=== PATIENT | female | born 1945 | race Two or more races ===

== ENCOUNTER 2016-12-23 19:38 | Inpatient (IN) | payer MEDICARE ==
[~2016-12-23] VITALS: Ht 170.2 cm; Wt 64.1 kg
--- NOTE | 2016-12-23 19:55 | NUR ---
Patient arrived via EMS to [facility]. Patient was calm and cooperative upon her arrival. Patient is alert and oriented to name and only. Vital signs are BP 116/82, Pulse 102, RR 20 SpO2 96% on room air. Patient is disoriented to time and situation. Patient is having trouble answering this nurses questions. Patient has Hx of Aphasia r/t recent stroke on 12/04. Patient ate 100% of her dinner after her assessment. Patient is sitting quietly in day room at this time and is in no acute distress. Will continue to monitor.
--- NOTE | 2016-12-23 20:00 | NUR ---
Behavior Intervention Response and Plan: BIRP Note: Behavior: Assumed Care of patient, patient located in Patient Room at shift change. Patient exhibited the following behavior Restless, Disorganized, Compliant. Brief assessment on rounds of vital signs, medication needs, lab studies, and pain. Treatment plan problems . Intervention: Patient assessed and the following interventions initiated safety checks 15 Minute Checks Head to toe Assessment , Cognitive Assessment , Oral Hydration. Response: After interactions and interventions patient responded in the following manner, Able to Focus on Task , Cooperative ,Compliant. Continue to assess behaviors and condition will continue to monitor throughout the shift as needed. Patient educated on ADL's, and hand hygiene. 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 Continue to assess patient for changes in above assessment. Monitor for medication needs, pain, and safety concerns. Hourly rounding performed to ensure safe environment.
[2016-12-23 20:29] VITALS: BP 116/82
[2016-12-23] MEDS ORDERED: ASPI-630 PO (20:52)
[2016-12-23] MEDS ORDERED: DOCU100C28 PO (20:54)
[2016-12-23] MEDS ORDERED: ATOR40TA59 PO (20:54)
[2016-12-23] MEDS ORDERED: POLY255P PO (20:55)
[2016-12-23] MEDS ORDERED: FAMO20TA5 PO (21:10)
[2016-12-23] MEDS ORDERED: MAGN400O7 PO (21:10)
[2016-12-23] MEDS ORDERED: BISA10SU55 RC (21:10)
[2016-12-23] MEDS ORDERED: SENN-79 PO (21:10)
[2016-12-23] MEDS ORDERED: HALO5AMP2 SUBCUT (21:10)
[2016-12-23] MEDS ORDERED: ACET325T9 PO (21:10)
[2016-12-23] MEDS ORDERED: RISP1DIS PO (21:10)
[2016-12-23] MEDS ORDERED: BISACODYL 10 MG SUPP.RECT RC PRN (21:30)
[2016-12-23] MEDS ORDERED: MAG HYDROX/AL HYDROX/SIMETH 30 ML ORAL.SUSP PO PRN (21:30)
[2016-12-23] MEDS ORDERED: FAMOTIDINE 20 MG TABLET PO PRN (21:30)
[2016-12-23] MEDS ORDERED: SENNOSIDES 8.6 MG TABLET PO PRN (21:30)
[2016-12-23] MEDS ORDERED: ACETAMINOPHEN 325 MG TABLET PO PRN (21:30)
[2016-12-23] MEDS ORDERED: METHYL SALICYLATE/MENTHOL TOPICAL OINTMENT 29GM TUBE. TP PRN (21:30)
[2016-12-23] MEDS ORDERED: MAGNESIUM HYDROXIDE 2,400 MG/30 ML ORAL.SUSP. PO PRN (21:30)
[2016-12-23] MEDS: risperiDONE 1 MG TABLET. PO SCH (22:00)
[2016-12-24 06:12] VITALS: BP 119/73
--- NOTE | 2016-12-24 06:35 | NUR ---
Patient has been provided with Practical Counseling for tobacco cessation. It included a face to face interaction and the following was discussed: Recognizing danger situations, Developing coping skills,Basic cessation information. Will follow for discharge needs and discharge planning.
--- NOTE | 2016-12-24 06:47 | EKG ---
[address] [address] Test Date: 2016-12-24 Test Time: 06:18:42 Pat Name: GITA CASTELLON Department: Room: [address] [place] [address] Gender: F Box Person: BRIGIDO : 1945 Requested By: RELL PUENTE Order Number: [id number] Reading MD: Darrius Urias Measurements Intervals [place] Rate: 97 P: 53 WV: 124 QRS: -35 QRSD: 86 T: 34 QT: 358 QTc: 459 Interpretive Statements SINUS RHYTHM Electronically Signed On 12-26-2016 11:50:39 CDT by Darrius Urias
[2016-12-24 08:07] LABS: BASO # 0.1 x10^3/uL (0.0-0.2); BASO % 1 % (0-3); EOS # 0.1 x10^3/uL (0.0-0.7); EOS % 2 % (0-3); HEMATOCRIT 43.6 % (36.0-47.0); HEMOGLOBIN 14.5 g/dL (12.0-15.5); LYMPH # 1.7 x10^3/uL (1.0-4.8); LYMPH % 31 % (24-48); MEAN CORPUSCULAR HEMOGLOBIN 31 pg (25-35); MEAN CORPUSCULAR HGB CONC 33 g/dL (31-37); MEAN CORPUSCULAR VOLUME 93 fL (79-100); MONO # 0.5 x10^3/uL (0.0-1.1); MONO % 10 % (0-9); NEUT # 3.1 x10^3uL (1.8-7.7); NEUT % 56 % (31-73); PLATELET COUNT 269 x10^3/uL (140-400); RED CELL DISTRIBUTION WIDTH 12.5 % (11.5-14.5); WHITE BLOOD COUNT 5.5 x10^3/uL (4.0-11.0)
[2016-12-24 08:32] LABS: ALBUMIN 3.9 g/dL (3.4-5.0); CALCIUM 9.4 mg/dL (8.5-10.1); CREATININE 0.8 mg/dL (0.6-1.0); GFR 71.1; MAGNESIUM 2.2 mg/dL (1.8-2.4); POTASSIUM 3.7 mmol/L (3.5-5.1); TOTAL BILIRUBIN 1.2 mg/dL (0.2-1.0); TOTAL PROTEIN 7.9 g/dL (6.4-8.2)
[2016-12-24] MEDS: ATORVASTATIN CALCIUM 20 MG TABLET PO SCH ×2 (09:00→09:07)
[2016-12-24] MEDS: NICOTINE 21MG PATCH. TD SCH ×2 (09:00→09:07)
[2016-12-24] MEDS: ASPIRIN 81 MG TAB.CHEW PO SCH ×2 (09:00→09:08)
[2016-12-24] MEDS: POLYETHYLENE GLYCOL 3350 17 GM PACKET. PO SCH ×2 (09:00→09:07)
[2016-12-24] MEDS: DOCUSATE SODIUM 100 MG CAPSULE PO SCH ×3 (09:00→19:45)
[2016-12-24] MEDS: risperiDONE 1 MG TABLET. PO SCH (09:07)
[2016-12-24 11:03] LABS: THYROID STIM HORMONE (TSH) 3.277 uIU/mL (0.358-3.740)
[2016-12-24 12:07] LABS: T3 TOTAL 136 ng/dL (71-180); THYROXINE 7.8 ug/dL (4.5-12.0)
--- NOTE | 2016-12-24 15:20 | HP ---
ADMIT DATE: 12/24/2016 HISTORY AND PHYSICAL FOR THE [facility] REASON FOR ADMISSION TO [facility]IT: This is a 71-year-old female, who has been at [facility] rehabilitation after suffering a stroke on 12/08/2016. She had a left temporoparietal intraparenchymal hemorrhage and subsequent cognitive impairment, gait ataxia decline and aphasia. She was then admitted for rehab. While at rehab evidently she has been angry, irritable and threatening to hit people and physically aggressive with her son, requiring one-on-one and p.r.n. Haldol prescribed. ALLERGIES: CODEINE. MEDICATIONS: Haldol had been prescribed and discontinued. Other medications reviewed and are available on the MAR. PAST MEDICAL HISTORY: As stated; 1. Recent left temporoparietal intraparenchymal hemorrhage. 2. Cognitive impairment. 3. Gait ataxia. 4. Aphasia. 5. AFib with ablation. 6. Carotid artery stenosis. 7. Hyperlipidemia. 8. Peptic ulcer disease. 9. Headaches. 10. Gastroesophageal reflux disease 11. Degenerative joint disease. 12. Generalized anxiety disorder. PAST SURGICAL HISTORY: She has had a carotid endarterectomy, 3 back surgeries. HABITS: The patient was a smoker and at the time of her stroke, she states that she no longer smokes. In the records states that she smoked up to 40 cigarettes a day. Drinks occasionally. Previously lived at home, independent with ADLs and mobility without assistance prior to stroke. She states she has a cat that she absolutely loves. She also stated that she never smoked in the house. REVIEW OF SYSTEMS: Review of the review of systems on 12/08/2016. I believe the patient no longer really has aphasia and the patient ambulates without a walker and did not have any other complaints. She was fairly good with her history, but then would make some statements that made no sense during the interview. OBJECTIVE: VITAL SIGNS: Blood pressure 119/73, pulse 104, respirations 20, pulse ox 95% on room air. The patient's height is 67 inches, weight 139 pounds. GENERAL: The patient ambulated to her room without difficulty. HEENT: Her hearing is normal. Her eyes were clear. Her pupils were equal, round, react to light. Extraocular muscles were intact. The patient denied any hemianopsia. Her nose was patent. Her throat was clear. NECK: Supple, without adenopathy, could not appreciate any carotid bruits. ABDOMEN: Soft, nontender. EXTREMITIES: Without edema. NEUROLOGIC: Machine Feller strength slightly weaker on the left. Reflexes were 2+/4. As stated, she ambulates without assistance. Gag reflex is intact. Able to clear her throat without problems and can follow directions for cranial nerves. LABORATORY DATA: Normal CBC. Chemistry; vitamin D is pending. TSH is normal. Bilirubin slightly elevated at 1.2 with normal other tests. Iron studies normal. RPR pending. MENTAL STATUS: The patient does admit to being somewhat angry and irritable, but not threatening anyone. She wants to go home and be with her cat. She knew her address and then made some confusing statements. ASSESSMENT: 1. A 71-year-old status post CVA and has resolved most of the residual deficits that have been stated in the transfer information. 2. Tobacco use disorder. 3. Gastroesophageal reflux disease. 4. Anxiety. 5. Peptic ulcer disease. 6. Degenerative joint disease. 7. Fall risk. 8. Previous dysphagia. Should have this reevaluated. PLAN: Follow along with Dr. Menendez. Treat her medical conditions. FER MATTSON DO DR: JHOANA/gui JOB#: [id number] / [id number]
[2016-12-24] MEDS: risperiDONE ORAL 1 MG/ML 30ml BOTTLE. PO SCH (17:31)
--- NOTE | 2016-12-24 18:48 | NUR ---
Behavior Intervention Response and Plan: BIRP Note: Behavior: Assumed Care of patient, patient located in Dayroom at shift change. Patient exhibited the following behavior Restless, Disorganized, Resistive. Brief assessment on rounds of vital signs, medication needs, lab studies, and pain. Treatment plan problems . Intervention: Patient assessed and the following interventions initiated safety checks 15 Minute Checks Head to toe Assessment , Cognitive Assessment , Oral Hydration. Response: After interactions and interventions patient responded in the following manner, Able to calm , non-compliant , resistive. Continue to assess behaviors and condition will continue to monitor throughout the shift as needed. Patient educated on ADL's, and hand hygiene. 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 Continue to assess patient for changes in above assessment. Monitor for medication needs, pain, and safety concerns. Hourly rounding performed to ensure safe environment.
--- NOTE | 2016-12-24 22:00 | NUR ---
Behavior Intervention Response and Plan: BIRP Note: Behavior: Assumed Care of patient, patient located in Hallway at shift change. Patient exhibited the following behavior Interactive, Wandering, Non Compliant with Meds. Brief assessment on rounds of vital signs, medication needs, lab studies, and pain. Treatment plan problems . Intervention: Patient assessed and the following interventions initiated safety checks 15 Minute Checks Head to toe Assessment , Call dick in reach , Medications. Response: After interactions and interventions patient responded in the following manner, Resistive , Social ,Resistive. Continue to assess behaviors and condition will continue to monitor throughout the shift as needed. Patient educated on ADL's, and hand hygiene. 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 Continue to assess patient for changes in above assessment. Monitor for medication needs, pain, and safety concerns. Hourly rounding performed to ensure safe environment.
[2016-12-24 23:11] LABS: HEMOGLOBIN A1C 5.8 % (4.8-5.6)
[2016-12-25 06:45] VITALS: BP 111/63
[2016-12-25] MEDS: risperiDONE ORAL 1 MG/ML 30ml BOTTLE. PO SCH ×2 (08:08→19:17)
[2016-12-25] MEDS: NICOTINE 21MG PATCH. TD SCH (09:00)
[2016-12-25] MEDS: POLYETHYLENE GLYCOL 3350 17 GM PACKET. PO SCH (09:00)
[2016-12-25] MEDS: DOCUSATE SODIUM 100 MG CAPSULE PO SCH ×2 (09:00→19:17)
[2016-12-25] MEDS: ASPIRIN 81 MG TAB.CHEW PO SCH (09:00)
[2016-12-25] MEDS: ATORVASTATIN CALCIUM 20 MG TABLET PO SCH (09:00)
--- NOTE | 2016-12-25 09:37 | CONS ---
DATE OF CONSULTATION: 12/23/2016 REASON FOR CONSULTATION: Status post hemorrhagic stroke with psychosis and behavior disturbances. HISTORY OF PRESENT ILLNESS: This is a 71-year-old right-handed female, who was transferred from rehab center because of increasing symptoms of behavior disturbances, described as aggressive behavior and she has been very agitated and sometimes threatened to hurt herself and other people. On 12/04/2016, the patient had difficulty to speak and had comprehension problems. She was found to have a left hemorrhagic stroke described as a left temporoparietal intraperitoneal hemorrhage resulted in a sensory aphasia includes comprehension, naming, writing, and difficulty finding words. The patient was evaluated by neurosurgeon and Neurology, who recommended conservative management after obtaining MRI and MRA. During her rehabilitation, the patient became very agitated with aggressive behavior. PAST MEDICAL HISTORY: Significant for hemorrhagic stroke as described above, atrial fibrillation, hypertension, hyperlipidemia, peptic ulcer disease, global headache, acute GERD, degenerative joint and disk disease, and anxiety disorder. PAST SURGICAL HISTORY: Significant for lumbosacral spine surgeries x 3. SOCIAL HISTORY: The patient lives alone independently. She is a smoker and she smoked 40 cigarettes daily. There is no history of alcohol drinking or illicit drug use. FAMILY HISTORY: Noncontributory. CURRENT HOME MEDICATIONS: Lipitor 40 mg daily, MiraLax 17 g p.r.n. for constipation, Colace 100 mg b.i.d., aspirin 81 mg daily, nicotine 21 mg 1 patch, Risperdal 1 mg b.i.d., olanzapine 2.5 mg p.o. q.2 hours p.r.n. for agitation, Senna 8.6 mg b.i.d., magnesium (MOM), Pepcid 20 mg p.o. daily, Dulcolax suppository, and Tylenol. ALLERGIES: . REVIEW OF SYSTEMS: A 10-point review of system was performed and consistent with significant language dysfunction and sensory aphasia. PHYSICAL EXAMINATION: GENERAL: Well-developed, well-nourished white female, not in acute distress. She weighs 159 pounds. VITAL SIGNS: Blood pressure 118/73, respiratory rate 20, pulse is 104, sinus tachycardia, oxygen saturation 95% on room air, and temperature is 97. HEENT: Normocephalic, atraumatic, otherwise unremarkable. NECK: Supple. Negative for carotid bruit, lymphadenopathy or thyromegaly. LUNGS: Clear to A and P. CARDIOVASCULAR: Regular rate and rhythm, normal S1, S2. ABDOMEN: Soft. Bowel sounds positive. EXTREMITIES: Negative for cyanosis, clubbing or edema. NEUROLOGICAL EXAM: 1. Mental Status: The patient is alert to herself, but she is confused and disoriented to place, time and person. Speech is somewhat fluent, but comprehension, naming, writing, and readings are poor. The patient follows 1-step commands. Her comprehension is poor as well as her insight. Memory: Language and abstract thinking are markedly severely impaired. Comprehension, reading, writing, repetitions are impaired. 2. Cranial Nerves: Visual sanchez appeared to be intact. Pupils are reactive to light and accommodation. Extraocular movements are intact. There is no nystagmus. There is no facial motor or sensory deficit. Hearing is appeared to be intact. The palate is elevated symmetrically. Sternocleidomastoid muscles are powerful bilaterally. The patient shrugs her shoulders symmetrically with protrudes her tongue in the midline without fasciculation or atrophy. 3. Motor Examination: No focal muscle bulk was seen. The tone is normal. The strength is 4/5 throughout. Sensory examination revealed normal pinprick on light touch, senses throughout. Deep tendon reflexes were symmetric and hypoactive with absent Achilles responses bilaterally. Gait and coordination are normal. LABORATORY DATA: CBC revealed white blood cells of 5500, hemoglobin 14.5, hematocrit 43.6, and platelet count 269,000. Chemistry revealed sodium of 141, potassium 3.7, chloride 104, CO2 29. BUN 17, creatinine 0.8, glucose is 115, calcium 9.4. Liver enzymes are normal. Lipid profile is normal. Thyroid profile is normal. Vitamin D is pending. IMPRESSION: 1. Status post left temporoparietal hemorrhagic stroke resulted in marked language dysfunctions including naming, writing, comprehension, repetition, finding difficulty words and apraxia. 2. Intermittent psychosis with behavior disturbances. 3. Multiple medical problems include hypertension, hyperlipidemia, GERD, peptic ulcer disease, status post three back surgeries and endarterectomy. RECOMMENDATIONS: 1. Continue with current home medications. 2. Continue with psychiatric evaluation and continue with current psychiatric care initiated by Dr. Menendez. M Annel YEE MD DR: ROSAURA/gui JOB#: [id number] / [id number]
--- NOTE | 2016-12-25 11:30 | NUR ---
THERAPEUTIC RECREATION GROUP NOTE TITLE :Movement to Music:Flexibility ACTIVITY : Movement/ Exercise GOAL : Increase morale, attention, flexibility. Decrease stress/anxiety. DURATION : 30 Minutes RESPONSE : No participation.
[2016-12-25 16:47] VITALS: BP 105/66
--- NOTE | 2016-12-25 18:49 | NUR ---
Behavior Intervention Response and Plan: BIRP Note: Behavior: Assumed Care of patient, patient located in Hallway at shift change. Patient exhibited the following behavior withdrawn, calm, Non Compliant with Meds. Brief assessment on rounds of vital signs, medication needs, lab studies, and pain. Treatment plan problems . Intervention: Patient assessed and the following interventions initiated safety checks 15 Minute Checks Head to toe Assessment , Call dick in reach , Medications. Response: After interactions and interventions patient responded in the following manner, calm , interactive, compliant. Continue to assess behaviors and condition will continue to monitor throughout the shift as needed. Patient educated on ADL's, and hand hygiene. Plan: Continue to monitor Master Treatment Plan for patient's progress toward short term goals of Improved Mood, Medication Compliance, mcfp goals to return to previous living setting vs placement. Continue to assess patient for changes in above assessment. Monitor for medication needs, pain, and safety concerns. Hourly rounding performed to ensure safe environment.
--- NOTE | 2016-12-25 19:54 | PDOC ---
Exam Anson Demential Exam: Anson Note: Please also refer to the separate dictated note~for this date of service dictated separately.~Patient seen individually. Discussed the patient with Nursing staff reviewed the chart.~Reviewed interim history and current functioning. Reviewed vital signs,~Labs/ Radiology~and current medications noted below. Continue current treatment with the changes noted in the dictated addendum note Assessment: Vital Signs: Vital Signs Date Time Temp Pulse Resp B/P (MAP) Pulse Ox O2 Delivery O2 Flow Rate FiO2 12/25/16 16:47 97.6 104 18 105/66 (79) 95 I&O Intake and Output 12/25/16 06:59 Intake Total 600 ml Balance 600 ml Intake Oral 600 ml Current Medications: Meds: Current Medications Nicotine (Nicoderm Cq 21mg) 1 patch DAILY TD ; Start 12/24/16 at 09:00 Risperidone (RisperDAL) 1 mg BID PO Last administered on 12/24/16 09:07; Start 12/23/16 at 22:00; Stop 12/24/16 at 16:36; Status DC Acetaminophen (Tylenol) 650 mg PRN Q4HRS PRN PO PAIN / TEMP; Start 12/23/16 at 21:30 Aspirin (Children'S Aspirin) 81 mg DAILY PO ; Start 12/24/16 at 09:00 Bisacodyl (Dulcolax Supp) 10 mg PRN DAILY PRN RC CONSTIPATION; Start 12/23/16 at 21:30 Docusate Sodium (Colace) 100 mg BID PO Last administered on 12/25/16 19:17; Start 12/24/16 at 09:00 Famotidine (Pepcid) 20 mg PRN BID PRN PO DYSPEPSIA; Start 12/23/16 at 21:30 Magnesium Hydroxide (Milk Of Magnesia) 2,400 mg PRN DAILY PRN PO CONSTIPATION; Start 12/23/16 at 21:30 Polyethylene Glycol (miraLAX) 17 gm DAILY PO ; Start 12/24/16 at 09:00 Sennosides (Senna) 8.6 mg PRN BID PRN PO CONSTIPATION; Start 12/23/16 at 21:30 Atorvastatin Calcium (Lipitor) 40 mg DAILY PO ; Start 12/24/16 at 09:00 Al Hydroxide/Mg Hydroxide (Mylanta Plus Xs) 15 ml PRN AFTMEALHC PRN PO DYSPEPSIA; Start 12/23/16 at 21:30 Multi-Ingredient Ointment (Analgesic [place]) 1 josiane PRN QID PRN TP MUSCLE PAIN; Start 12/23/16 at 21:30 Olanzapine (ZyPREXA ZYDIS) 2.5 mg PRN Q2HR PRN PO ANXIETY / AGITATION; Start at 21:30 Risperidone (RisperDAL) 1 mg BID PO Last administered on 12/25/16t 19:17; Start 12/24/16 at 21:00 Active Scripts Active Reported Haldol (Haloperidol Lactate) 5 Mg/1 Ml Ampul 2 Mg SUBCUT PRN Q4HRS PRN Famotidine 20 Mg Tablet 20 Mg PO PRN BID PRN Senna (Sennosides) 8.6 Mg Tablet 8.6 Mg PO PRN BID PRN Milk Of Magnesia (Magnesium Hydroxide) 400 Mg/5 Ml Oral.susp 2,400 Mg PO PRN DAILY PRN Dulcolax (Bisacodyl) 10 Mg Supp.rect 10 Mg RC PRN DAILY Tylenol (Acetaminophen) 325 Mg Tablet 650 Mg PO Q4HRS PRN Risperidone 1 Mg/1 Ml Disp.syrin 1 Mg PO BID Polyethylene Glycol 3350 255 Gm Powder 17 Gm PO DAILY Docusate Sodium 100 Mg Capsule 100 Mg PO BID Atorvastatin Calcium 40 Mg Tablet 40 Mg PO DAILY Aspirin 81 Mg Tab.chew 81 Mg PO DAILY RELL PUENTE MD Dec 25, 2016 19:54
--- NOTE | 2016-12-25 22:29 | HP ---
ADMIT DATE: 12/23/2016 IDENTIFYING DATA: The patient is a 71-year-old female who is in the rehabilitation unit, where she was admitted status post CVA. The patient has been increasingly angry, irritable, threatening to hit, wandering, physical aggressive at son. She has appeared paranoid, delusional, confusion worsened by her aphasia. She has failed outpatient psychiatric interventions resulting in this referral. The patient was seen individually evening of 12/25/2016 for this evaluation. Discussed with nursing staff, reviewed current past records. CHIEF COMPLAINT: "I don't know. Ask my son. I don't know anything." HISTORY OF PRESENT ILLNESS: The patient has a history of major neurocognitive disorder, vascular with aphasia, status post cerebrovascular accident. She has been refusing her psychotropics, threatening to hit staff at the rehab facility, physically aggressive with son, increasingly confused, paranoid, delusional. She has had sleep and appetite changes, had to be placed on one-on-one status, p.r.n. Haldol was given for control of for psychosis, agitation. No clear history of bipolar disorder, suicidal or homicidal ideation. PAST PSYCHIATRIC HISTORY: As above. Symptoms have been worsening for about 1 week. PAST MEDICAL HISTORY: Left-sided hemorrhagic CVA 3 weeks on 12/08/2016, atrial fibrillation with ablation, carotid artery stenosis status post carotid endarterectomy, hyperlipidemia, peptic ulcer disease, chronic headaches, degenerative joint disease, GERD, history of 3 back surgeries, tobacco abuse. Accu-Cheks none; diet regular; medications whole when complied; ambulatory ad sukhjinder. CODE STATUS: Full. ALLERGIES: CODEINE. FAMILY HISTORY: Noncontributory. CURRENT PSYCHOTROPICS: Risperdal 1 mg b.i.d., Zyprexa p.r.n. FAMILY HISTORY: Noncontributory. SOCIAL HISTORY: No alcohol, drug abuse, physical, sexual or elder abuse history is noted. Not known to be a perpetrator. MENTAL STATUS EXAMINATION: The patient had barricaded her room, refused to let me in, I had to pry the door open. She is paranoid, suspicious, refusing to answer questions, "Call my son" and she related a telephone #[phone] for the son. However, the telephone number we have on file for the son is [phone]-. Insight limited, judgment marginal, language function impaired, due to aphasia the attention span short. Mood and affect labile, psychotic. ASSETS: Supportive family. IMPRESSION: Major neurocognitive disorder, vascular with delusion, depression, behavioral disturbance; anxiety disorder, unspecified; impulse control disorder, unspecified. Rest as above. PLAN: Admit to the geropsychiatry unit at [facility]. I will see the patient daily individually, observe baseline and make further adjustments as clinically indicated. Continue current psychotropics but I would like to reduce the Risperdal given her history of CVA. We will go ahead and reduce it from 1 mg b.i.d. to 0.5 mg in the morning and 1 mg at night, add Zoloft 50 mg a day for her mood, anxiety, obsessive thought processes. Consider Depakote as a mood stabilizer. I will see the patient daily individually. Request medical followup with Dr. Mccord/Dr. Evans further adjustments per clinically indicated. RELL PUENTE MD DR: BRIONNA/gui JOB#: [id number] / [id number]
--- NOTE | 2016-12-26 00:04 | NUR ---
Behavior Intervention Response and Plan: BIRP Note: Behavior: Assumed Care of patient, patient located in Patient Room at shift change. Patient exhibited the following behavior Disorganized, Irritable, Defensive. Brief assessment on rounds of vital signs, medication needs, lab studies, and pain. Treatment plan problems :1-2 Intervention: Patient assessed and the following interventions initiated safety checks 15 Minute Checks Cognitive Assessment , Head to toe Assessment , Medications. Response: After interactions and interventions patient responded in the following manner, Withdrawn , Non Compliant with Meds ,Non Compliant. Continue to assess behaviors and condition will continue to monitor throughout the shift as needed. Patient educated on ADL's, and hand hygiene. 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 Plan: Continue to monitor Master Treatment Plan for patient's progress toward short term goals of Decreased Anxiety, Improved Mood, longterm goals to return to previous living setting vs placement. Continue to assess patient for changes in above assessment. Monitor for medication needs, pain, and safety concerns. Hourly rounding performed to ensure safe environment.
[2016-12-26 06:09] VITALS: BP 117/79
[2016-12-26] MEDS ORDERED: risperiDONE 0.25 MG TABLET. PO SCH (09:00)
--- NOTE | 2016-12-26 09:15 | NUR ---
THERAPEUTIC RECREATION GROUP NOTE TITLE :[place]/ 21 ACTIVITY : Activities and Games GOAL : Increase social interaction, fine motor skills. Maintain or improve mental functioning. Decrease restlessness DURATION : 60 minutes RESPONSE : No participation.
[2016-12-26] MEDS: DOCUSATE SODIUM 100 MG CAPSULE PO SCH ×2 (09:30→21:13)
[2016-12-26] MEDS: ATORVASTATIN CALCIUM 20 MG TABLET PO SCH (09:30)
[2016-12-26] MEDS: ASPIRIN 81 MG TAB.CHEW PO SCH (09:31)
[2016-12-26] MEDS: POLYETHYLENE GLYCOL 3350 17 GM PACKET. PO SCH (09:31)
[2016-12-26] MEDS: NICOTINE 21MG PATCH. TD SCH (09:31)
[2016-12-26] MEDS: SERTRALINE 25 MG TABLET. PO SCH (09:33)
--- NOTE | 2016-12-26 09:46 | NUR ---
SW reviewed Pt insurance upon admit. Face sheet, Intake and C-SNAP indicate Pt. is Medicare A & B only, with No Part C. Auth not required.
--- NOTE | 2016-12-26 09:47 | NUR ---
SHIRLEY attempted to meet w/Pt. while PT. in the day room to complete Psychosocial Assessment and reason for admit. Pt. was agitated, demanding to be let out side so that she could leave and we wouldn't have to worry about her ever coming back. SHIRLEY stated SW could not open the door to the patio, and she needed to stay so she could be seen by the DrLindsey this evening. PT. stated "This place is fucked up". Pt. refused to continue to talk w/this SW since SHIRLEY was not going to allow Pt. to leave.
--- NOTE | 2016-12-26 11:05 | NUR ---
ACTIVITY THERAPY ASSESSMENT Completed based on observation and interview. Pt. was laying in her bed and originally said she did not want to talk but continued to express her desire to leave and her attention went back to her the medical bracelet on her arm being too tight. CHARTER BOAT CAPTAIN got Pt. helped put on a new bracelet after several minutes of listening to Pt. Pt. stated she could not think about things she likes to do at this time because there was too much going on in her head. Pt. continued to talk about wanting to leave, not even needing a ride, she would just walk. CHARTER BOAT CAPTAIN explained the structure and encouraged cooperation, group participation, and explained the doctor comes in the evenings. Pt. had difficulty expressing herself clearly, she had difficulty using number values clearly when it came to age, dates, etc. Pt. had trouble using the correct word to complete her sentences. Pt. really wanted a cigarette and repeatedly asked for one and to go outside. CHARTER BOAT CAPTAIN said smoking was not allowed but talked about nurse about alternatives gum/patches. Pt. was agreeable to take medication in order for her to go outside. Pt. needed reminders about structure when she began to ask to be let out. Pt. Initial goal aimed to increase time management skills and leisure awareness: Pt. will participate in all group and individual activities focused on time management.
--- NOTE | 2016-12-26 13:15 | NUR ---
THERAPEUTIC RECREATION GROUP NOTE TITLE :Grid Scattergories ACTIVITY : Cognitive Stimulation GOAL : Maintain or improve cognitive functioning and memory. DURATION : 60 minutes RESPONSE : No participation.
--- NOTE | 2016-12-26 14:30 | NUR ---
THERAPEUTIC RECREATION GROUP NOTE TITLE :Movie, Popcorn, Cookies and Coffee ACTIVITY : Activities and Games GOAL : Increase alertness, focus, morale, decrease stress DURATION : 90 minutes RESPONSE : Full participation. Pt. watched the movie throughout the session. She got up several times needing more snacks. With reminders and encouragement, Pt. complied to rejoin the movie and wait patiently. She was able to express herself clearly.
[2016-12-26 15:52] VITALS: BP 104/64
--- NOTE | 2016-12-26 20:01 | PDOC ---
Exam Anson Demential Exam: Anson Note: Please also refer to the separate dictated note~for this date of service dictated separately.~Patient seen individually. Discussed the patient with Nursing staff reviewed the chart.~Reviewed interim history and current functioning. Reviewed vital signs,~Labs/ Radiology~and current medications noted below. Continue current treatment with the changes noted in the dictated addendum note Assessment: Vital Signs: Vital Signs Date Time Temp Pulse Resp B/P (MAP) Pulse Ox O2 Delivery O2 Flow Rate FiO2 12/26/16 15:52 97.3 131 18 104/64 (77) 95 I&O Intake and Output 12/26/16 07:00 Intake Total 520 ml Balance 520 ml Intake Oral 520 ml # Voids 1 Current Medications: Meds: Current Medications Nicotine (Nicoderm Cq 21mg) 1 patch DAILY TD Last administered on 12/26/16 09: 31; Start 12/24/16 at 09:00 Risperidone (RisperDAL) 1 mg BID PO Last administered on 12/24/16 09:07; Start 12/23/16 at 22:00; Stop 12/24/16 at 16:36; Status DC Acetaminophen (Tylenol) 650 mg PRN Q4HRS PRN PO PAIN / TEMP; Start 12/23/16 at 21:30 Aspirin (Children'S Aspirin) 81 mg DAILY PO Last administered on 12/26/16 09: 31; Start 12/24/16 at 09:00 Bisacodyl (Dulcolax Supp) 10 mg PRN DAILY PRN RC CONSTIPATION; Start 12/23/16 at 21:30 Docusate Sodium (Colace) 100 mg BID PO Last administered on 12/26/16 09:30; Start 12/24/16 at 09:00 Famotidine (Pepcid) 20 mg PRN BID PRN PO DYSPEPSIA; Start 12/23/16 at 21:30 Magnesium Hydroxide (Milk Of Magnesia) 2,400 mg PRN DAILY PRN PO CONSTIPATION; Start 12/23/16 at 21:30 Polyethylene Glycol (miraLAX) 17 gm DAILY PO Last administered on 12/26/16 09: 31; Start 12/24/16 at 09:00 Sennosides (Senna) 8.6 mg PRN BID PRN PO CONSTIPATION; Start 12/23/16 at 21:30 Atorvastatin Calcium (Lipitor) 40 mg DAILY PO Last administered on 12/26/16 09 :30; Start 12/24/16 at 09:00 Al Hydroxide/Mg Hydroxide (Mylanta Plus Xs) 15 ml PRN AFTMEALHC PRN PO DYSPEPSIA; Start 12/23/16 at 21:30 Multi-Ingredient Ointment (Analgesic [place]) 1 josiane PRN QID PRN TP MUSCLE PAIN; Start 12/23/16 at 21:30 Olanzapine (ZyPREXA ZYDIS) 2.5 mg PRN Q2HR PRN PO ANXIETY / AGITATION Last administered on 12/26/16 11:47; Start 12/23/16 at 21:30 Risperidone (RisperDAL) 1 mg BID PO Last administered on 12/25/16 19:17; Start 12/24/16 at 21:00; Stop 12/25/16 at 21:44; Status DC Risperidone (RisperDAL) 1 mg HS PO ; Start 12/26/16 at 21:00; Stop 12/26/16 at 21:00; Status DC Risperidone (RisperDAL) 0.5 mg DAILY PO Last administered on 12/26/16 09:33; Start 12/26/16 at 09:00; Stop 12/26/16 at 18:34; Status DC Sertraline HCl (Zoloft) 50 mg DAILY PO Last administered on 12/26/16 09:33; Start 12/26/16 at 09:00 Vitamin D (Vitamin D3) 50,000 unit WEEKLY PO ; Start 12/27/16 at 09:00 Mirtazapine (Remeron) 7.5 mg QHS PO ; Start 12/26/16 at 21:00 Quetiapine Fumarate (SEROquel) 12.5 mg BID92 PO ; Start 12/27/16 at 09:00 Quetiapine Fumarate (SEROquel) 25 mg HS PO ; Start 12/26/16 at 21:00 Active Scripts Active Reported Haldol (Haloperidol Lactate) 5 Mg/1 Ml Ampul 2 Mg SUBCUT PRN Q4HRS PRN Famotidine 20 Mg Tablet 20 Mg PO PRN BID PRN Senna (Sennosides) 8.6 Mg Tablet 8.6 Mg PO PRN BID PRN Milk Of Magnesia (Magnesium Hydroxide) 400 Mg/5 Ml Oral.susp 2,400 Mg PO PRN DAILY PRN Dulcolax (Bisacodyl) 10 Mg Supp.rect 10 Mg RC PRN DAILY Tylenol (Acetaminophen) 325 Mg Tablet 650 Mg PO Q4HRS PRN Risperidone 1 Mg/1 Ml Disp.syrin 1 Mg PO BID Polyethylene Glycol 3350 255 Gm Powder 17 Gm PO DAILY Docusate Sodium 100 Mg Capsule 100 Mg PO BID Atorvastatin Calcium 40 Mg Tablet 40 Mg PO DAILY Aspirin 81 Mg Tab.chew 81 Mg PO DAILY RELL PUENTE MD Dec 26, 2016 20:01
[2016-12-26] MEDS ORDERED: QUEtiapine 25 MG TABLET. PO SCH (21:00)
[2016-12-26] MEDS ORDERED: MIRTAZAPINE 7.5 MG TABLET. PO SCH (21:00)
[2016-12-26] MEDS ORDERED: risperiDONE ORAL 1 MG/ML 30ml BOTTLE. PO SCH (21:00)
--- NOTE | 2016-12-26 23:32 | NUR ---
Behavior Intervention Response and Plan: BIRP Note: Behavior: Assumed Care of patient, patient located in Patient Room at shift change. Patient exhibited the following behavior Calm, Drowsy, Compliant. Brief assessment on rounds of vital signs, medication needs, lab studies, and pain. Treatment plan problems Dementia W/BD, Medicaiton Non-Compliance, and Fall risk. Intervention: Patient assessed and the following interventions initiated safety checks 15 Minute Checks Cognitive Assessment , Medications , Oral Hydration. Response: After interactions and interventions patient responded in the following manner, Calm , Compliant ,Cooperative. Continue to assess behaviors and condition will continue to monitor throughout the shift as needed. Patient educated on ADL's, and hand hygiene. Plan: Continue to monitor Master Treatment Plan for patient's progress toward short term goals of Decreased Agitation, Decreased Anxiety, terminal worker goals to return to previous living setting vs placement. Continue to assess patient for changes in above assessment. Monitor for medication needs, pain, and safety concerns. Hourly rounding performed to ensure safe environment.
--- NOTE | 2016-12-27 08:54 | NUR ---
Patient in locked hallway and is kicking the storage room, laundry room and seclusion room doors with her feet. Re-directed and told her to stop kicking the door. Will continue to monitor.
[2016-12-27] MEDS: SERTRALINE 25 MG TABLET. PO SCH ×2 (09:00→09:31)
[2016-12-27] MEDS: CHOLECALCIFEROL (VITAMIN D3) 50,000 UNIT CAPSULE PO SCH ×2 (09:00→09:34)
[2016-12-27] MEDS: DOCUSATE SODIUM 100 MG CAPSULE PO SCH ×3 (09:00→19:33)
[2016-12-27] MEDS: QUEtiapine 25 MG TABLET. PO SCH ×4 (09:00→14:11)
[2016-12-27] MEDS: ATORVASTATIN CALCIUM 20 MG TABLET PO SCH ×2 (09:00→09:31)
[2016-12-27] MEDS: ASPIRIN 81 MG TAB.CHEW PO SCH ×2 (09:00→09:31)
[2016-12-27] MEDS: NICOTINE 21MG PATCH. TD SCH ×2 (09:00→09:31)
[2016-12-27] MEDS: POLYETHYLENE GLYCOL 3350 17 GM PACKET. PO SCH ×2 (09:00→09:31)
--- NOTE | 2016-12-27 09:00 | NUR ---
THERAPEUTIC RECREATION GROUP NOTE TITLE :RELAX: Self Massage, Guided Imagery, Positive Affirmation, Gratitude Awareness ACTIVITY : Relaxation GOAL : Decrease stress, elevate mood, increase concentration/attention, encourage awareness DURATION : 50 Minutes RESPONSE : No participation.
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
--- NOTE | 2016-12-27 12:31 | NUR ---
Pt has been very agitated this morning and remains in the west boyer at this time. Have attempted numerous times to administer morning medications without success. Pt has been physically aggressive towards staff, spitting, hollering and banging on windows/doors. Pt talks about getting a cigarette and this nurse tries to tell her that there is a nicotene patch available that would help but she refuses to allow anybody to touch her. The nicotene patch dated 12/26 remains on upper back. PRN Zydis was given but was not effective. Pt refuses to eat at this time, will continue to monitor.
--- NOTE | 2016-12-27 14:15 | NUR ---
THERAPEUTIC RECREATION GROUP NOTE TITLE :Sing along with Keshia ACTIVITY : Music GOAL : Increase socialization, elevate mood, stimulate memory DURATION : 75 minutes RESPONSE : No participation.
[2016-12-27 16:00] VITALS: BP 101/57
--- NOTE | 2016-12-27 17:10 | NUR ---
Behavior Intervention Response and Plan: BIRP Note: Behavior: Assumed Care of patient, patient located in Hallway at shift change. Patient exhibited the following behavior Defensive, Disorganized, Non Compliant with Meds. Brief assessment on rounds of vital signs, medication needs, lab studies, and pain. Treatment plan problems 1 and 2. Intervention: Patient assessed and the following interventions initiated safety checks 15 Minute Checks Cognitive Assessment , Head to toe Assessment , Medications. Response: After interactions and interventions patient responded in the following manner, Non Compliant , Combative ,Irritable. Continue to assess behaviors and condition will continue to monitor throughout the shift as needed. Patient educated on ADL's, and hand hygiene. Plan: Continue to monitor Master Treatment Plan for patient's progress toward short term goals of Medication Compliance, Decreased Aggression, long term care phlebotomist goals to return to previous living setting vs placement. Continue to assess patient for changes in above assessment. Monitor for medication needs, pain, and safety concerns. Hourly rounding performed to ensure safe environment.
[2016-12-27] MEDS ORDERED: traZODone 50 MG TABLET. PO PRN (18:45)
[2016-12-27] MEDS: MIRTAZAPINE 15 MG TABLET PO SCH (19:36)
--- NOTE | 2016-12-27 20:00 | PDOC ---
Exam Anson Demential Exam: Anson Note: Please also refer to the separate dictated note~for this date of service dictated separately.~Patient seen individually. Discussed the patient with Nursing staff reviewed the chart.~Reviewed interim history and current functioning. Reviewed vital signs,~Labs/ Radiology~and current medications noted below. Continue current treatment with the changes noted in the dictated addendum note Assessment: Vital Signs: Vital Signs Date Time Temp Pulse Resp B/P (MAP) Pulse Ox O2 Delivery O2 Flow Rate FiO2 12/27/16 16:00 97.3 128 20 101/57 (72) 96 I&O Intake and Output 12/28/16 07:00 Intake Total 240 ml Balance 240 ml Intake Oral 240 ml Current Medications: Meds: Current Medications Nicotine (Nicoderm Cq 21mg) 1 patch DAILY TD Last administered on 12/26/16 09: 31; Start 12/24/16 at 09:00 Risperidone (RisperDAL) 1 mg BID PO Last administered on 12/24/16 09:07; Start 12/23/16 at 22:00; Stop 12/24/16 at 16:36; Status DC Acetaminophen (Tylenol) 650 mg PRN Q4HRS PRN PO PAIN / TEMP; Start 12/23/16 at 21:30 Aspirin (Children'S Aspirin) 81 mg DAILY PO Last administered on 12/26/16 09: 31; Start 12/24/16 at 09:00 Bisacodyl (Dulcolax Supp) 10 mg PRN DAILY PRN RC CONSTIPATION; Start 12/23/16 at 21:30 Docusate Sodium (Colace) 100 mg BID PO Last administered on 12/27/16 19:33; Start 12/24/16 at 09:00 Famotidine (Pepcid) 20 mg PRN BID PRN PO DYSPEPSIA; Start 12/23/16 at 21:30 Magnesium Hydroxide (Milk Of Magnesia) 2,400 mg PRN DAILY PRN PO CONSTIPATION; Start 12/23/16 at 21:30 Polyethylene Glycol (miraLAX) 17 gm DAILY PO Last administered on 12/26/16 09: 31; Start 12/24/16 at 09:00 Sennosides (Senna) 8.6 mg PRN BID PRN PO CONSTIPATION; Start 12/23/16 at 21:30 Atorvastatin Calcium (Lipitor) 40 mg DAILY PO Last administered on 12/26/16 09 :30; Start 12/24/16 at 09:00 Al Hydroxide/Mg Hydroxide (Mylanta Plus Xs) 15 ml PRN AFTMEALHC PRN PO DYSPEPSIA; Start 12/23/16 at 21:30 Multi-Ingredient Ointment (Analgesic [place]) 1 josiane PRN QID PRN TP MUSCLE PAIN; Start 12/23/16 at 21:30 Olanzapine (ZyPREXA ZYDIS) 2.5 mg PRN Q2HR PRN PO ANXIETY / AGITATION Last administered on 12/27/16 09:05; Start 12/23/16 at 21:30 Risperidone (RisperDAL) 1 mg BID PO Last administered on 12/25/16 19:17; Start 12/24/16 at 21:00; Stop 12/25/16 at 21:44; Status DC Risperidone (RisperDAL) 1 mg HS PO ; Start 12/26/16 at 21:00; Stop 12/26/16 at 21:00; Status DC Risperidone (RisperDAL) 0.5 mg DAILY PO Last administered on 12/26/16 09:33; Start 12/26/16 at 09:00; Stop 12/26/16 at 18:34; Status DC Sertraline HCl (Zoloft) 50 mg DAILY PO Last administered on 12/26/16 09:33; Start 12/26/16 at 09:00 Vitamin D (Vitamin D3) 50,000 unit WEEKLY PO ; Start 12/27/16 at 09:00 Mirtazapine (Remeron) 7.5 mg QHS PO Last administered on 12/26/16 21:14; Start 12/26/16 at 21:00; Stop 12/27/16 at 18:37; Status DC Quetiapine Fumarate (SEROquel) 12.5 mg BID92 PO ; Start 12/27/16 at 09:00 Quetiapine Fumarate (SEROquel) 25 mg HS PO Last administered on 12/26/16 21:13 ; Start 12/26/16 at 21:00; Stop 12/27/16 at 18:37; Status DC Mirtazapine (Remeron) 15 mg QHS PO Last administered on 12/27/16 19:36; Start 12/27/16 at 21:00 Quetiapine Fumarate (SEROquel) 50 mg HS PO Last administered on 12/27/16 19:36 ; Start 12/27/16 at 21:00 Trazodone HCl (Desyrel) 50 mg QHS PO Last administered on 12/27/16 19:36; Start 12/27/16 at 21:00 Trazodone HCl (Desyrel) 50 mg PRN DAILY PRN PO INSOMNIA, MAY REPEAT IN 1HR; Start 12/27/16 at 18:45 Active Scripts Active Reported Haldol (Haloperidol Lactate) 5 Mg/1 Ml Ampul 2 Mg SUBCUT PRN Q4HRS PRN Famotidine 20 Mg Tablet 20 Mg PO PRN BID PRN Senna (Sennosides) 8.6 Mg Tablet 8.6 Mg PO PRN BID PRN Milk Of Magnesia (Magnesium Hydroxide) 400 Mg/5 Ml Oral.susp 2,400 Mg PO PRN DAILY PRN Dulcolax (Bisacodyl) 10 Mg Supp.rect 10 Mg RC PRN DAILY Tylenol (Acetaminophen) 325 Mg Tablet 650 Mg PO Q4HRS PRN Risperidone 1 Mg/1 Ml Disp.syrin 1 Mg PO BID Polyethylene Glycol 3350 255 Gm Powder 17 Gm PO DAILY Docusate Sodium 100 Mg Capsule 100 Mg PO BID Atorvastatin Calcium 40 Mg Tablet 40 Mg PO DAILY Aspirin 81 Mg Tab.chew 81 Mg PO DAILY RELL PUENTE MD Dec 27, 2016 20:00
--- NOTE | 2016-12-27 20:50 | NUR ---
Behavior Intervention Response and Plan: BIRP Note: Behavior: Assumed Care of patient, patient located in Day Room at shift change. Patient exhibited the following behavior Restless, Calm, Disorganized. Brief assessment on rounds of vital signs, medication needs, lab studies, and pain. Treatment plan problems Dementia W/BD, Medicaiton Non-Compliance, and Fall risk. Intervention: Patient assessed and the following interventions initiated safety checks 15 Minute Checks Cognitive Assessment , Medications , Oral Hydration. Response: After interactions and interventions patient responded in the following manner, Restless , Drowsy ,Disorganized. Continue to assess behaviors and condition will continue to monitor throughout the shift as needed. Patient educated on ADL's, and hand hygiene. Plan: Continue to monitor Master Treatment Plan for patient's progress toward short term goals of Decreased Agitation, Decreased Anxiety, penitentiary goals to return to previous living setting vs placement. Continue to assess patient for changes in above assessment. Monitor for medication needs, pain, and safety concerns. Hourly rounding performed to ensure safe environment.
[2016-12-27] MEDS ORDERED: traZODone 50 MG TABLET. PO SCH (21:00)
[2016-12-27] MEDS ORDERED: QUEtiapine 50 MG TABLET. PO SCH (21:00)
--- NOTE | 2016-12-28 02:52 | NUR ---
Nursing Note Patient is becoming increasingly agitated in the day room and is exit seeking. Patient is trying to pry open cabinets and drawers. Patient is also attempting to pull tv wire off the wall. Patient is non redirectable or able to comprehend simple requests by staff. Patient given PRN Zyprexa per PRN order.
--- NOTE | 2016-12-28 03:15 | PN ---
DATE: 12/26/2016 PSYCHIATRIC PROGRESS NOTE This is a late entry for 12/26/2016 and covers the elements not covered in my initial note of 12/26/2016. SUBJECTIVE: I met with the patient on the evening of 12/26/2016. She is oriented to herself and not suspicious, refused the medications and morning assessment, exit-seeking, wandering, refused Zyprexa p.r.n. REVIEW OF SYSTEMS: No CV, , pulmonary, eye, ENT system symptoms on review. Reliability poor. MENTAL STATUS EXAM: Oriented to herself, insight Judgment, recent and remote memory, attention, concentration, fund of knowledge poor, consistent with her diagnosis mentioned in my initial note. LABORATORY DATA: Reviewed. IMPRESSION: Major neurocognitive disorder, Alzheimer, vascular with depression, delusion, behavioral disturbance; anxiety disorder, unspecified; impulse control disorder unspecified. PLAN: The patient slept just 1 hour previous evening, we will start Remeron 7.5 mg at bedtime. Change Risperdal to Seroquel 12.5 mg at 9 a.m., 2 p.m. and 25 mg at bedtime. Continue Zoloft 50 mg a day, Zyprexa p.r.n. Adjust further as clinically indicated. MAN Ketan PUENTE MD DR: BRIONNA/gui JOB#: [id number] / [id number]
[2016-12-28 06:12] VITALS: BP 137/89
--- NOTE | 2016-12-28 09:15 | NUR ---
THERAPEUTIC RECREATION GROUP NOTE TITLE :Music Bingo ACTIVITY : Music, Cognitive Stimulation GOAL : Increase socialization, elevate mood, stimulate memory, Maintain or improve cognitive functioning DURATION : 60 minutes RESPONSE : No participation.
[2016-12-28] MEDS: QUEtiapine 25 MG TABLET. PO SCH ×2 (09:17→14:07)
[2016-12-28] MEDS: DOCUSATE SODIUM 100 MG CAPSULE PO SCH ×2 (09:17→19:41)
[2016-12-28] MEDS: ASPIRIN 81 MG TAB.CHEW PO SCH (09:17)
[2016-12-28] MEDS: NICOTINE 21MG PATCH. TD SCH (09:18)
[2016-12-28] MEDS: SERTRALINE 25 MG TABLET. PO SCH (09:18)
[2016-12-28] MEDS: POLYETHYLENE GLYCOL 3350 17 GM PACKET. PO SCH (09:18)
[2016-12-28] MEDS: ATORVASTATIN CALCIUM 20 MG TABLET PO SCH (09:18)
--- NOTE | 2016-12-28 11:30 | NUR ---
THERAPEUTIC RECREATION GROUP NOTE TITLE :Movement to Music: Flexibility ACTIVITY : Movement/ Exercise GOAL : Increase morale, attention, flexibility. Decrease stress/anxiety. DURATION : 30 Minutes RESPONSE : No participation.
[2016-12-28] MEDS ORDERED: traZODone 50 MG TABLET. PO PRN (13:15)
--- NOTE | 2016-12-28 14:15 | NUR ---
THERAPEUTIC RECREATION GROUP NOTE TITLE :Leisure Preferences ACTIVITY : Leisure Education GOAL : Increase knowledge of leisure activities, educate on preferences/ barriers DURATION : 60 minutes RESPONSE : No participation.
--- NOTE | 2016-12-28 14:29 | NUR ---
Nursing Note: Pt became increasingly agitated and exit-seeking on the patio. It was necessary to place her in the west hallway with the doors closed while monitoring from nursing station. Pt began scraping at window and pushing chair in attempts to stand when staff entered hallway to remove chair pt began hitting and pulling on staff. PRN administered.
--- NOTE | 2016-12-28 14:41 | NUR ---
Nursing Note: Pt continues to repetitively "sing/rhyme" in a loud tone. Pt also yelling phrases such as, "you're all gonna be ," "you're all gonna " and "you're killing me" over and over as she smears her saliva on the window of the nurses station.
--- NOTE | 2016-12-28 14:56 | NUR ---
Behavior Intervention Response and Plan: BIRP Note: Behavior: Assumed Care of patient, patient located in Day Room at shift change. Patient exhibited the following behavior Compliant, Disorganized, Withdrawn. Brief assessment on rounds of vital signs, medication needs, lab studies, and pain. Treatment plan problems Vascular Dementia W/ BD and Fall risk. Intervention: Patient assessed and the following interventions initiated safety checks 15 Minute Checks Head to toe Assessment , Medications , Oral Hydration. Response: After interactions and interventions patient responded in the following manner, Agitated , Irritable ,Disorganized. Continue to assess behaviors and condition will continue to monitor throughout the shift as needed. Patient educated on ADL's, and hand hygiene. Plan: Continue to monitor Master Treatment Plan for patient's progress toward short term goals of Medication Compliance, Decreased Aggression, group home goals to return to previous living setting vs placement. Continue to assess patient for changes in above assessment. Monitor for medication needs, pain, and safety concerns. Hourly rounding performed to ensure safe environment.
--- NOTE | 2016-12-28 15:18 | NUR ---
Nursing Note: Pt continues to be agitated, hitting bernabe and pulling trim off the bernabe. Dr. Menendez called for PRN.
[2016-12-28] MEDS ORDERED: LORazepam INTENSOL 2 MG/ML BOTTLE SL PRN (15:30)
[2016-12-28] MEDS: LORazepam INTENSOL 2 MG/ML BOTTLE SL PRN (15:46)
--- NOTE | 2016-12-28 15:50 | NUR ---
Nursing Note: Pt given PRN per doctor's order.
--- NOTE | 2016-12-28 15:55 | NUR ---
Nursing Note: Pt continues to be agitated. Plant Ops called to replace trim on wall removed by pt. Doctor paged.
--- NOTE | 2016-12-28 16:00 | NUR ---
Nursing Note: Pt continued to be agitated, pulling trim off the wall, striking out at staff with pieces of trim who were in the boyer to keep her from harming herself. Dr. Menendez was paged and order was received for pt to be placed in seclusion for her safety and for the safety of others. Clean Up Worker was present at the time and was the person who actually obtained the order from Dr. Menendez for the seclusion.
--- NOTE | 2016-12-28 16:24 | NUR ---
SHIRLEY met w/Pt's son, Coy during visiting hours. Coy opted to not visit Pt. as Pt. is currently agitated and Coy doesn't want to increase her agitation level by visiting her. SHIRLEY asked about placement options as Coy said upon admit he would entertain the idea of transitioning to an AL if PT. is unable to return home. Pt. does own a home, but Coy is not willing to sell the home to use for placement. Coy reports PT. has some income from social security and pension and he would be able to supply supplemental money to meet around $3000/month for placement. Coy stated he has already toured several ALs when Pt. was being dc from previous hospital admit and realized the placements can range up to $6000/month. SHIRLEY asked if Pt. would want to provide a list of AL's Coy would be interested in sending referral to once Pt. has shown improvement. Coy will provide SW w/that list during his next visit. Coy will call Nursing tomorrow before visiting to see if PT's mood has improved.
--- NOTE | 2016-12-28 16:40 | NUR ---
Nursing Note: Attempted to open door of seclusion room and pt began yelling and threatening staff again. Plant ops still working on the hallway trim at this time.
--- NOTE | 2016-12-28 17:10 | NUR ---
Nursing Note: Door to seclusion room opened. Pt quiet at this time; however, any attempts to enter the room results in a change in the pt's body language to that of more intense. Pt allowed to stay in the quiet room with door open until she is ready to exit on her own. Dr. Menendez aware. Water and toileting offered q 30 minutes but denied each time.
[2016-12-28] MEDS ORDERED: traZODone 100 MG TABLET. PO PRN (19:00)
[2016-12-28] MEDS: QUEtiapine 50 MG TABLET. PO SCH (19:41)
[2016-12-28] MEDS: traZODone 100 MG TABLET. PO SCH (19:41)
[2016-12-28] MEDS: MIRTAZAPINE 15 MG TABLET PO SCH (19:41)
[2016-12-28] MEDS: VALPROATE ACID 250 MG/5 ML ORAL SOLUTION PO SCH (19:47)
--- NOTE | 2016-12-28 19:50 | NUR ---
Nursing Note Patient has been combative and destructive during previous shift. Patient is currently anxious but cooperative. Patient anxiety is increasing at this time and patient is pacing in boyer and quiet room. Patient given PRN Trazodone per PRN order.
--- NOTE | 2016-12-28 20:07 | PDOC ---
Exam Anson Demential Exam: Anson Note: Please also refer to the separate dictated note~for this date of service dictated separately.~Patient seen individually. Discussed the patient with Nursing staff reviewed the chart.~Reviewed interim history and current functioning. Reviewed vital signs,~Labs/ Radiology~and current medications noted below. Continue current treatment with the changes noted in the dictated addendum note Assessment: Vital Signs: Vital Signs Date Time Temp Pulse Resp B/P (MAP) Pulse Ox O2 Delivery O2 Flow Rate FiO2 12/28/16 06:12 98.1 92 16 137/89 (105) 97 I&O Intake and Output 12/29/16 07:00 Intake Total 480 ml Balance 480 ml Intake Oral 480 ml Current Medications: Meds: Current Medications Nicotine (Nicoderm Cq 21mg) 1 patch DAILY TD Last administered on 12/28/16 09: 18; Start 12/24/16 at 09:00 Risperidone (RisperDAL) 1 mg BID PO Last administered on 12/24/16 09:07; Start 12/23/16 at 22:00; Stop 12/24/16 at 16:36; Status DC Acetaminophen (Tylenol) 650 mg PRN Q4HRS PRN PO PAIN / TEMP; Start 12/23/16 at 21:30 Aspirin (Children'S Aspirin) 81 mg DAILY PO Last administered on 12/28/16 09: 17; Start 12/24/16 at 09:00 Bisacodyl (Dulcolax Supp) 10 mg PRN DAILY PRN RC CONSTIPATION; Start 12/23/16 at 21:30 Docusate Sodium (Colace) 100 mg BID PO Last administered on 12/28/16 19:41; Start 12/24/16 at 09:00 Famotidine (Pepcid) 20 mg PRN BID PRN PO DYSPEPSIA; Start 12/23/16 at 21:30 Magnesium Hydroxide (Milk Of Magnesia) 2,400 mg PRN DAILY PRN PO CONSTIPATION; Start 12/23/16 at 21:30 Polyethylene Glycol (miraLAX) 17 gm DAILY PO Last administered on 12/28/16 09: 18; Start 12/24/16 at 09:00 Sennosides (Senna) 8.6 mg PRN BID PRN PO CONSTIPATION; Start 12/23/16 at 21:30 Atorvastatin Calcium (Lipitor) 40 mg DAILY PO Last administered on 12/28/16 09 :18; Start 12/24/16 at 09:00 Al Hydroxide/Mg Hydroxide (Mylanta Plus Xs) 15 ml PRN AFTMEALHC PRN PO DYSPEPSIA; Start 12/23/16 at 21:30 Multi-Ingredient Ointment (Analgesic [place]) 1 josiane PRN QID PRN TP MUSCLE PAIN; Start 12/23/16 at 21:30 Olanzapine (ZyPREXA ZYDIS) 2.5 mg PRN Q2HR PRN PO ANXIETY / AGITATION Last administered on 12/28/16 15:39; Start 12/23/16 at 21:30 Risperidone (RisperDAL) 1 mg BID PO Last administered on 12/25/16 19:17; Start 12/24/16 at 21:00; Stop 12/25/16 at 21:44; Status DC Risperidone (RisperDAL) 1 mg HS PO ; Start 12/26/16 at 21:00; Stop 12/26/16 at 21:00; Status DC Risperidone (RisperDAL) 0.5 mg DAILY PO Last administered on 12/26/16 09:33; Start 12/26/16 at 09:00; Stop 12/26/16 at 18:34; Status DC Sertraline HCl (Zoloft) 50 mg DAILY PO Last administered on 12/28/16 09:18; Start 12/26/16 at 09:00 Vitamin D (Vitamin D3) 50,000 unit WEEKLY PO ; Start 12/27/16 at 09:00 Mirtazapine (Remeron) 7.5 mg QHS PO Last administered on 12/26/16 21:14; Start 12/26/16 at 21:00; Stop 12/27/16 at 18:37; Status DC Quetiapine Fumarate (SEROquel) 12.5 mg BID92 PO Last administered on 12/28/16 14:07; Start 12/27/16 at 09:00; Stop 12/28/16 at 18:51; Status DC Quetiapine Fumarate (SEROquel) 25 mg HS PO Last administered on 12/26/16 21:13 ; Start 12/26/16 at 21:00; Stop 12/27/16 at 18:37; Status DC Mirtazapine (Remeron) 15 mg QHS PO Last administered on 12/28/16 19:41; Start 12/27/16 at 21:00 Quetiapine Fumarate (SEROquel) 50 mg HS PO Last administered on 12/27/16 19:36 ; Start 12/27/16 at 21:00; Stop 12/28/16 at 18:51; Status DC Trazodone HCl (Desyrel) 50 mg QHS PO Last administered on 12/27/16 19:36; Start 12/27/16 at 21:00; Stop 12/28/16 at 18:53; Status DC Trazodone HCl (Desyrel) 50 mg PRN DAILY PRN PO INSOMNIA, MAY REPEAT IN 1HR; Start 12/27/16 at 18:45 Trazodone HCl (Desyrel) 50 mg PRN QHS PRN PO INSOMNIA, MAY REPEAT X1; Start at 13:15; Stop 12/28/16 at 18:53; Status DC Lorazepam (Ativan Intensol) 2 mg PRN Q2HR PRN SL ANXIETY / AGITATION; Start at 15:30; Stop 12/28/16 at 15:37; Status DC Lorazepam (Ativan Intensol) 0.5 mg PRN Q2HR PRN SL ANXIETY / AGITATION Last administered on 12/28/16 15:46; Start 12/28/16 at 15:45 Quetiapine Fumarate (SEROquel) 75 mg HS PO Last administered on 12/28/16 19:41 ; Start 12/28/16 at 21:00 Quetiapine Fumarate (SEROquel) 50 mg BID92 PO ; Start 12/29/16 at 09:00 Trazodone HCl (Desyrel) 100 mg HS PO Last administered on 12/28/16 19:41; Start 12/28/16 at 21:00 Trazodone HCl (Desyrel) 100 mg PRN QHS PRN PO INSOMNIA MAY REPEAT X1 Last administered on 12/28/16 19:48; Start 12/28/16 at 19:00 Valproic Acid (Depakene) 250 mg BID PO Last administered on 12/28/16 19:47; Start 12/28/16 at 21:00 Active Scripts Active Reported Haldol (Haloperidol Lactate) 5 Mg/1 Ml Ampul 2 Mg SUBCUT PRN Q4HRS PRN Famotidine 20 Mg Tablet 20 Mg PO PRN BID PRN Senna (Sennosides) 8.6 Mg Tablet 8.6 Mg PO PRN BID PRN Milk Of Magnesia (Magnesium Hydroxide) 400 Mg/5 Ml Oral.susp 2,400 Mg PO PRN DAILY PRN Dulcolax (Bisacodyl) 10 Mg Supp.rect 10 Mg RC PRN DAILY Tylenol (Acetaminophen) 325 Mg Tablet 650 Mg PO Q4HRS PRN Risperidone 1 Mg/1 Ml Disp.syrin 1 Mg PO BID Polyethylene Glycol 3350 255 Gm Powder 17 Gm PO DAILY Docusate Sodium 100 Mg Capsule 100 Mg PO BID Atorvastatin Calcium 40 Mg Tablet 40 Mg PO DAILY Aspirin 81 Mg Tab.chew 81 Mg PO DAILY Diagnosis: Problems: (1) Anxiety disorder (2) Dementia, vascular, with delusions (3) Dementia, vascular, with depression (4) Impulse control disorder RELL PUENTE MD Dec 28, 2016 20:07
--- NOTE | 2016-12-28 23:23 | NUR ---
Behavior Intervention Response and Plan: BIRP Note: Behavior: Assumed Care of patient, patient located in Quiet Room at shift change. Patient exhibited the following behavior Restless, Disorganized, Irritable. Brief assessment on rounds of vital signs, medication needs, lab studies, and pain. Treatment plan problems Dementia W/BD, Medicaiton Non-Compliance, and Fall risk. Intervention: Patient assessed and the following interventions initiated safety checks 15 Minute Checks Cognitive Assessment , Medications , Oral Hydration. Response: After interactions and interventions patient responded in the following manner, Calm , Calm ,Disorganized. Continue to assess behaviors and condition will continue to monitor throughout the shift as needed. Patient educated on ADL's, and hand hygiene. Plan: Continue to monitor Master Treatment Plan for patient's progress toward short term goals of Decreased Agitation, Medication Compliance, custodial goals to return to previous living setting vs placement. Continue to assess patient for changes in above assessment. Monitor for medication needs, pain, and safety concerns. Hourly rounding performed to ensure safe environment.
--- NOTE | 2016-12-29 01:02 | PN ---
DATE: 12/27/2016 This is a late entry 12/27/2016, covers the elements not covered in my initial note. I met with the patient the evening of 12/27/2016. The patient did not sleep at all previous evening, had to be placed on the West hallway, to remove her from the rest of the patient's because she was overstimulated, agitated, refusing her medications, banging on the window, was hitting and kicking the doors, paranoid, psychotic, hitting the nursing staff, biting staff members, suspicious, refused assessments and medications at night. REVIEW OF SYSTEMS: No CV, , pulmonary, eye, ENT system symptoms on review. Reliability poor. MENTAL STATUS EXAM: Oriented to herself. Insight, judgment, recent and remote memory, attention, concentration, fund of knowledge poor, consistent with her diagnosis, quite labile in her mood as I met with her individually in the [facility]. LABORATORY DATA: Reviewed. IMPRESSION: Major neurocognitive disorder, vascular with depression, delusion, behavioral disturbance; anxiety disorder, unspecified; impulse control disorder, unspecified. PLAN: Increase Seroquel from 25 mg at bedtime to 50 mg at bedtime. She received Zyprexa p.r.n. 1 a.m. and 9 a.m. Continue Zoloft along with Remeron, which we will increase from 7.5 mg at bedtime to 15 mg at bedtime and we will also add trazodone starting 8:30 at 50 mg at bedtime scheduled, may repeat x 1 p.r.n. insomnia. I reviewed drug interactions risk/benefit ratio favors no further change at this time. MAN Ktean PUENTE MD DR: BRIONNA/gui JOB#: [id number] / [id number]
[2016-12-29 06:18] VITALS: BP 108/63
[2016-12-29] MEDS: SERTRALINE 25 MG TABLET. PO SCH (08:48)
[2016-12-29] MEDS: DOCUSATE SODIUM 100 MG CAPSULE PO SCH ×2 (08:48→21:24)
[2016-12-29] MEDS: ATORVASTATIN CALCIUM 20 MG TABLET PO SCH (08:48)
[2016-12-29] MEDS: NICOTINE 21MG PATCH. TD SCH (08:49)
[2016-12-29] MEDS: VALPROATE ACID 250 MG/5 ML ORAL SOLUTION PO SCH ×2 (08:49→21:24)
[2016-12-29] MEDS: ASPIRIN 81 MG TAB.CHEW PO SCH (08:49)
[2016-12-29] MEDS: POLYETHYLENE GLYCOL 3350 17 GM PACKET. PO SCH (08:49)
[2016-12-29] MEDS: QUEtiapine 50 MG TABLET. PO SCH ×3 (08:50→21:24)
--- NOTE | 2016-12-29 09:20 | NUR ---
Behavior Intervention Response and Plan: BIRP Note: Behavior: Assumed Care of patient, patient located in Patient Room at shift change. Patient exhibited the following behavior Wandering, Restless, Disorganized. Brief assessment on rounds of vital signs, medication needs, lab studies, and pain. Treatment plan problems 1 & 2. Intervention: Patient assessed and the following interventions initiated safety checks 15 Minute Checks Cognitive Assessment , Head to toe Assessment , Medications. Response: After interactions and interventions patient responded in the following manner, Calm , Appropriate ,Compliant. Continue to assess behaviors and condition will continue to monitor throughout the shift as needed. Patient educated on ADL's, and hand hygiene. Plan: Continue to monitor Master Treatment Plan for patient's progress toward short term goals of Decreased Agitation, Decreased Aggression, terminal gauger goals to return to previous living setting vs placement. Continue to assess patient for changes in above assessment. Monitor for medication needs, pain, and safety concerns. Hourly rounding performed to ensure safe environment.
--- NOTE | 2016-12-29 09:30 | NUR ---
THERAPEUTIC RECREATION GROUP NOTE TITLE :Social Session: Bingo and Painting! -REPORTED AND LED by CNAs ACTIVITY : Activities and Games GOAL : Increase social interaction, fine motor skills. Maintain or improve mental functioning. Decrease restlessness DURATION : Available for 120 minutes RESPONSE : No participation.
--- NOTE | 2016-12-29 11:30 | NUR ---
THERAPEUTIC RECREATION GROUP NOTE TITLE :Movement to Music: Strength ACTIVITY : Movement/ Exercise GOAL : Increase morale, attention, flexibility. Decrease stress/anxiety. DURATION : 30 Minutes RESPONSE : Full participation. Pt. was alert and engaged the entire time. She needed occasional prompting but followed along, often altering the moves slightly. She was calm and pleasant the entire time.
[2016-12-29 12:26] LABS: BILIRUBIN,URINE NEG (NEG); CLARITY,URINE HAZY; COLOR,URINE AMBER; GLUCOSE,URINE NEG (NEG)
[2016-12-29 12:27] LABS: AMORPHOUS SEDIMENT,UR PRESENT /HPF; BACTERIA,URINE FEW /HPF (0-FEW); NITRITE,URINE NEG (NEG); RBC,URINE RARE /HPF (0-2); SQUAMOUS EPITHELIAL CELL,UR FEW /LPF; UROBILINOGEN,URINE 1 mg/dL (0.2 mg/dL); WBC,URINE 0 /HPF (0-4)
--- NOTE | 2016-12-29 14:00 | NUR ---
Patient in bed, eyes closed, NAD, appears to be resting comfortably. Woke patient for meds, she was calm and compliant; denied any needs or concerns at this time. Will continue to monitor.
--- NOTE | 2016-12-29 14:15 | NUR ---
THERAPEUTIC RECREATION GROUP NOTE TITLE :Karaoke ACTIVITY : Activities and Games GOAL : Increase social interaction, fine motor skills. Maintain or improve mental functioning. Decrease restlessness DURATION : 75 minutes RESPONSE : No participation.
--- NOTE | 2016-12-29 15:45 | NUR ---
SW met w/Pt's son, Coy, prior to visiting hours to discuss treatment team information from the am. SW reported to Coy his contact information was left for Dr. Menendez to follow up w/him in the evening to further explain medications and timeline of targeted improvement. SW will review notes from the weekend and possible progress before sending out referral information to [facility] facilities.
[2016-12-29 16:22] VITALS: BP 109/68
--- NOTE | 2016-12-29 20:00 | NUR ---
Behavior Intervention Response and Plan: BIRP Note: Behavior: Assumed Care of patient, patient located in Patient Room at shift change. Patient exhibited the following behavior Disorganized, Drowsy, Interactive. Brief assessment on rounds of vital signs, medication needs, lab studies, and pain. Treatment plan problems . Intervention: Patient assessed and the following interventions initiated safety checks 15 Minute Checks Cognitive Assessment , Head to toe Assessment , Medications. Response: After interactions and interventions patient responded in the following manner, Drowsy , Compliant ,Interactive. Continue to assess behaviors and condition will continue to monitor throughout the shift as needed. Patient educated on ADL's, and hand hygiene. Plan: Continue to monitor Master Treatment Plan for patient's progress toward short term goals of Decreased Agitation, Decreased Anxiety, terminal gauger goals to return to previous living setting vs placement. Continue to assess patient for changes in above assessment. Monitor for medication needs, pain, and safety concerns. Hourly rounding performed to ensure safe environment.
--- NOTE | 2016-12-29 20:05 | PDOC ---
Exam Anson Demential Exam: Anson Note: Please also refer to the separate dictated note~for this date of service dictated separately.~Patient seen individually. Discussed the patient with Nursing staff reviewed the chart.~Reviewed interim history and current functioning. Reviewed vital signs,~Labs/ Radiology~and current medications noted below. Continue current treatment with the changes noted in the dictated addendum note Assessment: Vital Signs: Vital Signs Date Time Temp Pulse Resp B/P (MAP) Pulse Ox O2 Delivery O2 Flow Rate FiO2 12/29/16 16:22 97.7 97 20 109/68 (82) 96 I&O Intake and Output 12/30/16 06:59 Intake Total 1200 ml Balance 1200 ml Intake Oral 1200 ml # Bowel Movements 1 Labs: Laboratory Tests Test 12/29/16 12:05 Urine Collection Type Unknown Urine Color Karin Urine Clarity Hazy Urine pH 6.0 Urine Specific [place] 1.025 Urine Protein 100 mg/dl (NEG-TRACE) Urine Glucose (UA) Neg mg/dL (NEG) Urine Ketones (Stick) 15 mg/dL (NEG) Urine Blood Neg (NEG) Urine Nitrite Neg (NEG) Urine Bilirubin Neg (NEG) Urine Urobilinogen Dipstick 1 mg/dL (0.2 mg/dL) Urine Leukocyte Esterase Neg (NEG) Urine RBC Rare /HPF (0-2) Urine WBC 0 /HPF (0-4) Urine Squamous Epithelial Cells Few /LPF Urine Amorphous Sediment Present /HPF Urine Bacteria Few /HPF (0-FEW) Current Medications: Meds: Current Medications Nicotine (Nicoderm Cq 21mg) 1 patch DAILY TD Last administered on 12/29/16 08: 49; Start 12/24/16 at 09:00 Risperidone (RisperDAL) 1 mg BID PO Last administered on 12/24/16 09:07; Start 12/23/16 at 22:00; Stop 12/24/16 at 16:36; Status DC Acetaminophen (Tylenol) 650 mg PRN Q4HRS PRN PO PAIN / TEMP; Start 12/23/16 at 21:30 Aspirin (Children'S Aspirin) 81 mg DAILY PO Last administered on 12/29/16 08: 49; Start 12/24/16 at 09:00 Bisacodyl (Dulcolax Supp) 10 mg PRN DAILY PRN RC CONSTIPATION; Start 12/23/16 at 21:30 Docusate Sodium (Colace) 100 mg BID PO Last administered on 12/29/16 08:48; Start 12/24/16 at 09:00 Famotidine (Pepcid) 20 mg PRN BID PRN PO DYSPEPSIA; Start 12/23/16 at 21:30 Magnesium Hydroxide (Milk Of Magnesia) 2,400 mg PRN DAILY PRN PO CONSTIPATION; Start 12/23/16 at 21:30 Polyethylene Glycol (miraLAX) 17 gm DAILY PO Last administered on 12/29/16 08: 49; Start 12/24/16 at 09:00 Sennosides (Senna) 8.6 mg PRN BID PRN PO CONSTIPATION; Start 12/23/16 at 21:30 Atorvastatin Calcium (Lipitor) 40 mg DAILY PO Last administered on 12/29/16 08 :48; Start 12/24/16 at 09:00 Al Hydroxide/Mg Hydroxide (Mylanta Plus Xs) 15 ml PRN AFTMEALHC PRN PO DYSPEPSIA; Start 12/23/16 at 21:30 Multi-Ingredient Ointment (Analgesic [place]) 1 josiane PRN QID PRN TP MUSCLE PAIN; Start 12/23/16 at 21:30 Olanzapine (ZyPREXA ZYDIS) 2.5 mg PRN Q2HR PRN PO ANXIETY / AGITATION Last administered on 12/28/16 15:39; Start 12/23/16 at 21:30 Risperidone (RisperDAL) 1 mg BID PO Last administered on 12/25/16 19:17; Start 12/24/16 at 21:00; Stop 12/25/16 at 21:44; Status DC Risperidone (RisperDAL) 1 mg HS PO ; Start 12/26/16 at 21:00; Stop 12/26/16 at 21:00; Status DC Risperidone (RisperDAL) 0.5 mg DAILY PO Last administered on 12/26/16 09:33; Start 12/26/16 at 09:00; Stop 12/26/16 at 18:34; Status DC Sertraline HCl (Zoloft) 50 mg DAILY PO Last administered on 12/29/16 08:48; Start 12/26/16 at 09:00 Vitamin D (Vitamin D3) 50,000 unit WEEKLY PO ; Start 12/27/16 at 09:00 Mirtazapine (Remeron) 7.5 mg QHS PO Last administered on 12/26/16 21:14; Start 12/26/16 at 21:00; Stop 12/27/16 at 18:37; Status DC Quetiapine Fumarate (SEROquel) 12.5 mg BID92 PO Last administered on 12/28/16 14:07; Start 12/27/16 at 09:00; Stop 12/28/16 at 18:51; Status DC Quetiapine Fumarate (SEROquel) 25 mg HS PO Last administered on 12/26/16 21:13 ; Start 12/26/16 at 21:00; Stop 12/27/16 at 18:37; Status DC Mirtazapine (Remeron) 15 mg QHS PO Last administered on 12/28/16 19:41; Start 12/27/16 at 21:00 Quetiapine Fumarate (SEROquel) 50 mg HS PO Last administered on 12/27/16 19:36 ; Start 12/27/16 at 21:00; Stop 12/28/16 at 18:51; Status DC Trazodone HCl (Desyrel) 50 mg QHS PO Last administered on 12/27/16 19:36; Start 12/27/16 at 21:00; Stop 12/28/16 at 18:53; Status DC Trazodone HCl (Desyrel) 50 mg PRN DAILY PRN PO INSOMNIA, MAY REPEAT IN 1HR; Start 12/27/16 at 18:45 Trazodone HCl (Desyrel) 50 mg PRN QHS PRN PO INSOMNIA, MAY REPEAT X1; Start at 13:15; Stop 12/28/16 at 18:53; Status DC Lorazepam (Ativan Intensol) 2 mg PRN Q2HR PRN SL ANXIETY / AGITATION; Start at 15:30; Stop 12/28/16 at 15:37; Status DC Lorazepam (Ativan Intensol) 0.5 mg PRN Q2HR PRN SL ANXIETY / AGITATION Last administered on 12/28/16 15:46; Start 12/28/16 at 15:45 Quetiapine Fumarate (SEROquel) 75 mg HS PO Last administered on 12/28/16 19:41 ; Start 12/28/16 at 21:00 Quetiapine Fumarate (SEROquel) 50 mg BID92 PO Last administered on 12/29/16 13 :52; Start 12/29/16 at 09:00 Trazodone HCl (Desyrel) 100 mg HS PO Last administered on 12/28/16 19:41; Start 12/28/16 at 21:00 Trazodone HCl (Desyrel) 100 mg PRN QHS PRN PO INSOMNIA MAY REPEAT X1 Last administered on 12/28/16 19:48; Start 12/28/16 at 19:00 Valproic Acid (Depakene) 250 mg BID PO Last administered on 12/29/16 08:49; Start 12/28/16 at 21:00 Active Scripts Active Reported Haldol (Haloperidol Lactate) 5 Mg/1 Ml Ampul 2 Mg SUBCUT PRN Q4HRS PRN Famotidine 20 Mg Tablet 20 Mg PO PRN BID PRN Senna (Sennosides) 8.6 Mg Tablet 8.6 Mg PO PRN BID PRN Milk Of Magnesia (Magnesium Hydroxide) 400 Mg/5 Ml Oral.susp 2,400 Mg PO PRN DAILY PRN Dulcolax (Bisacodyl) 10 Mg Supp.rect 10 Mg RC PRN DAILY Tylenol (Acetaminophen) 325 Mg Tablet 650 Mg PO Q4HRS PRN Risperidone 1 Mg/1 Ml Disp.syrin 1 Mg PO BID Polyethylene Glycol 3350 255 Gm Powder 17 Gm PO DAILY Docusate Sodium 100 Mg Capsule 100 Mg PO BID Atorvastatin Calcium 40 Mg Tablet 40 Mg PO DAILY Aspirin 81 Mg Tab.chew 81 Mg PO DAILY Diagnosis: Problems: (1) Anxiety disorder (2) Dementia, vascular, with delusions (3) Dementia, vascular, with depression (4) Impulse control disorder RELL PUENTE MD Dec 29, 2016 20:05
[2016-12-29] MEDS: traZODone 100 MG TABLET. PO SCH (21:24)
[2016-12-30] MEDS: MIRTAZAPINE 15 MG TABLET PO SCH ×2 (01:58→20:29)
--- NOTE | 2016-12-30 04:45 | PN ---
DATE: 12/28/2016 This late entry 12/28/2016 covers elements not covered in my initial note. I have been called several times during the day by nursing staff as the patient has been increasingly labile and agitated. She has done significant amount of damage to the property around the unit, had to be secluded for a brief period of time behaviors were totally dangerous. She had pulled out big pieces of the wall board and was destructive and threatening to staff. She was combative exit-seeking, received Zyprexa twice, slept 4-1/4 hours the previous evening. UA is awaited. REVIEW OF SYSTEMS: No CV, , pulmonary, eye, ENT system symptoms on review. Reliability poor. MENTAL STATUS EXAM: Oriented to herself. Insight, judgment, recent and remote memory, attention, concentration, fund of knowledge poor, consistent with her diagnosis mentioned in my initial note. PLAN: Continue current psychotropics. Check UA, start Depakote 250 mg twice a day. CBC, CMP, valproic acid level in 3 days. Increase trazodone from 50 at bedtime to 100 mg at bedtime, may repeat x 1 for insomnia. Seroquel is 12.5 mg b.i.d. and 50 at bedtime, we will increase it to 50 mg twice a day and 75 mg at bedtime. Make further adjustments as clinically indicated. Reviewed drug interactions, risk/benefit ratio favors no further change at this time. I spent a fair amount of time reassessing the patient's psychotropics discussing with nursing staff repeatedly since the behaviors during the day on 12/28/2016 have been very disruptive and potentially dangerous. MAN Ketan PUENTE MD DR: BRIONNA/gui JOB#: [id number] / [id number]
[2016-12-30 05:36] VITALS: BP 107/64
[2016-12-30] MEDS: NICOTINE 21MG PATCH. TD SCH (09:13)
[2016-12-30] MEDS: QUEtiapine 50 MG TABLET. PO SCH ×3 (09:13→20:28)
[2016-12-30] MEDS: SERTRALINE 25 MG TABLET. PO SCH (09:13)
[2016-12-30] MEDS: POLYETHYLENE GLYCOL 3350 17 GM PACKET. PO SCH (09:13)
[2016-12-30] MEDS: VALPROATE ACID 250 MG/5 ML ORAL SOLUTION PO SCH ×2 (09:14→20:28)
[2016-12-30] MEDS: ATORVASTATIN CALCIUM 20 MG TABLET PO SCH (09:15)
[2016-12-30] MEDS: ASPIRIN 81 MG TAB.CHEW PO SCH (09:15)
[2016-12-30] MEDS: DOCUSATE SODIUM 100 MG CAPSULE PO SCH ×2 (09:15→20:29)
--- NOTE | 2016-12-30 14:10 | NUR ---
Group Note [facility] Group Type: Outside Reminisce Start Time: 1:20 pm End Time: 2:00pm Problem: Psychotic Symptoms Purpose: Decrease Restlessness Level of Participation: High Behaviors or Symptoms Observed: Pt. very talkative, SW able to understand some words mixed w/word salad Interventions: Reminiscence Response: Full participation, although at times not able to clearly communicate. No attempts to elope over fence, redirected easily, assisted this SW w/carrying items back inside and offered to help another peer w/walking. Plan: continue to monitor
--- NOTE | 2016-12-30 14:28 | NUR ---
Behavior Intervention Response and Plan: BIRP Note: Behavior: Assumed Care of patient, patient located in Day Room at shift change. Patient exhibited the following behavior Disorganized, Non Compliant, Withdrawn. Brief assessment on rounds of vital signs, medication needs, lab studies, and pain. Treatment plan problems 1-2. Intervention: Patient assessed and the following interventions initiated safety checks 15 Minute Checks Cognitive Assessment , Head to toe Assessment , Medications. Response: After interactions and interventions patient responded in the following manner, Disorganized , Wandering ,Cooperative. Continue to assess behaviors and condition will continue to monitor throughout the shift as needed. Patient educated on ADL's, and hand hygiene. Plan: Continue to monitor Master Treatment Plan for patient's progress toward short term goals of Medication Compliance, Improved Mood, halfway goals to return to previous living setting vs placement. Continue to assess patient for changes in above assessment. Monitor for medication needs, pain, and safety concerns. Hourly rounding performed to ensure safe environment.
[2016-12-30 16:21] VITALS: BP 121/71
--- NOTE | 2016-12-30 19:54 | PDOC ---
Exam Anson Demential Exam: Anson Note: Please also refer to the separate dictated note~for this date of service dictated separately.~Patient seen individually. Discussed the patient with Nursing staff reviewed the chart.~Reviewed interim history and current functioning. Reviewed vital signs,~Labs/ Radiology~and current medications noted below. Continue current treatment with the changes noted in the dictated addendum note Assessment: Vital Signs: Vital Signs Date Time Temp Pulse Resp B/P (MAP) Pulse Ox O2 Delivery O2 Flow Rate FiO2 12/30/16 16:21 98.4 91 16 121/71 (88) 97 I&O Intake and Output 12/31/16 06:59 Intake Total 960 ml Balance 960 ml Intake Oral 960 ml Current Medications: Meds: Current Medications Nicotine (Nicoderm Cq 21mg) 1 patch DAILY TD Last administered on 12/30/16 09: 13; Start 12/24/16 at 09:00 Risperidone (RisperDAL) 1 mg BID PO Last administered on 12/24/16 09:07; Start 12/23/16 at 22:00; Stop 12/24/16 at 16:36; Status DC Acetaminophen (Tylenol) 650 mg PRN Q4HRS PRN PO PAIN / TEMP; Start 12/23/16 at 21:30 Aspirin (Children'S Aspirin) 81 mg DAILY PO Last administered on 12/30/16 09:15 ; Start 12/24/16 at 09:00 Bisacodyl (Dulcolax Supp) 10 mg PRN DAILY PRN RC CONSTIPATION; Start 12/23/16 at 21:30 Docusate Sodium (Colace) 100 mg BID PO Last administered on 12/30/16 09:15; Start 12/24/16 at 09:00 Famotidine (Pepcid) 20 mg PRN BID PRN PO DYSPEPSIA; Start 12/23/16 at 21:30 Magnesium Hydroxide (Milk Of Magnesia) 2,400 mg PRN DAILY PRN PO CONSTIPATION; Start 12/23/16 at 21:30 Polyethylene Glycol (miraLAX) 17 gm DAILY PO Last administered on 12/30/16 09: 13; Start 12/24/16 at 09:00 Sennosides (Senna) 8.6 mg PRN BID PRN PO CONSTIPATION; Start 12/23/16 at 21:30 Atorvastatin Calcium (Lipitor) 40 mg DAILY PO Last administered on 12/30/16 09: 15; Start 12/24/16 at 09:00 Al Hydroxide/Mg Hydroxide (Mylanta Plus Xs) 15 ml PRN AFTMEALHC PRN PO DYSPEPSIA; Start 12/23/16 at 21:30 Multi-Ingredient Ointment (Analgesic [place]) 1 josiane PRN QID PRN TP MUSCLE PAIN; Start 12/23/16 at 21:30 Olanzapine (ZyPREXA ZYDIS) 2.5 mg PRN Q2HR PRN PO ANXIETY / AGITATION Last administered on 12/28/16 15:39; Start 12/23/16 at 21:30 Risperidone (RisperDAL) 1 mg BID PO Last administered on 12/25/16 19:17; Start 12/24/16 at 21:00; Stop 12/25/16 at 21:44; Status DC Risperidone (RisperDAL) 1 mg HS PO ; Start 12/26/16 at 21:00; Stop 12/26/16 at 21:00; Status DC Risperidone (RisperDAL) 0.5 mg DAILY PO Last administered on 12/26/16 09:33; Start 12/26/16 at 09:00; Stop 12/26/16 at 18:34; Status DC Sertraline HCl (Zoloft) 50 mg DAILY PO Last administered on 12/30/16 09:13; Start 12/26/16 at 09:00 Vitamin D (Vitamin D3) 50,000 unit WEEKLY PO ; Start 12/27/16 at 09:00 Mirtazapine (Remeron) 7.5 mg QHS PO Last administered on 12/26/16 21:14; Start 12/26/16 at 21:00; Stop 12/27/16 at 18:37; Status DC Quetiapine Fumarate (SEROquel) 12.5 mg BID92 PO Last administered on 12/28/16 14:07; Start 12/27/16 at 09:00; Stop 12/28/16 at 18:51; Status DC Quetiapine Fumarate (SEROquel) 25 mg HS PO Last administered on 12/26/16 21:13 ; Start 12/26/16 at 21:00; Stop 12/27/16 at 18:37; Status DC Mirtazapine (Remeron) 15 mg QHS PO Last administered on 12/30/16 01:58; Start 12/27/16 at 21:00 Quetiapine Fumarate (SEROquel) 50 mg HS PO Last administered on 12/27/16 19:36 ; Start 12/27/16 at 21:00; Stop 12/28/16 at 18:51; Status DC Trazodone HCl (Desyrel) 50 mg QHS PO Last administered on 12/27/16 19:36; Start 12/27/16 at 21:00; Stop 12/28/16 at 18:53; Status DC Trazodone HCl (Desyrel) 50 mg PRN DAILY PRN PO INSOMNIA, MAY REPEAT IN 1HR; Start 12/27/16 at 18:45 Trazodone HCl (Desyrel) 50 mg PRN QHS PRN PO INSOMNIA, MAY REPEAT X1; Start at 13:15; Stop 12/28/16 at 18:53; Status DC Lorazepam (Ativan Intensol) 2 mg PRN Q2HR PRN SL ANXIETY / AGITATION; Start at 15:30; Stop 12/28/16 at 15:37; Status DC Lorazepam (Ativan Intensol) 0.5 mg PRN Q2HR PRN SL ANXIETY / AGITATION Last administered on 12/28/16 15:46; Start 12/28/16 at 15:45 Quetiapine Fumarate (SEROquel) 75 mg HS PO Last administered on 12/29/16 21:24 ; Start 12/28/16 at 21:00 Quetiapine Fumarate (SEROquel) 50 mg BID92 PO Last administered on 12/30/16 16: 46; Start 12/29/16 at 09:00 Trazodone HCl (Desyrel) 100 mg HS PO Last administered on 12/29/16 21:24; Start 12/28/16 at 21:00 Trazodone HCl (Desyrel) 100 mg PRN QHS PRN PO INSOMNIA MAY REPEAT X1 Last administered on 12/28/16 19:48; Start 12/28/16 at 19:00 Valproic Acid (Depakene) 250 mg BID PO Last administered on 12/30/16 09:14; Start 12/28/16 at 21:00 Active Scripts Active Reported Haldol (Haloperidol Lactate) 5 Mg/1 Ml Ampul 2 Mg SUBCUT PRN Q4HRS PRN Famotidine 20 Mg Tablet 20 Mg PO PRN BID PRN Senna (Sennosides) 8.6 Mg Tablet 8.6 Mg PO PRN BID PRN Milk Of Magnesia (Magnesium Hydroxide) 400 Mg/5 Ml Oral.susp 2,400 Mg PO PRN DAILY PRN Dulcolax (Bisacodyl) 10 Mg Supp.rect 10 Mg RC PRN DAILY Tylenol (Acetaminophen) 325 Mg Tablet 650 Mg PO Q4HRS PRN Risperidone 1 Mg/1 Ml Disp.syrin 1 Mg PO BID Polyethylene Glycol 3350 255 Gm Powder 17 Gm PO DAILY Docusate Sodium 100 Mg Capsule 100 Mg PO BID Atorvastatin Calcium 40 Mg Tablet 40 Mg PO DAILY Aspirin 81 Mg Tab.chew 81 Mg PO DAILY Diagnosis: Problems: (1) Anxiety disorder (2) Dementia, vascular, with delusions (3) Dementia, vascular, with depression (4) Impulse control disorder RELL PUENTE MD Dec 30, 2016 19:54
[2016-12-30] MEDS: traZODone 100 MG TABLET. PO SCH (20:29)
--- NOTE | 2016-12-30 21:00 | NUR ---
Behavior Intervention Response and Plan: BIRP Note: Behavior: Assumed Care of patient, patient located in Patient Room at shift change. Patient exhibited the following behavior Drowsy, Calm, Social. Brief assessment on rounds of vital signs, medication needs, lab studies, and pain. Treatment plan problems . Intervention: Patient assessed and the following interventions initiated safety checks 15 Minute Checks Cognitive Assessment , Head to toe Assessment , Medications. Response: After interactions and interventions patient responded in the following manner, Calm , Cooperative ,Compliant. Continue to assess behaviors and condition will continue to monitor throughout the shift as needed. Patient educated on ADL's, and hand hygiene. 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 Continue to assess patient for changes in above assessment. Monitor for medication needs, pain, and safety concerns. Hourly rounding performed to ensure safe environment.
[2016-12-31 05:53] VITALS: BP 161/89
[2016-12-31] MEDS: ASPIRIN 81 MG TAB.CHEW PO SCH (07:48)
[2016-12-31] MEDS: SERTRALINE 25 MG TABLET. PO SCH (07:49)
[2016-12-31] MEDS: ATORVASTATIN CALCIUM 20 MG TABLET PO SCH (07:49)
[2016-12-31] MEDS: VALPROATE ACID 250 MG/5 ML ORAL SOLUTION PO SCH ×2 (07:49→20:32)
[2016-12-31] MEDS: NICOTINE 21MG PATCH. TD SCH (07:49)
[2016-12-31] MEDS: DOCUSATE SODIUM 100 MG CAPSULE PO SCH ×2 (07:49→20:32)
[2016-12-31] MEDS: QUEtiapine 50 MG TABLET. PO SCH ×3 (07:49→20:32)
[2016-12-31] MEDS: POLYETHYLENE GLYCOL 3350 17 GM PACKET. PO SCH (07:50)
--- NOTE | 2016-12-31 08:37 | PN ---
DATE: 12/29/2016 PSYCHIATRIC PROGRESS NOTE This late entry of 12/29/2016 covers elements not covered in my initial note of 12/29/2016. SUBJECTIVE: The patient was staffed at treatment team meeting morning of 12/29/2016, seen individually evening of 12/29/2016. In the morning, the patient has been calm, compliant with medications, confused, and marked mood lability, agitation, aggression noted a couple of days previously has not resurfaced. She has remained in the milieu rather than having to be secluded like she did the previous day. I returned a call from the patient's son, Coy [phone] evening of 12/29/2016. Discussed the patient's diagnosis at length and gathered further history, discussed each of her psychotropics risk and benefit ratio, concerns about Seroquel and that we will attempt to taper it when she has been stable for a little bit, Coy was understanding and agreeable. REVIEW OF SYSTEMS: No eye, ENT, CV, , pulmonary, eye system symptoms on review. MENTAL STATUS EXAM: Oriented to herself. Insight, judgment, recent and remote memory, attention, concentration, fund of knowledge poor, consistent with her diagnosis as mentioned in my initial note. LABORATORY DATA: Reviewed. PLAN: Continue current psychotropics, Remeron has been increased as has the Seroquel, trazodone. We considered Depakote, but for now she is responding to her current regimen. Reviewed drug interactions. Risk/benefit ratio favors no further change at this time. RELL PUENTE MD DR: BRIONNA/gui JOB#: [id number] / [id number]
--- NOTE | 2016-12-31 09:20 | NUR ---
Behavior Intervention Response and Plan: BIRP Note: Behavior: Assumed Care of patient, patient located in Patient Room at shift change. Patient exhibited the following behavior Disorganized, Defensive, Restless. Brief assessment on rounds of vital signs, medication needs, lab studies, and pain. Treatment plan problems . Intervention: Patient assessed and the following interventions initiated safety checks 15 Minute Checks Head to toe Assessment , Cognitive Assessment , Medications. Response: After interactions and interventions patient responded in the following manner, Non Compliant with Meds , Withdrawn ,Irritable. Continue to assess behaviors and condition will continue to monitor throughout the shift as needed. Patient educated on ADL's, and hand hygiene. 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 Continue to assess patient for changes in above assessment. Monitor for medication needs, pain, and safety concerns. Hourly rounding performed to ensure safe environment.
[2016-12-31 16:21] VITALS: BP 108/67
[2016-12-31] MEDS: traZODone 100 MG TABLET. PO SCH (20:31)
[2016-12-31] MEDS: MIRTAZAPINE 15 MG TABLET PO SCH (20:32)
--- NOTE | 2016-12-31 23:27 | PDOC ---
Exam Anson Demential Exam: Anson Note: Please also refer to the separate dictated note~for this date of service dictated separately.~Patient seen individually. Discussed the patient with Nursing staff reviewed the chart.~Reviewed interim history and current functioning. Reviewed vital signs,~Labs/ Radiology~and current medications noted below. Continue current treatment with the changes noted in the dictated addendum note Assessment: Vital Signs: Vital Signs Date Time Temp Pulse Resp B/P (MAP) Pulse Ox O2 Delivery O2 Flow Rate FiO2 12/31/16 16:21 98.5 97 18 108/67 (81) 93 I&O Intake and Output 01/01/17 06:59 Intake Total 120 ml Balance 120 ml Intake Oral 120 ml Current Medications: Meds: Current Medications Nicotine (Nicoderm Cq 21mg) 1 patch DAILY TD Last administered on 12/31/16 07: 49; Start 12/24/16 at 09:00 Risperidone (RisperDAL) 1 mg BID PO Last administered on 12/24/16 09:07; Start 12/23/16 at 22:00; Stop 12/24/16 at 16:36; Status DC Acetaminophen (Tylenol) 650 mg PRN Q4HRS PRN PO PAIN / TEMP; Start 12/23/16 at 21:30 Aspirin (Children'S Aspirin) 81 mg DAILY PO Last administered on 12/31/16 07:48 ; Start 12/24/16 at 09:00 Bisacodyl (Dulcolax Supp) 10 mg PRN DAILY PRN RC CONSTIPATION; Start 12/23/16 at 21:30 Docusate Sodium (Colace) 100 mg BID PO Last administered on 12/31/16 20:32; Start 12/24/16 at 09:00 Famotidine (Pepcid) 20 mg PRN BID PRN PO DYSPEPSIA Last administered on 20:30; Start 12/23/16 at 21:30 Magnesium Hydroxide (Milk Of Magnesia) 2,400 mg PRN DAILY PRN PO CONSTIPATION; Start 12/23/16 at 21:30 Polyethylene Glycol (miraLAX) 17 gm DAILY PO Last administered on 12/31/16 07: 50; Start 12/24/16 at 09:00 Sennosides (Senna) 8.6 mg PRN BID PRN PO CONSTIPATION; Start 12/23/16 at 21:30 Atorvastatin Calcium (Lipitor) 40 mg DAILY PO Last administered on 12/31/16 07: 49; Start 12/24/16 at 09:00 Al Hydroxide/Mg Hydroxide (Mylanta Plus Xs) 15 ml PRN AFTMEALHC PRN PO DYSPEPSIA; Start 12/23/16 at 21:30 Multi-Ingredient Ointment (Analgesic [place]) 1 josiane PRN QID PRN TP MUSCLE PAIN; Start 12/23/16 at 21:30 Olanzapine (ZyPREXA ZYDIS) 2.5 mg PRN Q2HR PRN PO ANXIETY / AGITATION Last administered on 12/28/16 15:39; Start 12/23/16 at 21:30 Risperidone (RisperDAL) 1 mg BID PO Last administered on 12/25/16 19:17; Start 12/24/16 at 21:00; Stop 12/25/16 at 21:44; Status DC Risperidone (RisperDAL) 1 mg HS PO ; Start 12/26/16 at 21:00; Stop 12/26/16 at 21:00; Status DC Risperidone (RisperDAL) 0.5 mg DAILY PO Last administered on 12/26/16 09:33; Start 12/26/16 at 09:00; Stop 12/26/16 at 18:34; Status DC Sertraline HCl (Zoloft) 50 mg DAILY PO Last administered on 12/31/16 07:49; Start 12/26/16 at 09:00 Vitamin D (Vitamin D3) 50,000 unit WEEKLY PO ; Start 12/27/16 at 09:00 Mirtazapine (Remeron) 7.5 mg QHS PO Last administered on 12/26/16 21:14; Start 12/26/16 at 21:00; Stop 12/27/16 at 18:37; Status DC Quetiapine Fumarate (SEROquel) 12.5 mg BID92 PO Last administered on 12/28/16 14:07; Start 12/27/16 at 09:00; Stop 12/28/16 at 18:51; Status DC Quetiapine Fumarate (SEROquel) 25 mg HS PO Last administered on 12/26/16 21:13 ; Start 12/26/16 at 21:00; Stop 12/27/16 at 18:37; Status DC Mirtazapine (Remeron) 15 mg QHS PO Last administered on 12/31/16 20:32; Start 12/27/16 at 21:00 Quetiapine Fumarate (SEROquel) 50 mg HS PO Last administered on 12/27/16 19:36 ; Start 12/27/16 at 21:00; Stop 12/28/16 at 18:51; Status DC Trazodone HCl (Desyrel) 50 mg QHS PO Last administered on 12/27/16 19:36; Start 12/27/16 at 21:00; Stop 12/28/16 at 18:53; Status DC Trazodone HCl (Desyrel) 50 mg PRN DAILY PRN PO INSOMNIA, MAY REPEAT IN 1HR; Start 12/27/16 at 18:45 Trazodone HCl (Desyrel) 50 mg PRN QHS PRN PO INSOMNIA, MAY REPEAT X1; Start at 13:15; Stop 12/28/16 at 18:53; Status DC Lorazepam (Ativan Intensol) 2 mg PRN Q2HR PRN SL ANXIETY / AGITATION; Start at 15:30; Stop 12/28/16 at 15:37; Status DC Lorazepam (Ativan Intensol) 0.5 mg PRN Q2HR PRN SL ANXIETY / AGITATION Last administered on 12/28/16 15:46; Start 12/28/16 at 15:45 Quetiapine Fumarate (SEROquel) 75 mg HS PO Last administered on 12/31/16 20:32 ; Start 12/28/16 at 21:00 Quetiapine Fumarate (SEROquel) 50 mg BID92 PO Last administered on 12/31/16 07: 49; Start 12/29/16 at 09:00 Trazodone HCl (Desyrel) 100 mg HS PO Last administered on 12/31/16 20:31; Start 12/28/16 at 21:00 Trazodone HCl (Desyrel) 100 mg PRN QHS PRN PO INSOMNIA MAY REPEAT X1 Last administered on 12/28/16 19:48; Start 12/28/16 at 19:00 Valproic Acid (Depakene) 250 mg BID PO Last administered on 12/31/16 20:32; Start 12/28/16 at 21:00 Active Scripts Active Reported Haldol (Haloperidol Lactate) 5 Mg/1 Ml Ampul 2 Mg SUBCUT PRN Q4HRS PRN Famotidine 20 Mg Tablet 20 Mg PO PRN BID PRN Senna (Sennosides) 8.6 Mg Tablet 8.6 Mg PO PRN BID PRN Milk Of Magnesia (Magnesium Hydroxide) 400 Mg/5 Ml Oral.susp 2,400 Mg PO PRN DAILY PRN Dulcolax (Bisacodyl) 10 Mg Supp.rect 10 Mg RC PRN DAILY Tylenol (Acetaminophen) 325 Mg Tablet 650 Mg PO Q4HRS PRN Risperidone 1 Mg/1 Ml Disp.syrin 1 Mg PO BID Polyethylene Glycol 3350 255 Gm Powder 17 Gm PO DAILY Docusate Sodium 100 Mg Capsule 100 Mg PO BID Atorvastatin Calcium 40 Mg Tablet 40 Mg PO DAILY Aspirin 81 Mg Tab.chew 81 Mg PO DAILY Diagnosis: Problems: (1) Anxiety disorder (2) Dementia, vascular, with delusions (3) Dementia, vascular, with depression (4) Impulse control disorder RELL PUENTE MD Dec 31, 2016 23:27
--- NOTE | 2017-01-01 04:03 | PN ---
DATE: 12/30/2016 PSYCHIATRIC PROGRESS NOTE This is a late entry date of service 12/30/2016 covers elements not covered in my initial note. SUBJECTIVE: I met with the patient evening of 12/30/2016. Overall, the patient has been doing better. She has not been agitated, aggressive, not ripping on balls. Needs to be coaxed to take her medications, less paranoid, psychotic. REVIEW OF SYSTEMS: No CV, , pulmonary, eye, ENT system symptoms on review. Reliability poor. MENTAL STATUS EXAM: Oriented to herself. Insight, judgment, recent and remote memory, attention, concentration, fund of knowledge poor, consistent with her diagnosis as mentioned in my initial note. LABORATORY DATA: Reviewed. PLAN: Continue current psychotropics. Consider reducing Seroquel in due course. Reviewed drug interactions risk/benefit ratio favors no further change as of now. MAN Ketan PUENTE MD DR: BRIONNA/gui JOB#: [id number] / [id number]
[2017-01-01 06:02] VITALS: BP 135/69
[2017-01-01 07:59] LABS: ALBUMIN 3.2 g/dL (3.4-5.0); ALBUMIN/GLOBULIN RATIO 0.9 (1.0-1.7); ALK PHOS 81 U/L (46-116); ALT (SGPT) 17 U/L (14-59); ANION GAP 5 (6-14); AST (SGOT) 12 U/L (15-37); BLOOD UREA NITROGEN 9 mg/dL (7-20); BUN/CREATININE RATIO 11 (6-20); CALCIUM 8.9 mg/dL (8.5-10.1); CARBON DIOXIDE 33 mmol/L (21-32); CHLORIDE 107 mmol/L (98-107); CREATININE 0.8 mg/dL (0.6-1.0); GFR 71.1; GLUCOSE 92 mg/dL (70-99); POTASSIUM 3.8 mmol/L (3.5-5.1); SODIUM 145 mmol/L (136-145); TOTAL BILIRUBIN 0.7 mg/dL (0.2-1.0); TOTAL PROTEIN 6.7 g/dL (6.4-8.2)
[2017-01-01 08:01] LABS: VAL ACID 70 mcg/mL (50-100)
[2017-01-01 08:13] LABS: BASO % 1 % (0-3); EOS # 0.1 x10^3/uL (0.0-0.7); EOS % 3 % (0-3); HEMATOCRIT 42.3 % (36.0-47.0); LYMPH # 1.6 x10^3/uL (1.0-4.8); LYMPH % 39 % (24-48); MEAN CORPUSCULAR HEMOGLOBIN 31 pg (25-35); MEAN CORPUSCULAR HGB CONC 33 g/dL (31-37); MEAN CORPUSCULAR VOLUME 94 fL (79-100); MONO # 0.4 x10^3/uL (0.0-1.1); MONO % 9 % (0-9); NEUT # 2.1 x10^3uL (1.8-7.7); NEUT % 50 % (31-73); PLATELET COUNT 220 x10^3/uL (140-400); RED BLOOD COUNT 4.51 x10^6/uL (3.50-5.40); RED CELL DISTRIBUTION WIDTH 12.9 % (11.5-14.5); WHITE BLOOD COUNT 4.3 x10^3/uL (4.0-11.0)
[2017-01-01] MEDS: ATORVASTATIN CALCIUM 20 MG TABLET PO SCH (09:11)
[2017-01-01] MEDS: ASPIRIN 81 MG TAB.CHEW PO SCH (09:11)
[2017-01-01] MEDS: QUEtiapine 50 MG TABLET. PO SCH ×3 (09:11→19:52)
[2017-01-01] MEDS: SERTRALINE 25 MG TABLET. PO SCH (09:11)
[2017-01-01] MEDS: DOCUSATE SODIUM 100 MG CAPSULE PO SCH ×2 (09:11→19:53)
[2017-01-01] MEDS: NICOTINE 21MG PATCH. TD SCH (09:12)
[2017-01-01] MEDS: POLYETHYLENE GLYCOL 3350 17 GM PACKET. PO SCH (09:12)
[2017-01-01] MEDS: VALPROATE ACID 250 MG/5 ML ORAL SOLUTION PO SCH ×2 (09:12→19:51)
--- NOTE | 2017-01-01 11:00 | NUR ---
Behavior Intervention Response and Plan: BIRP Note: Behavior: Assumed Care of patient, patient located in Day Room . Patient exhibited the following behavior Compliant, Disorganized, Withdrawn. Brief assessment on rounds of vital signs, medication needs, lab studies, and pain. Treatment plan problems Vascular Dementia W/ BD and Fall risk. Intervention: Patient assessed and the following interventions initiated safety checks 15 Minute Checks Head to toe Assessment , Medications , Oral Hydration. Response: After interactions and interventions patient responded in the following manner, cooperative, confused, disorganized. Continue to assess behaviors and condition will continue to monitor throughout the shift as needed. Patient educated on ADL's, and hand hygiene. 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 Continue to assess patient for changes in above assessment. Monitor for medication needs, pain, and safety concerns. Hourly rounding performed to ensure safe environment.
[2017-01-01 15:52] VITALS: BP 92/58
[2017-01-01] MEDS: MIRTAZAPINE 15 MG TABLET PO SCH (19:52)
[2017-01-01] MEDS: traZODone 100 MG TABLET. PO SCH (19:53)
--- NOTE | 2017-01-01 21:57 | PDOC ---
Exam Anson Demential Exam: Anson Note: Please also refer to the separate dictated note~for this date of service dictated separately.~Patient seen individually. Discussed the patient with Nursing staff reviewed the chart.~Reviewed interim history and current functioning. Reviewed vital signs,~Labs/ Radiology~and current medications noted below. Continue current treatment with the changes noted in the dictated addendum note Assessment: Vital Signs: Vital Signs Date Time Temp Pulse Resp B/P (MAP) Pulse Ox O2 Delivery O2 Flow Rate FiO2 01/01/17 15:52 97.8 95 18 92/58 (69) 97 I&O Intake and Output 01/02/17 06:59 Intake Total 1385 ml Balance 1385 ml Intake Oral 1385 ml Labs: Laboratory Tests Test 01/01/17 07:04 White Blood Count 4.3 x10^3/uL (4.0-11.0) Red Blood Count 4.51 x10^6/uL (3.50-5.40) Hemoglobin 14.0 g/dL (12.0-15.5) Hematocrit 42.3 % (36.0-47.0) Mean Corpuscular Volume 94 fL (79-100) Mean Corpuscular Hemoglobin 31 pg (25-35) Mean Corpuscular Hemoglobin Concent 33 g/dL (31-37) Red Cell Distribution Width 12.9 % (11.5-14.5) Platelet Count 220 x10^3/uL (140-400) Neutrophils (%) (Auto) 50 % (31-73) Lymphocytes (%) (Auto) 39 % (24-48) Monocytes (%) (Auto) 9 % (0-9) Eosinophils (%) (Auto) 3 % (0-3) Basophils (%) (Auto) 1 % (0-3) Neutrophils # (Auto) 2.1 x10^3uL (1.8-7.7) Lymphocytes # (Auto) 1.6 x10^3/uL (1.0-4.8) Monocytes # (Auto) 0.4 x10^3/uL (0.0-1.1) Eosinophils # (Auto) 0.1 x10^3/uL (0.0-0.7) Basophils # (Auto) 0.0 x10^3/uL (0.0-0.2) Sodium Level 145 mmol/L (136-145) Potassium Level 3.8 mmol/L (3.5-5.1) Chloride Level 107 mmol/L (98-107) Carbon Dioxide Level 33 mmol/L (21-32) H Anion Gap 5 (6-14) L Blood Urea Nitrogen 9 mg/dL (7-20) Creatinine 0.8 mg/dL (0.6-1.0) Estimated GFR (Cockcroft-Gault) 71.1 BUN/Creatinine Ratio 11 (6-20) Glucose Level 92 mg/dL (70-99) Calcium Level 8.9 mg/dL (8.5-10.1) Total Bilirubin 0.7 mg/dL (0.2-1.0) Aspartate Amino Transferase (AST) 12 U/L (15-37) L Alanine Aminotransferase (ALT) 17 U/L (14-59) Alkaline Phosphatase 81 U/L (46-116) Total Protein 6.7 g/dL (6.4-8.2) Albumin 3.2 g/dL (3.4-5.0) L Albumin/Globulin Ratio 0.9 (1.0-1.7) L Valproic Acid Level 70 mcg/mL (50-100) Valproic Acid Last Dose Date 12/31/2016 Valproic Acid Last Dose Time 2100 Current Medications: Meds: Current Medications Nicotine (Nicoderm Cq 21mg) 1 patch DAILY TD Last administered on 01/01/17 09: 12; Start 12/24/16 at 09:00 Risperidone (RisperDAL) 1 mg BID PO Last administered on 12/24/16 09:07; Start 12/23/16 at 22:00; Stop 12/24/16 at 16:36; Status DC Acetaminophen (Tylenol) 650 mg PRN Q4HRS PRN PO PAIN / TEMP; Start 12/23/16 at 21:30 Aspirin (Children'S Aspirin) 81 mg DAILY PO Last administered on 01/01/17 09:11 ; Start 12/24/16 at 09:00 Bisacodyl (Dulcolax Supp) 10 mg PRN DAILY PRN RC CONSTIPATION; Start 12/23/16 at 21:30 Docusate Sodium (Colace) 100 mg BID PO Last administered on 01/01/17 19:53; Start 12/24/16 at 09:00 Famotidine (Pepcid) 20 mg PRN BID PRN PO DYSPEPSIA Last administered on 20:30; Start 12/23/16 at 21:30 Magnesium Hydroxide (Milk Of Magnesia) 2,400 mg PRN DAILY PRN PO CONSTIPATION; Start 12/23/16 at 21:30 Polyethylene Glycol (miraLAX) 17 gm DAILY PO Last administered on 01/01/17 09: 12; Start 12/24/16 at 09:00 Sennosides (Senna) 8.6 mg PRN BID PRN PO CONSTIPATION; Start 12/23/16 at 21:30 Atorvastatin Calcium (Lipitor) 40 mg DAILY PO Last administered on 01/01/17 09: 11; Start 12/24/16 at 09:00 Al Hydroxide/Mg Hydroxide (Mylanta Plus Xs) 15 ml PRN AFTMEALHC PRN PO DYSPEPSIA; Start 12/23/16 at 21:30 Multi-Ingredient Ointment (Analgesic [place]) 1 josiane PRN QID PRN TP MUSCLE PAIN; Start 12/23/16 at 21:30 Olanzapine (ZyPREXA ZYDIS) 2.5 mg PRN Q2HR PRN PO ANXIETY / AGITATION Last administered on 12/28/16 15:39; Start 12/23/16 at 21:30 Risperidone (RisperDAL) 1 mg BID PO Last administered on 12/25/16 19:17; Start 12/24/16 at 21:00; Stop 12/25/16 at 21:44; Status DC Risperidone (RisperDAL) 1 mg HS PO ; Start 12/26/16 at 21:00; Stop 12/26/16 at 21:00; Status DC Risperidone (RisperDAL) 0.5 mg DAILY PO Last administered on 12/26/16 09:33; Start 12/26/16 at 09:00; Stop 12/26/16 at 18:34; Status DC Sertraline HCl (Zoloft) 50 mg DAILY PO Last administered on 01/01/17 09:11; Start 12/26/16 at 09:00 Vitamin D (Vitamin D3) 50,000 unit WEEKLY PO ; Start 12/27/16 at 09:00 Mirtazapine (Remeron) 7.5 mg QHS PO Last administered on 12/26/16 21:14; Start 12/26/16 at 21:00; Stop 12/27/16 at 18:37; Status DC Quetiapine Fumarate (SEROquel) 12.5 mg BID92 PO Last administered on 12/28/16 14:07; Start 12/27/16 at 09:00; Stop 12/28/16 at 18:51; Status DC Quetiapine Fumarate (SEROquel) 25 mg HS PO Last administered on 12/26/16 21:13 ; Start 12/26/16 at 21:00; Stop 12/27/16 at 18:37; Status DC Mirtazapine (Remeron) 15 mg QHS PO Last administered on 01/01/17 19:52; Start 12/27/16 at 21:00 Quetiapine Fumarate (SEROquel) 50 mg HS PO Last administered on 12/27/16 19:36 ; Start 12/27/16 at 21:00; Stop 12/28/16 at 18:51; Status DC Trazodone HCl (Desyrel) 50 mg QHS PO Last administered on 12/27/16 19:36; Start 12/27/16 at 21:00; Stop 12/28/16 at 18:53; Status DC Trazodone HCl (Desyrel) 50 mg PRN DAILY PRN PO INSOMNIA, MAY REPEAT IN 1HR; Start 12/27/16 at 18:45 Trazodone HCl (Desyrel) 50 mg PRN QHS PRN PO INSOMNIA, MAY REPEAT X1; Start at 13:15; Stop 12/28/16 at 18:53; Status DC Lorazepam (Ativan Intensol) 2 mg PRN Q2HR PRN SL ANXIETY / AGITATION; Start at 15:30; Stop 12/28/16 at 15:37; Status DC Lorazepam (Ativan Intensol) 0.5 mg PRN Q2HR PRN SL ANXIETY / AGITATION Last administered on 12/28/16 15:46; Start 12/28/16 at 15:45 Quetiapine Fumarate (SEROquel) 75 mg HS PO Last administered on 01/01/17 19:52 ; Start 12/28/16 at 21:00 Quetiapine Fumarate (SEROquel) 50 mg BID92 PO Last administered on 01/01/17 14: 33; Start 12/29/16 at 09:00 Trazodone HCl (Desyrel) 100 mg HS PO Last administered on 01/01/17 19:53; Start 12/28/16 at 21:00 Trazodone HCl (Desyrel) 100 mg PRN QHS PRN PO INSOMNIA MAY REPEAT X1 Last administered on 12/28/16 19:48; Start 12/28/16 at 19:00 Valproic Acid (Depakene) 250 mg BID PO Last administered on 01/01/17 19:51; Start 12/28/16 at 21:00 Active Scripts Active Reported Haldol (Haloperidol Lactate) 5 Mg/1 Ml Ampul 2 Mg SUBCUT PRN Q4HRS PRN Famotidine 20 Mg Tablet 20 Mg PO PRN BID PRN Senna (Sennosides) 8.6 Mg Tablet 8.6 Mg PO PRN BID PRN Milk Of Magnesia (Magnesium Hydroxide) 400 Mg/5 Ml Oral.susp 2,400 Mg PO PRN DAILY PRN Dulcolax (Bisacodyl) 10 Mg Supp.rect 10 Mg RC PRN DAILY Tylenol (Acetaminophen) 325 Mg Tablet 650 Mg PO Q4HRS PRN Risperidone 1 Mg/1 Ml Disp.syrin 1 Mg PO BID Polyethylene Glycol 3350 255 Gm Powder 17 Gm PO DAILY Docusate Sodium 100 Mg Capsule 100 Mg PO BID Atorvastatin Calcium 40 Mg Tablet 40 Mg PO DAILY Aspirin 81 Mg Tab.chew 81 Mg PO DAILY Diagnosis: Problems: (1) Anxiety disorder (2) Dementia, vascular, with delusions (3) Dementia, vascular, with depression (4) Impulse control disorder RELL PUENTE MD Jan 01, 2017 21:57
--- NOTE | 2017-01-01 23:10 | NUR ---
Behavior Intervention Response and Plan: BIRP Note: Behavior: Assumed Care of patient, patient located in Day Room at shift change. Patient exhibited the following behavior Restless, Disorganized, Compliant. Brief assessment on rounds of vital signs, medication needs, lab studies, and pain. Treatment plan problems . Intervention: Patient assessed and the following interventions initiated safety checks 15 Minute Checks Head to toe Assessment , Cognitive Assessment , Medications. Response: After interactions and interventions patient responded in the following manner, Withdrawn , ,Cooperative. Continue to assess behaviors and condition will continue to monitor throughout the shift as needed. Patient educated on ADL's, and hand hygiene. Plan: Continue to monitor Master Treatment Plan for patient's progress toward short term goals of , Medication Compliance, usp goals to return to previous living setting vs placement. Continue to assess patient for changes in above assessment. Monitor for medication needs, pain, and safety concerns. Hourly rounding performed to ensure safe environment.
--- NOTE | 2017-01-02 01:34 | PN ---
DATE: 12/31/2016 PSYCHIATRIC PROGRESS NOTE This is a late entry date of service 12/31/2016 covers elements not covered in my initial note of 12/31/2016. SUBJECTIVE: I met with the patient individually evening of 12/31/2016. The patient remains confused, disorganized, refusing all medications, food and drink at times, spends much time in her room. REVIEW OF SYSTEMS: No CV, , pulmonary, eye, ENT system symptoms on review. However, she has not been aggressive like she was 3 days back. MENTAL STATUS EXAM: Oriented to herself. Insight, judgment, recent and remote memory, attention, concentration, fund of knowledge poor, consistent with her diagnosis mentioned in my initial note. PLAN: Continue current psychotropics. Reviewed drug interactions, risk/benefit ratio favors no further change at this time. MAN Ketan PUENTE MD DR: BRIONNA/gui JOB#: [id number] / [id number]
[2017-01-02 06:34] VITALS: BP 103/61
[2017-01-02] MEDS: POLYETHYLENE GLYCOL 3350 17 GM PACKET. PO SCH (08:03)
[2017-01-02] MEDS: NICOTINE 21MG PATCH. TD SCH (08:04)
[2017-01-02] MEDS: DOCUSATE SODIUM 100 MG CAPSULE PO SCH ×2 (08:04→19:52)
[2017-01-02] MEDS: VALPROATE ACID 250 MG/5 ML ORAL SOLUTION PO SCH ×2 (08:04→19:52)
[2017-01-02] MEDS: QUEtiapine 50 MG TABLET. PO SCH ×3 (08:04→19:52)
[2017-01-02] MEDS: ATORVASTATIN CALCIUM 20 MG TABLET PO SCH (08:04)
[2017-01-02] MEDS: ASPIRIN 81 MG TAB.CHEW PO SCH (08:04)
[2017-01-02] MEDS: SERTRALINE 25 MG TABLET. PO SCH (08:04)
--- NOTE | 2017-01-02 11:31 | NUR ---
Behavior Intervention Response and Plan: BIRP Note: Behavior: Assumed Care of patient, patient located in Dining Room at shift change. Patient exhibited the following behavior Restless, Wandering, Calm. Brief assessment on rounds of vital signs, medication needs, lab studies, and pain. Treatment plan problems 1 and 2. Intervention: Patient assessed and the following interventions initiated safety checks 15 Minute Checks Cognitive Assessment , Head to toe Assessment , Medications. Response: After interactions and interventions patient responded in the following manner, Compliant , Disorganized ,Calm. Continue to assess behaviors and condition will continue to monitor throughout the shift as needed. Patient educated on ADL's, and hand hygiene. Plan: Continue to monitor Master Treatment Plan for patient's progress toward short term goals of Decreased Agitation, Medication Compliance, custodial goals to return to previous living setting vs placement. Continue to assess patient for changes in above assessment. Monitor for medication needs, pain, and safety concerns. Hourly rounding performed to ensure safe environment.
[2017-01-02 15:58] VITALS: BP 108/65
[2017-01-02] MEDS: traZODone 100 MG TABLET. PO SCH (19:52)
[2017-01-02] MEDS: MIRTAZAPINE 15 MG TABLET PO SCH (19:52)
--- NOTE | 2017-01-02 22:53 | PDOC ---
Exam Anson Demential Exam: Anson Note: Please also refer to the separate dictated note~for this date of service dictated separately.~Patient seen individually. Discussed the patient with Nursing staff reviewed the chart.~Reviewed interim history and current functioning. Reviewed vital signs,~Labs/ Radiology~and current medications noted below. Continue current treatment with the changes noted in the dictated addendum note Assessment: Vital Signs: Vital Signs Date Time Temp Pulse Resp B/P (MAP) Pulse Ox O2 Delivery O2 Flow Rate FiO2 01/02/17 15:58 97.7 103 16 108/65 (79) 95 I&O Intake and Output 01/03/17 06:59 Intake Total 1200 ml Balance 1200 ml Intake Oral 1200 ml # Voids 2 Current Medications: Meds: Current Medications Nicotine (Nicoderm Cq 21mg) 1 patch DAILY TD Last administered on 01/02/17 08: 04; Start 12/24/16 at 09:00 Risperidone (RisperDAL) 1 mg BID PO Last administered on 12/24/16 09:07; Start 12/23/16 at 22:00; Stop 12/24/16 at 16:36; Status DC Acetaminophen (Tylenol) 650 mg PRN Q4HRS PRN PO PAIN / TEMP; Start 12/23/16 at 21:30 Aspirin (Children'S Aspirin) 81 mg DAILY PO Last administered on 01/02/17 08:04 ; Start 12/24/16 at 09:00 Bisacodyl (Dulcolax Supp) 10 mg PRN DAILY PRN RC CONSTIPATION; Start 12/23/16 at 21:30 Docusate Sodium (Colace) 100 mg BID PO Last administered on 01/02/17 19:52; Start 12/24/16 at 09:00 Famotidine (Pepcid) 20 mg PRN BID PRN PO DYSPEPSIA Last administered on 20:30; Start 12/23/16 at 21:30 Magnesium Hydroxide (Milk Of Magnesia) 2,400 mg PRN DAILY PRN PO CONSTIPATION; Start 12/23/16 at 21:30 Polyethylene Glycol (miraLAX) 17 gm DAILY PO Last administered on 01/02/17 08: 03; Start 12/24/16 at 09:00 Sennosides (Senna) 8.6 mg PRN BID PRN PO CONSTIPATION; Start 12/23/16 at 21:30 Atorvastatin Calcium (Lipitor) 40 mg DAILY PO Last administered on 01/02/17 08: 04; Start 12/24/16 at 09:00 Al Hydroxide/Mg Hydroxide (Mylanta Plus Xs) 15 ml PRN AFTMEALHC PRN PO DYSPEPSIA; Start 12/23/16 at 21:30 Multi-Ingredient Ointment (Analgesic [place]) 1 josiane PRN QID PRN TP MUSCLE PAIN; Start 12/23/16 at 21:30 Olanzapine (ZyPREXA ZYDIS) 2.5 mg PRN Q2HR PRN PO ANXIETY / AGITATION Last administered on 12/28/16 15:39; Start 12/23/16 at 21:30 Risperidone (RisperDAL) 1 mg BID PO Last administered on 12/25/16 19:17; Start 12/24/16 at 21:00; Stop 12/25/16 at 21:44; Status DC Risperidone (RisperDAL) 1 mg HS PO ; Start 12/26/16 at 21:00; Stop 12/26/16 at 21:00; Status DC Risperidone (RisperDAL) 0.5 mg DAILY PO Last administered on 12/26/16 09:33; Start 12/26/16 at 09:00; Stop 12/26/16 at 18:34; Status DC Sertraline HCl (Zoloft) 50 mg DAILY PO Last administered on 01/02/17 08:04; Start 12/26/16 at 09:00 Vitamin D (Vitamin D3) 50,000 unit WEEKLY PO ; Start 12/27/16 at 09:00 Mirtazapine (Remeron) 7.5 mg QHS PO Last administered on 12/26/16 21:14; Start 12/26/16 at 21:00; Stop 12/27/16 at 18:37; Status DC Quetiapine Fumarate (SEROquel) 12.5 mg BID92 PO Last administered on 12/28/16 14:07; Start 12/27/16 at 09:00; Stop 12/28/16 at 18:51; Status DC Quetiapine Fumarate (SEROquel) 25 mg HS PO Last administered on 12/26/16 21:13 ; Start 12/26/16 at 21:00; Stop 12/27/16 at 18:37; Status DC Mirtazapine (Remeron) 15 mg QHS PO Last administered on 01/02/17 19:52; Start 12/27/16 at 21:00 Quetiapine Fumarate (SEROquel) 50 mg HS PO Last administered on 12/27/16 19:36 ; Start 12/27/16 at 21:00; Stop 12/28/16 at 18:51; Status DC Trazodone HCl (Desyrel) 50 mg QHS PO Last administered on 12/27/16 19:36; Start 12/27/16 at 21:00; Stop 12/28/16 at 18:53; Status DC Trazodone HCl (Desyrel) 50 mg PRN DAILY PRN PO INSOMNIA, MAY REPEAT IN 1HR; Start 12/27/16 at 18:45 Trazodone HCl (Desyrel) 50 mg PRN QHS PRN PO INSOMNIA, MAY REPEAT X1; Start at 13:15; Stop 12/28/16 at 18:53; Status DC Lorazepam (Ativan Intensol) 2 mg PRN Q2HR PRN SL ANXIETY / AGITATION; Start at 15:30; Stop 12/28/16 at 15:37; Status DC Lorazepam (Ativan Intensol) 0.5 mg PRN Q2HR PRN SL ANXIETY / AGITATION Last administered on 12/28/16 15:46; Start 12/28/16 at 15:45 Quetiapine Fumarate (SEROquel) 75 mg HS PO Last administered on 01/02/17 19:52 ; Start 12/28/16 at 21:00 Quetiapine Fumarate (SEROquel) 50 mg BID92 PO Last administered on 01/02/17 12: 18; Start 12/29/16 at 09:00 Trazodone HCl (Desyrel) 100 mg HS PO Last administered on 01/02/17 19:52; Start 12/28/16 at 21:00 Trazodone HCl (Desyrel) 100 mg PRN QHS PRN PO INSOMNIA MAY REPEAT X1 Last administered on 12/28/16 19:48; Start 12/28/16 at 19:00 Valproic Acid (Depakene) 250 mg BID PO Last administered on 01/02/17 19:52; Start 12/28/16 at 21:00 Active Scripts Active Reported Haldol (Haloperidol Lactate) 5 Mg/1 Ml Ampul 2 Mg SUBCUT PRN Q4HRS PRN Famotidine 20 Mg Tablet 20 Mg PO PRN BID PRN Senna (Sennosides) 8.6 Mg Tablet 8.6 Mg PO PRN BID PRN Milk Of Magnesia (Magnesium Hydroxide) 400 Mg/5 Ml Oral.susp 2,400 Mg PO PRN DAILY PRN Dulcolax (Bisacodyl) 10 Mg Supp.rect 10 Mg RC PRN DAILY Tylenol (Acetaminophen) 325 Mg Tablet 650 Mg PO Q4HRS PRN Risperidone 1 Mg/1 Ml Disp.syrin 1 Mg PO BID Polyethylene Glycol 3350 255 Gm Powder 17 Gm PO DAILY Docusate Sodium 100 Mg Capsule 100 Mg PO BID Atorvastatin Calcium 40 Mg Tablet 40 Mg PO DAILY Aspirin 81 Mg Tab.chew 81 Mg PO DAILY Diagnosis: Problems: (1) Anxiety disorder (2) Dementia, vascular, with delusions (3) Dementia, vascular, with depression (4) Impulse control disorder RELL PUENTE MD Jan 02, 2017 22:53
--- NOTE | 2017-01-03 00:47 | PN ---
DATE: 01/01/2017 PSYCHIATRIC PROGRESS NOTE Late entry 01/01/2017 covers elements not covered in my initial note. SUBJECTIVE: I met with the patient in the evening of 01/01/2017. She slept 8-1/2 hours previous evening, spends much time in her room, takes meds and boost, appetite is fair. No CV, , pulmonary, eye, ENT system symptoms on review. MENTAL STATUS EXAM: Oriented to herself. Insight, judgment, recent and remote memory, attention, concentration, fund of knowledge poor, consistent with her diagnosis mentioned in my initial note. PLAN: Continue current psychotropics. I reviewed drug interactions, risk/benefit ratio favors no further change at this time. We will try and reduce the Seroquel gradually. Consider Depakote as a mood stabilizer if needed. She slept 8-1/2 hours previous evening. MAN Ketan PUENTE MD DR: BRIONNA/gui JOB#: [id number] / [id number]
[2017-01-03 06:40] VITALS: BP 111/68
[2017-01-03] MEDS: POLYETHYLENE GLYCOL 3350 17 GM PACKET. PO SCH (08:52)
[2017-01-03] MEDS: QUEtiapine 50 MG TABLET. PO SCH ×3 (08:52→19:59)
[2017-01-03] MEDS: SERTRALINE 25 MG TABLET. PO SCH (08:52)
[2017-01-03] MEDS: VALPROATE ACID 250 MG/5 ML ORAL SOLUTION PO SCH ×2 (08:52→19:58)
[2017-01-03] MEDS: DOCUSATE SODIUM 100 MG CAPSULE PO SCH ×2 (08:52→19:58)
[2017-01-03] MEDS: ATORVASTATIN CALCIUM 20 MG TABLET PO SCH (08:52)
[2017-01-03] MEDS: NICOTINE 21MG PATCH. TD SCH (08:52)
[2017-01-03] MEDS: ASPIRIN 81 MG TAB.CHEW PO SCH (08:53)
[2017-01-03] MEDS: CHOLECALCIFEROL (VITAMIN D3) 50,000 UNIT CAPSULE PO SCH (08:56)
--- NOTE | 2017-01-03 09:00 | NUR ---
THERAPEUTIC RECREATION GROUP NOTE TITLE :Ball Bounce and Reminisce about Seasons ACTIVITY : Activities and Games GOAL : Increase social interaction, fine motor skills. Maintain or improve mental functioning. Decrease restlessness DURATION : 60 minutes RESPONSE : Full participation. Pt. smiled most of the time and was able to catch and bounce the ball without trouble. She left the group for a while in the middle of the group but returned and rejoin the group discussion. Pt. was very sure of what she was saying; however, her sentences did not make sense.
--- NOTE | 2017-01-03 09:20 | NUR ---
Behavior Intervention Response and Plan: BIRP Note: Behavior: Assumed Care of patient, patient located in Patient Room at shift change. Patient exhibited the following behavior Wandering, Disorganized, Restless. Brief assessment on rounds of vital signs, medication needs, lab studies, and pain. Treatment plan problems 1 & 2. Intervention: Patient assessed and the following interventions initiated safety checks 15 Minute Checks Cognitive Assessment , Head to toe Assessment , Medications. Response: After interactions and interventions patient responded in the following manner, Calm , Appropriate ,Cooperative. Continue to assess behaviors and condition will continue to monitor throughout the shift as needed. Patient educated on ADL's, and hand hygiene. Plan: Continue to monitor Master Treatment Plan for patient's progress toward short term goals of Decreased Agitation, Decreased Aggression, shelter goals to return to previous living setting vs placement. Continue to assess patient for changes in above assessment. Monitor for medication needs, pain, and safety concerns. Hourly rounding performed to ensure safe environment.
--- NOTE | 2017-01-03 10:10 | NUR ---
SHIRLEY faxed admission referral to the following [facility]: [facility], [facility], [facility], [facility], and [facility] in [place].
--- NOTE | 2017-01-03 11:30 | NUR ---
THERAPEUTIC RECREATION GROUP NOTE TITLE :Movement to Music: Strength ACTIVITY : Movement/ Exercise GOAL : Increase morale, attention, flexibility. Decrease stress/anxiety. DURATION : 30 Minutes RESPONSE : Full participation. Pt. was alert and engaged the entire time. She needed no prompting to stay on task and was calm and social the entire time.
--- NOTE | 2017-01-03 14:00 | NUR ---
THERAPEUTIC RECREATION GROUP NOTE TITLE :Sing along with Keshia ACTIVITY : Music GOAL : Increase socialization, elevate mood, stimulate memory DURATION : 60 minutes RESPONSE : Full participation. Pt. was alert and engaged the entire time. She bounced foot to the music, applauded after the songs; however, did not contribute to the conversation. She was calm and pleasant the entire time.
[2017-01-03 17:35] VITALS: BP 103/66
--- NOTE | 2017-01-03 19:41 | PDOC ---
Exam Anson Demential Exam: Anson Note: Please also refer to the separate dictated note~for this date of service dictated separately.~Patient seen individually. Discussed the patient with Nursing staff reviewed the chart.~Reviewed interim history and current functioning. Reviewed vital signs,~Labs/ Radiology~and current medications noted below. Continue current treatment with the changes noted in the dictated addendum note Assessment: Vital Signs: Vital Signs Date Time Temp Pulse Resp B/P (MAP) Pulse Ox O2 Delivery O2 Flow Rate FiO2 01/03/17 17:35 98.0 86 20 103/66 (78) 94 Room Air I&O Intake and Output 01/04/17 07:00 Intake Total 1080 ml Balance 1080 ml Intake Oral 1080 ml Current Medications: Meds: Current Medications Nicotine (Nicoderm Cq 21mg) 1 patch DAILY TD Last administered on 01/03/17 08: 52; Start 12/24/16 at 09:00 Risperidone (RisperDAL) 1 mg BID PO Last administered on 12/24/16 09:07; Start 12/23/16 at 22:00; Stop 12/24/16 at 16:36; Status DC Acetaminophen (Tylenol) 650 mg PRN Q4HRS PRN PO PAIN / TEMP; Start 12/23/16 at 21:30 Aspirin (Children'S Aspirin) 81 mg DAILY PO Last administered on 01/03/17 08:53 ; Start 12/24/16 at 09:00 Bisacodyl (Dulcolax Supp) 10 mg PRN DAILY PRN RC CONSTIPATION; Start 12/23/16 at 21:30 Docusate Sodium (Colace) 100 mg BID PO Last administered on 01/03/17 08:52; Start 12/24/16 at 09:00 Famotidine (Pepcid) 20 mg PRN BID PRN PO DYSPEPSIA Last administered on 20:30; Start 12/23/16 at 21:30 Magnesium Hydroxide (Milk Of Magnesia) 2,400 mg PRN DAILY PRN PO CONSTIPATION; Start 12/23/16 at 21:30 Polyethylene Glycol (miraLAX) 17 gm DAILY PO Last administered on 01/03/17 08: 52; Start 12/24/16 at 09:00 Sennosides (Senna) 8.6 mg PRN BID PRN PO CONSTIPATION; Start 12/23/16 at 21:30 Atorvastatin Calcium (Lipitor) 40 mg DAILY PO Last administered on 01/03/17 08: 52; Start 12/24/16 at 09:00 Al Hydroxide/Mg Hydroxide (Mylanta Plus Xs) 15 ml PRN AFTMEALHC PRN PO DYSPEPSIA; Start 12/23/16 at 21:30 Multi-Ingredient Ointment (Analgesic [place]) 1 josiane PRN QID PRN TP MUSCLE PAIN; Start 12/23/16 at 21:30 Olanzapine (ZyPREXA ZYDIS) 2.5 mg PRN Q2HR PRN PO ANXIETY / AGITATION Last administered on 12/28/16 15:39; Start 12/23/16 at 21:30 Risperidone (RisperDAL) 1 mg BID PO Last administered on 12/25/16 19:17; Start 12/24/16 at 21:00; Stop 12/25/16 at 21:44; Status DC Risperidone (RisperDAL) 1 mg HS PO ; Start 12/26/16 at 21:00; Stop 12/26/16 at 21:00; Status DC Risperidone (RisperDAL) 0.5 mg DAILY PO Last administered on 12/26/16 09:33; Start 12/26/16 at 09:00; Stop 12/26/16 at 18:34; Status DC Sertraline HCl (Zoloft) 50 mg DAILY PO Last administered on 01/03/17 08:52; Start 12/26/16 at 09:00 Vitamin D (Vitamin D3) 50,000 unit WEEKLY PO Last administered on 01/03/17 08: 56; Start 12/27/16 at 09:00 Mirtazapine (Remeron) 7.5 mg QHS PO Last administered on 12/26/16 21:14; Start 12/26/16 at 21:00; Stop 12/27/16 at 18:37; Status DC Quetiapine Fumarate (SEROquel) 12.5 mg BID92 PO Last administered on 12/28/16 14:07; Start 12/27/16 at 09:00; Stop 12/28/16 at 18:51; Status DC Quetiapine Fumarate (SEROquel) 25 mg HS PO Last administered on 12/26/16 21:13 ; Start 12/26/16 at 21:00; Stop 12/27/16 at 18:37; Status DC Mirtazapine (Remeron) 15 mg QHS PO Last administered on 01/02/17 19:52; Start 12/27/16 at 21:00 Quetiapine Fumarate (SEROquel) 50 mg HS PO Last administered on 12/27/16 19:36 ; Start 12/27/16 at 21:00; Stop 12/28/16 at 18:51; Status DC Trazodone HCl (Desyrel) 50 mg QHS PO Last administered on 12/27/16 19:36; Start 12/27/16 at 21:00; Stop 12/28/16 at 18:53; Status DC Trazodone HCl (Desyrel) 50 mg PRN DAILY PRN PO INSOMNIA, MAY REPEAT IN 1HR; Start 12/27/16 at 18:45 Trazodone HCl (Desyrel) 50 mg PRN QHS PRN PO INSOMNIA, MAY REPEAT X1; Start at 13:15; Stop 12/28/16 at 18:53; Status DC Lorazepam (Ativan Intensol) 2 mg PRN Q2HR PRN SL ANXIETY / AGITATION; Start at 15:30; Stop 12/28/16 at 15:37; Status DC Lorazepam (Ativan Intensol) 0.5 mg PRN Q2HR PRN SL ANXIETY / AGITATION Last administered on 12/28/16 15:46; Start 12/28/16 at 15:45 Quetiapine Fumarate (SEROquel) 75 mg HS PO Last administered on 01/02/17 19:52 ; Start 12/28/16 at 21:00 Quetiapine Fumarate (SEROquel) 50 mg BID92 PO Last administered on 01/03/17 14: 02; Start 12/29/16 at 09:00 Trazodone HCl (Desyrel) 100 mg HS PO Last administered on 01/02/17 19:52; Start 12/28/16 at 21:00 Trazodone HCl (Desyrel) 100 mg PRN QHS PRN PO INSOMNIA MAY REPEAT X1 Last administered on 12/28/16 19:48; Start 12/28/16 at 19:00 Valproic Acid (Depakene) 250 mg BID PO Last administered on 01/03/17t 08:52; Start 12/28/16 at 21:00 Cyanocobalamin (Vitamin B-12) 1,000 mcg DAILY PO ; Start 01/04/17 at 09:00 Active Scripts Active Reported Haldol (Haloperidol Lactate) 5 Mg/1 Ml Ampul 2 Mg SUBCUT PRN Q4HRS PRN Famotidine 20 Mg Tablet 20 Mg PO PRN BID PRN Senna (Sennosides) 8.6 Mg Tablet 8.6 Mg PO PRN BID PRN Milk Of Magnesia (Magnesium Hydroxide) 400 Mg/5 Ml Oral.susp 2,400 Mg PO PRN DAILY PRN Dulcolax (Bisacodyl) 10 Mg Supp.rect 10 Mg RC PRN DAILY Tylenol (Acetaminophen) 325 Mg Tablet 650 Mg PO Q4HRS PRN Risperidone 1 Mg/1 Ml Disp.syrin 1 Mg PO BID Polyethylene Glycol 3350 255 Gm Powder 17 Gm PO DAILY Docusate Sodium 100 Mg Capsule 100 Mg PO BID Atorvastatin Calcium 40 Mg Tablet 40 Mg PO DAILY Aspirin 81 Mg Tab.chew 81 Mg PO DAILY Diagnosis: Problems: (1) Anxiety disorder (2) Dementia, vascular, with delusions (3) Dementia, vascular, with depression (4) Impulse control disorder RELL PUENTE MD Jan 03, 2017 19:41
[2017-01-03] MEDS: MIRTAZAPINE 15 MG TABLET PO SCH (19:58)
[2017-01-03] MEDS: traZODone 100 MG TABLET. PO SCH (19:59)
--- NOTE | 2017-01-03 22:15 | NUR ---
Behavior Intervention Response and Plan: BIRP Note: Behavior: Assumed Care of patient, patient located in Day Room at shift change. Patient exhibited the following behavior Calm, Disorganized, Able to Focus on Task. Brief assessment on rounds of vital signs, medication needs, lab studies, and pain. Treatment plan problems . Intervention: Patient assessed and the following interventions initiated safety checks 15 Minute Checks Head to toe Assessment , Cognitive Assessment , Medications. Response: After interactions and interventions patient responded in the following manner, Anxious , Delusions ,Resistive. Continue to assess behaviors and condition will continue to monitor throughout the shift as needed. Patient educated on ADL's, and hand hygiene. Plan: Continue to monitor Master Treatment Plan for patient's progress toward short term goals of Improved Mood, Medication Compliance, [facility] goals to return to previous living setting vs placement. Continue to assess patient for changes in above assessment. Monitor for medication needs, pain, and safety concerns. Hourly rounding performed to ensure safe environment.
--- NOTE | 2017-01-04 02:17 | PN ---
DATE: 01/02/2017 SUBJECTIVE: This is a late entry 01/02/2017, covers elements not covered in my initial note on 01/02/2017. I met with the patient evening of 01/02/2017. The patient slept 5 hours previous evening. Confused, disorganized, and compliant with medications; otherwise, pleasant and spends much time in her room and somewhat paranoid. REVIEW OF SYSTEMS: No CV, , pulmonary, eye, or ENT system symptoms on review. Reliability poor. MENTAL STATUS EXAM: Oriented to herself. Insight, judgment, recent and remote memory, attention, concentration, and fund of knowledge poor consistent with her diagnosis mentioned in my initial note. PLAN: Valproic acid level therapeutic at 71. Continue Depakote at current dosage. Maintain the rest of the psychotropics. Reviewed drug interactions and risk/benefit ratio favors no further change of now. We will attempt to reduce the Seroquel once she has been stable another day or so. RELL PUENTE MD DR: BRIONNA/gui JOB#: [id number] / [id number]
[2017-01-04 06:17] VITALS: BP 136/67
[2017-01-04] MEDS: VALPROATE ACID 250 MG/5 ML ORAL SOLUTION PO SCH ×2 (08:19→20:01)
[2017-01-04] MEDS: ASPIRIN 81 MG TAB.CHEW PO SCH (08:20)
[2017-01-04] MEDS: ATORVASTATIN CALCIUM 20 MG TABLET PO SCH (08:20)
[2017-01-04] MEDS: DOCUSATE SODIUM 100 MG CAPSULE PO SCH ×2 (08:20→20:01)
[2017-01-04] MEDS: QUEtiapine 50 MG TABLET. PO SCH ×5 (08:20→20:02)
[2017-01-04] MEDS: POLYETHYLENE GLYCOL 3350 17 GM PACKET. PO SCH (08:20)
[2017-01-04] MEDS: SERTRALINE 25 MG TABLET. PO SCH (08:20)
[2017-01-04] MEDS: NICOTINE 21MG PATCH. TD SCH (08:21)
[2017-01-04] MEDS: CYANOCOBALAMIN (VITAMIN B-12) 1,000 MCG TABLET. PO SCH (08:22)
--- NOTE | 2017-01-04 09:30 | NUR ---
Behavior Intervention Response and Plan: BIRP Note: Behavior: Assumed Care of patient, patient located in Patient Room at shift change. Patient exhibited the following behavior Restless, Disorganized, Anxious. Brief assessment on rounds of vital signs, medication needs, lab studies, and pain. Treatment plan problems 1 & 2. Intervention: Patient assessed and the following interventions initiated safety checks 15 Minute Checks Call dick in reach , Head to toe Assessment , Oral Hydration. Response: After interactions and interventions patient responded in the following manner, Calm , Appropriate ,Compliant. Continue to assess behaviors and condition will continue to monitor throughout the shift as needed. Patient educated on ADL's, and hand hygiene. Plan: Continue to monitor Master Treatment Plan for patient's progress toward short term goals of Decreased Agitation, Decreased Aggression, termination clerk goals to return to previous living setting vs placement. Continue to assess patient for changes in above assessment. Monitor for medication needs, pain, and safety concerns. Hourly rounding performed to ensure safe environment.
--- NOTE | 2017-01-04 09:30 | NUR ---
THERAPEUTIC RECREATION GROUP NOTE TITLE :Fall Critter Painting ACTIVITY : Arts/ Crafts GOAL : Increase socialization, fine motor skills, creativity DURATION : 90 Minutes RESPONSE : No participation
--- NOTE | 2017-01-04 11:30 | NUR ---
THERAPEUTIC RECREATION GROUP NOTE TITLE :Movement to Music: Flexibility ACTIVITY : Movement/ Exercise GOAL : Increase morale, attention, flexibility. Decrease stress/anxiety. DURATION : 30 Minutes RESPONSE : No participation
--- NOTE | 2017-01-04 12:46 | NUR ---
SW followed up w/admission referrals faxed out previous day. SW left messages for [facility], received phone call from [facility] [place] ([facility]), and resent info to [facility].
--- NOTE | 2017-01-04 14:30 | NUR ---
THERAPEUTIC RECREATION GROUP NOTE TITLE :Seasonal/ Holiday Leisure ACTIVITY : Leisure Education GOAL : Increase knowledge of leisure activities DURATION : 45 minutes RESPONSE : No participation
--- NOTE | 2017-01-04 15:42 | NUR ---
Patient states that she just wants to lay down and and all she wants is to leave this place. She states that the girls are laughing and mean to her, she doesn't want to go to the patio. Patient referred to me as 'Karl' multiple times during the conversation. Will provide her 14:00 seroquel and prn as per eMAR.
[2017-01-04 16:26] VITALS: BP 128/67
[2017-01-04] MEDS: MIRTAZAPINE 15 MG TABLET PO SCH (20:01)
[2017-01-04] MEDS: traZODone 100 MG TABLET. PO SCH (20:01)
--- NOTE | 2017-01-04 20:03 | PDOC ---
Exam Anson Demential Exam: Anson Note: Please also refer to the separate dictated note~for this date of service dictated separately.~Patient seen individually. Discussed the patient with Nursing staff reviewed the chart.~Reviewed interim history and current functioning. Reviewed vital signs,~Labs/ Radiology~and current medications noted below. Continue current treatment with the changes noted in the dictated addendum note Assessment: Vital Signs: Vital Signs Date Time Temp Pulse Resp B/P (MAP) Pulse Ox O2 Delivery O2 Flow Rate FiO2 01/04/17 16:26 99.0 108 19 128/67 (87) 95 01/03/17 17:35 Room Air I&O Intake and Output 01/05/17 07:00 Intake Total 240 ml Balance 240 ml Intake Oral 240 ml Current Medications: Meds: Current Medications Nicotine (Nicoderm Cq 21mg) 1 patch DAILY TD Last administered on 01/04/17 08: 21; Start 12/24/16 at 09:00 Risperidone (RisperDAL) 1 mg BID PO Last administered on 12/24/16 09:07; Start 12/23/16 at 22:00; Stop 12/24/16 at 16:36; Status DC Acetaminophen (Tylenol) 650 mg PRN Q4HRS PRN PO PAIN / TEMP; Start 12/23/16 at 21:30 Aspirin (Children'S Aspirin) 81 mg DAILY PO Last administered on 01/04/17 08:20 ; Start 12/24/16 at 09:00 Bisacodyl (Dulcolax Supp) 10 mg PRN DAILY PRN RC CONSTIPATION; Start 12/23/16 at 21:30 Docusate Sodium (Colace) 100 mg BID PO Last administered on 01/04/17 20:01; Start 12/24/16 at 09:00 Famotidine (Pepcid) 20 mg PRN BID PRN PO DYSPEPSIA Last administered on 20:30; Start 12/23/16 at 21:30 Magnesium Hydroxide (Milk Of Magnesia) 2,400 mg PRN DAILY PRN PO CONSTIPATION; Start 12/23/16 at 21:30 Polyethylene Glycol (miraLAX) 17 gm DAILY PO Last administered on 01/04/17 08: 20; Start 12/24/16 at 09:00 Sennosides (Senna) 8.6 mg PRN BID PRN PO CONSTIPATION; Start 12/23/16 at 21:30 Atorvastatin Calcium (Lipitor) 40 mg DAILY PO Last administered on 01/04/17 08: 20; Start 12/24/16 at 09:00 Al Hydroxide/Mg Hydroxide (Mylanta Plus Xs) 15 ml PRN AFTMEALHC PRN PO DYSPEPSIA; Start 12/23/16 at 21:30 Multi-Ingredient Ointment (Analgesic [place]) 1 josiane PRN QID PRN TP MUSCLE PAIN; Start 12/23/16 at 21:30 Olanzapine (ZyPREXA ZYDIS) 2.5 mg PRN Q2HR PRN PO ANXIETY / AGITATION Last administered on 12/28/16 15:39; Start 12/23/16 at 21:30 Risperidone (RisperDAL) 1 mg BID PO Last administered on 12/25/16 19:17; Start 12/24/16 at 21:00; Stop 12/25/16 at 21:44; Status DC Risperidone (RisperDAL) 1 mg HS PO ; Start 12/26/16 at 21:00; Stop 12/26/16 at 21:00; Status DC Risperidone (RisperDAL) 0.5 mg DAILY PO Last administered on 12/26/16 09:33; Start 12/26/16 at 09:00; Stop 12/26/16 at 18:34; Status DC Sertraline HCl (Zoloft) 50 mg DAILY PO Last administered on 01/04/17 08:20; Start 12/26/16 at 09:00; Stop 01/04/17 at 18:44; Status DC Vitamin D (Vitamin D3) 50,000 unit WEEKLY PO Last administered on 01/03/17 08: 56; Start 12/27/16 at 09:00 Mirtazapine (Remeron) 7.5 mg QHS PO Last administered on 12/26/16 21:14; Start 12/26/16 at 21:00; Stop 12/27/16 at 18:37; Status DC Quetiapine Fumarate (SEROquel) 12.5 mg BID92 PO Last administered on 12/28/16 14:07; Start 12/27/16 at 09:00; Stop 12/28/16 at 18:51; Status DC Quetiapine Fumarate (SEROquel) 25 mg HS PO Last administered on 12/26/16 21:13 ; Start 12/26/16 at 21:00; Stop 12/27/16 at 18:37; Status DC Mirtazapine (Remeron) 15 mg QHS PO Last administered on 01/04/17 20:01; Start 12/27/16 at 21:00 Quetiapine Fumarate (SEROquel) 50 mg HS PO Last administered on 12/27/16 19:36 ; Start 12/27/16 at 21:00; Stop 12/28/16 at 18:51; Status DC Trazodone HCl (Desyrel) 50 mg QHS PO Last administered on 12/27/16 19:36; Start 12/27/16 at 21:00; Stop 12/28/16 at 18:53; Status DC Trazodone HCl (Desyrel) 50 mg PRN DAILY PRN PO INSOMNIA, MAY REPEAT IN 1HR; Start 12/27/16 at 18:45 Trazodone HCl (Desyrel) 50 mg PRN QHS PRN PO INSOMNIA, MAY REPEAT X1; Start at 13:15; Stop 12/28/16 at 18:53; Status DC Lorazepam (Ativan Intensol) 2 mg PRN Q2HR PRN SL ANXIETY / AGITATION; Start at 15:30; Stop 12/28/16 at 15:37; Status DC Lorazepam (Ativan Intensol) 0.5 mg PRN Q2HR PRN SL ANXIETY / AGITATION Last administered on 12/28/16 15:46; Start 12/28/16 at 15:45 Quetiapine Fumarate (SEROquel) 75 mg HS PO Last administered on 01/04/17 20:02 ; Start 12/28/16 at 21:00 Quetiapine Fumarate (SEROquel) 50 mg BID92 PO Last administered on 01/04/17 15: 53; Start 12/29/16 at 09:00 Trazodone HCl (Desyrel) 100 mg HS PO Last administered on 01/04/17 20:01; Start 12/28/16 at 21:00 Trazodone HCl (Desyrel) 100 mg PRN QHS PRN PO INSOMNIA MAY REPEAT X1 Last administered on 12/28/16 19:48; Start 12/28/16 at 19:00 Valproic Acid (Depakene) 250 mg BID PO Last administered on 01/04/17 20:01; Start 12/28/16 at 21:00 Cyanocobalamin (Vitamin B-12) 1,000 mcg DAILY PO Last administered on 01/04/17 08:22; Start 01/04/17 at 09:00 Sertraline HCl (Zoloft) 75 mg DAILY PO ; Start 01/05/17 at 09:00 Active Scripts Active Reported Haldol (Haloperidol Lactate) 5 Mg/1 Ml Ampul 2 Mg SUBCUT PRN Q4HRS PRN Famotidine 20 Mg Tablet 20 Mg PO PRN BID PRN Senna (Sennosides) 8.6 Mg Tablet 8.6 Mg PO PRN BID PRN Milk Of Magnesia (Magnesium Hydroxide) 400 Mg/5 Ml Oral.susp 2,400 Mg PO PRN DAILY PRN Dulcolax (Bisacodyl) 10 Mg Supp.rect 10 Mg RC PRN DAILY Tylenol (Acetaminophen) 325 Mg Tablet 650 Mg PO Q4HRS PRN Risperidone 1 Mg/1 Ml Disp.syrin 1 Mg PO BID Polyethylene Glycol 3350 255 Gm Powder 17 Gm PO DAILY Docusate Sodium 100 Mg Capsule 100 Mg PO BID Atorvastatin Calcium 40 Mg Tablet 40 Mg PO DAILY Aspirin 81 Mg Tab.chew 81 Mg PO DAILY Diagnosis: Problems: (1) Anxiety disorder (2) Dementia, vascular, with delusions (3) Dementia, vascular, with depression (4) Impulse control disorder RELL PUENTE MD Jan 04, 2017 20:03
--- NOTE | 2017-01-04 21:00 | NUR ---
pt is withdrawn, staying in her room in the dark. Pt did not want to eat her dinner, did not want to take her evening medications. Pt finally did take her medications and drank some gatorade, but would not eat her dinner.
--- NOTE | 2017-01-04 22:17 | NUR ---
Behavior Intervention Response and Plan: BIRP Note: Behavior: Assumed Care of patient, patient located in Patient Room at shift change. Patient exhibited the following behavior Restless, Disorganized, Anxious. Brief assessment on rounds of vital signs, medication needs, lab studies, and pain. Treatment plan problems 1 & 2. Intervention: Patient assessed and the following interventions initiated safety checks 15 Minute Checks Call dick in reach , Head to toe Assessment , Oral Hydration. Response: After interactions and interventions patient responded in the following manner, Calm , Appropriate ,Compliant. Continue to assess behaviors and condition will continue to monitor throughout the shift as needed. Patient educated on ADL's, and hand hygiene. 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 Continue to assess patient for changes in above assessment. Monitor for medication needs, pain, and safety concerns. Hourly rounding performed to ensure safe environment.
--- NOTE | 2017-01-05 01:51 | PN ---
DATE: 01/03/2017 This is a late entry for 01/03/2017 and covers elements not covered in my initial note. I met with the patient the evening of 01/03/2017 in her room. She took her bedtime medications, slept 8 hours, disorganized, oriented x 1, knew she was in the hospital, speech is word salad, had a good day, compliant with the medication and cooperative. Her son, oCy came and invested her but gave no feedback to the nursing staff after the visit on how she saw her progress. REVIEW OF SYSTEMS: No CV, , pulmonary, eye, ENT system symptoms on review. Reliability poor. MENTAL STATUS EXAM: Oriented to herself. Insight, judgment, recent and remote memory, attention, concentration, fund of knowledge poor, consistent with her diagnosis as mentioned in my initial note. PLAN: Continue psychotropics mentioned in my initial note. Valproic acid level is therapeutic at 71. Reviewed drug interactions, risk/benefit ratio favors no further change at this time. RELL PUENTE MD DR: BRIONNA/gui JOB#: [id number] / [id number]
[2017-01-05 06:05] VITALS: BP 107/66
[2017-01-05] MEDS: VALPROATE ACID 250 MG/5 ML ORAL SOLUTION PO SCH ×2 (09:18→20:43)
[2017-01-05] MEDS: ASPIRIN 81 MG TAB.CHEW PO SCH (09:19)
[2017-01-05] MEDS: DOCUSATE SODIUM 100 MG CAPSULE PO SCH ×2 (09:19→20:43)
[2017-01-05] MEDS: QUEtiapine 50 MG TABLET. PO SCH ×3 (09:19→20:41)
[2017-01-05] MEDS: CYANOCOBALAMIN (VITAMIN B-12) 1,000 MCG TABLET. PO SCH (09:19)
[2017-01-05] MEDS: ATORVASTATIN CALCIUM 20 MG TABLET PO SCH (09:19)
[2017-01-05] MEDS: POLYETHYLENE GLYCOL 3350 17 GM PACKET. PO SCH (09:20)
[2017-01-05] MEDS: NICOTINE 21MG PATCH. TD SCH (09:20)
[2017-01-05] MEDS: SERTRALINE 25 MG TABLET. PO SCH (09:20)
--- NOTE | 2017-01-05 09:45 | NUR ---
Behavior Intervention Response and Plan: BIRP Note: Behavior: Assumed Care of patient, patient located in Hallway at shift change. Patient exhibited the following behavior Disorganized, Anxious, Restless. Brief assessment on rounds of vital signs, medication needs, lab studies, and pain. Treatment plan problems 1 & 2. Intervention: Patient assessed and the following interventions initiated safety checks 15 Minute Checks Cognitive Assessment , Head to toe Assessment , Medications. Response: After interactions and interventions patient responded in the following manner, Calm , Appropriate ,Compliant. Continue to assess behaviors and condition will continue to monitor throughout the shift as needed. Patient educated on ADL's, and hand hygiene. 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 Continue to assess patient for changes in above assessment. Monitor for medication needs, pain, and safety concerns. Hourly rounding performed to ensure safe environment.
--- NOTE | 2017-01-05 11:30 | NUR ---
THERAPEUTIC RECREATION GROUP NOTE TITLE :Movement to Music: Strength ACTIVITY : Movement/ Exercise GOAL : Increase morale, attention, flexibility. Decrease stress/anxiety. DURATION : 30 Minutes RESPONSE : Minimal participation. Pt. joined the group only for a few minutes, followed along with a few moves and then left.
--- NOTE | 2017-01-05 12:25 | NUR ---
SW sent admit referral to [facility] per recommendation of their sister facility, [facility]. [facility] and [facility] did not feel they could meet Pt's needs
--- NOTE | 2017-01-05 14:05 | NUR ---
SW spoke w/Pt's son, Coy, regarding updates from Treatment Team this am and overall successful w/finding an AL. SW stated another referral was sent to [facility] today and SW will wait to hear back from facility before sending out additional referrals.
--- NOTE | 2017-01-05 14:15 | NUR ---
THERAPEUTIC RECREATION GROUP NOTE TITLE :Music Bingo ACTIVITY : Music, Cognitive Stimulation GOAL : Increase socialization, elevate mood, stimulate memory, Maintain or improve cognitive functioning DURATION : 60 minutes RESPONSE : Moderate participation. Pt. was alert and engaged most of the session. She left with about 15 minutes remaining, stayed in the group room but only listened to the music from the other side. Her sentences did not make complete sense but she was engaged and often sang along with songs.
--- NOTE | 2017-01-05 16:00 | NUR ---
SHIRLEY received a message from Pt's son, Coy, stating he was surprised SW had been searching for placement for Pt. and SW needed to contact a lady who works w/[employer] as she has also been searching for placement for the past 1 month for Pt. SHIRLEY returned the call to inquire further about [employer] services and Pt's son became very angry and verbally aggressive w/this SW, stating he had no idea this SW had began the placement process and he did not authorize for this SW to begin looking for placement. He demanded this SW to coordinate further placement w/the lady he had been working w/at [facility] w/[employer]. SHIRLEY reminded Pt. of the previous discussions both at the end of last week stating placement process would begin at the beginning of this week, and then talking again at the beginning of this week to verify finances and locations. SHIRLEY had previously requested a list from Coy w/placement tours done previous to Pt. admitting to the facility and Coy has yet to provide that to this SW. SHIRLEY has stated several times to Coy the extreme difficulties w/the limited finances available to find a [facility] AL near the [facility] that will meet his expectations for PT. Coy has toured facilities that are several thousand dollars above the dietz range he is able to provide. Coy then stated he heard this SHIRLEY stated earlier in the day Pt. would be at this facility for at least several more weeks. SHIRLEY stated that was not what was discussed as Pt. would likely be here until placement is found, hopefully by the end of next week. SHIRLEY apologized to Coy for the misunderstandings/miscommunications. The conversation was left w/Coy again telling this SW to follow up w/[employer].
[2017-01-05 16:05] VITALS: BP 96/62
--- NOTE | 2017-01-05 19:46 | PDOC ---
Exam Anson Demential Exam: Anson Note: Please also refer to the separate dictated note~for this date of service dictated separately.~Patient seen individually. Discussed the patient with Nursing staff reviewed the chart.~Reviewed interim history and current functioning. Reviewed vital signs,~Labs/ Radiology~and current medications noted below. Continue current treatment with the changes noted in the dictated addendum note Assessment: Vital Signs: Vital Signs Date Time Temp Pulse Resp B/P (MAP) Pulse Ox O2 Delivery O2 Flow Rate FiO2 01/05/17 16:05 98.4 84 18 96/62 (73) 94 01/03/17 17:35 Room Air I&O Intake and Output 01/06/17 07:00 Intake Total 900 ml Balance 900 ml Intake Oral 900 ml Current Medications: Meds: Current Medications Nicotine (Nicoderm Cq 21mg) 1 patch DAILY TD Last administered on 01/05/17 09: 20; Start 12/24/16 at 09:00 Risperidone (RisperDAL) 1 mg BID PO Last administered on 12/24/16 09:07; Start 12/23/16 at 22:00; Stop 12/24/16 at 16:36; Status DC Acetaminophen (Tylenol) 650 mg PRN Q4HRS PRN PO PAIN / TEMP; Start 12/23/16 at 21:30 Aspirin (Children'S Aspirin) 81 mg DAILY PO Last administered on 01/05/17 09:19 ; Start 12/24/16 at 09:00 Bisacodyl (Dulcolax Supp) 10 mg PRN DAILY PRN RC CONSTIPATION; Start 12/23/16 at 21:30 Docusate Sodium (Colace) 100 mg BID PO Last administered on 01/05/17 09:19; Start 12/24/16 at 09:00 Famotidine (Pepcid) 20 mg PRN BID PRN PO DYSPEPSIA Last administered on 20:30; Start 12/23/16 at 21:30 Magnesium Hydroxide (Milk Of Magnesia) 2,400 mg PRN DAILY PRN PO CONSTIPATION; Start 12/23/16 at 21:30 Polyethylene Glycol (miraLAX) 17 gm DAILY PO Last administered on 01/05/17 09: 20; Start 12/24/16 at 09:00 Sennosides (Senna) 8.6 mg PRN BID PRN PO CONSTIPATION; Start 12/23/16 at 21:30 Atorvastatin Calcium (Lipitor) 40 mg DAILY PO Last administered on 01/05/17 09: 19; Start 12/24/16 at 09:00 Al Hydroxide/Mg Hydroxide (Mylanta Plus Xs) 15 ml PRN AFTMEALHC PRN PO DYSPEPSIA; Start 12/23/16 at 21:30 Multi-Ingredient Ointment (Analgesic [place]) 1 josiane PRN QID PRN TP MUSCLE PAIN; Start 12/23/16 at 21:30 Olanzapine (ZyPREXA ZYDIS) 2.5 mg PRN Q2HR PRN PO ANXIETY / AGITATION Last administered on 12/28/16 15:39; Start 12/23/16 at 21:30 Risperidone (RisperDAL) 1 mg BID PO Last administered on 12/25/16 19:17; Start 12/24/16 at 21:00; Stop 12/25/16 at 21:44; Status DC Risperidone (RisperDAL) 1 mg HS PO ; Start 12/26/16 at 21:00; Stop 12/26/16 at 21:00; Status DC Risperidone (RisperDAL) 0.5 mg DAILY PO Last administered on 12/26/16 09:33; Start 12/26/16 at 09:00; Stop 12/26/16 at 18:34; Status DC Sertraline HCl (Zoloft) 50 mg DAILY PO Last administered on 01/04/17 08:20; Start 12/26/16 at 09:00; Stop 01/04/17 at 18:44; Status DC Vitamin D (Vitamin D3) 50,000 unit WEEKLY PO Last administered on 01/03/17 08: 56; Start 12/27/16 at 09:00 Mirtazapine (Remeron) 7.5 mg QHS PO Last administered on 12/26/16 21:14; Start 12/26/16 at 21:00; Stop 12/27/16 at 18:37; Status DC Quetiapine Fumarate (SEROquel) 12.5 mg BID92 PO Last administered on 12/28/16 14:07; Start 12/27/16 at 09:00; Stop 12/28/16 at 18:51; Status DC Quetiapine Fumarate (SEROquel) 25 mg HS PO Last administered on 12/26/16 21:13 ; Start 12/26/16 at 21:00; Stop 12/27/16 at 18:37; Status DC Mirtazapine (Remeron) 15 mg QHS PO Last administered on 01/04/17 20:01; Start 12/27/16 at 21:00 Quetiapine Fumarate (SEROquel) 50 mg HS PO Last administered on 12/27/16 19:36 ; Start 12/27/16 at 21:00; Stop 12/28/16 at 18:51; Status DC Trazodone HCl (Desyrel) 50 mg QHS PO Last administered on 12/27/16 19:36; Start 12/27/16 at 21:00; Stop 12/28/16 at 18:53; Status DC Trazodone HCl (Desyrel) 50 mg PRN DAILY PRN PO INSOMNIA, MAY REPEAT IN 1HR; Start 12/27/16 at 18:45 Trazodone HCl (Desyrel) 50 mg PRN QHS PRN PO INSOMNIA, MAY REPEAT X1; Start at 13:15; Stop 12/28/16 at 18:53; Status DC Lorazepam (Ativan Intensol) 2 mg PRN Q2HR PRN SL ANXIETY / AGITATION; Start at 15:30; Stop 12/28/16 at 15:37; Status DC Lorazepam (Ativan Intensol) 0.5 mg PRN Q2HR PRN SL ANXIETY / AGITATION Last administered on 12/28/16 15:46; Start 12/28/16 at 15:45 Quetiapine Fumarate (SEROquel) 75 mg HS PO Last administered on 01/04/17 20:02 ; Start 12/28/16 at 21:00 Quetiapine Fumarate (SEROquel) 50 mg BID92 PO Last administered on 01/05/17 13: 34; Start 12/29/16 at 09:00 Trazodone HCl (Desyrel) 100 mg HS PO Last administered on 01/04/17 20:01; Start 12/28/16 at 21:00 Trazodone HCl (Desyrel) 100 mg PRN QHS PRN PO INSOMNIA MAY REPEAT X1 Last administered on 12/28/16 19:48; Start 12/28/16 at 19:00 Valproic Acid (Depakene) 250 mg BID PO Last administered on 01/05/17 09:18; Start 12/28/16 at 21:00 Cyanocobalamin (Vitamin B-12) 1,000 mcg DAILY PO Last administered on 01/05/17 09:19; Start 01/04/17 at 09:00 Sertraline HCl (Zoloft) 75 mg DAILY PO Last administered on 01/05/17 09:20; Start 01/05/17 at 09:00 Active Scripts Active Reported Haldol (Haloperidol Lactate) 5 Mg/1 Ml Ampul 2 Mg SUBCUT PRN Q4HRS PRN Famotidine 20 Mg Tablet 20 Mg PO PRN BID PRN Senna (Sennosides) 8.6 Mg Tablet 8.6 Mg PO PRN BID PRN Milk Of Magnesia (Magnesium Hydroxide) 400 Mg/5 Ml Oral.susp 2,400 Mg PO PRN DAILY PRN Dulcolax (Bisacodyl) 10 Mg Supp.rect 10 Mg RC PRN DAILY Tylenol (Acetaminophen) 325 Mg Tablet 650 Mg PO Q4HRS PRN Risperidone 1 Mg/1 Ml Disp.syrin 1 Mg PO BID Polyethylene Glycol 3350 255 Gm Powder 17 Gm PO DAILY Docusate Sodium 100 Mg Capsule 100 Mg PO BID Atorvastatin Calcium 40 Mg Tablet 40 Mg PO DAILY Aspirin 81 Mg Tab.chew 81 Mg PO DAILY Diagnosis: Problems: (1) Anxiety disorder (2) Dementia, vascular, with delusions (3) Dementia, vascular, with depression (4) Impulse control disorder RELL PUENTE MD Jan 05, 2017 19:46
[2017-01-05] MEDS: MIRTAZAPINE 15 MG TABLET PO SCH (20:41)
[2017-01-05] MEDS: traZODone 100 MG TABLET. PO SCH (20:42)
--- NOTE | 2017-01-05 21:30 | NUR ---
Behavior Intervention Response and Plan: BIRP Note: Behavior: Assumed Care of patient, patient located in Patient Room at shift change. Patient exhibited the following behavior Disorganized, Anxious, Restless. Brief assessment on rounds of vital signs, medication needs, lab studies, and pain. Treatment plan problems 1 & 2. Intervention: Patient assessed and the following interventions initiated safety checks 15 Minute Checks Cognitive Assessment , Head to toe Assessment , Medications. Response: After interactions and interventions patient responded in the following manner, Calm , Appropriate ,Compliant. Continue to assess behaviors and condition will continue to monitor throughout the shift as needed. Patient educated on ADL's, and hand hygiene. 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 Continue to assess patient for changes in above assessment. Monitor for medication needs, pain, and safety concerns. Hourly rounding performed to ensure safe environment.
--- NOTE | 2017-01-06 03:06 | PN ---
DATE: 01/04/2017 SUBJECTIVE: This is a late entry 01/04/2017, covers elements not covered in my initial note of 01/04/2017. I met with the patient evening of 01/04/2017. She is sleeping reasonably well. Appetite is fair. Remains somewhat withdrawn, less anxious, labile, and not aggressive. REVIEW OF SYSTEMS: No CV, , pulmonary, eye, or ENT system symptoms on review. Reliability poor. MENTAL STATUS EXAM: Oriented to herself. Insight, judgment, recent and remote memory, attention, concentration, fund of knowledge poor, consistent with her diagnosis mentioned in my initial note. LABORATORY DATA: Reviewed. IMPRESSION: Unchanged from initial note. PLAN: Continue current psychotropics. Reviewed drug contractions. Risk/benefit ratio favors no further change at this time. I would like to taper the Seroquel, but ___ stability for the last couple of days and would like to wait another day or two before deciding. RELL PUENTE MD DR: BRIONNA/gui JOB#: [id number] / [id number]
[2017-01-06 06:09] VITALS: BP 100/69
--- NOTE | 2017-01-06 09:00 | NUR ---
THERAPEUTIC RECREATION GROUP NOTE TITLE :Group Counting ACTIVITY : Activities and Games GOAL : Increase social interaction, communication. Maintain or improve mental functioning. Decrease restlessness DURATION : 60 minutes RESPONSE : Full participation. Pt. was mostly agreeable, smiling often. She was able to count with the group with and without prompting. She left the group for about 20 minutes during the middle of the session. When she returned, she showed no interest any longer. When asked what her goal for the day was, Pt's sentences did not make complete sense, she nonchalantly gave the impression she wanted to go home and she was ready to leave. She wanted to simply be left alone and . Pt's statement was discussed with Pt's nurse.
[2017-01-06] MEDS: VALPROATE ACID 250 MG/5 ML ORAL SOLUTION PO SCH ×2 (09:12→20:07)
[2017-01-06] MEDS: ASPIRIN 81 MG TAB.CHEW PO SCH (09:13)
[2017-01-06] MEDS: CYANOCOBALAMIN (VITAMIN B-12) 1,000 MCG TABLET. PO SCH (09:13)
[2017-01-06] MEDS: POLYETHYLENE GLYCOL 3350 17 GM PACKET. PO SCH (09:13)
[2017-01-06] MEDS: SERTRALINE 25 MG TABLET. PO SCH (09:13)
[2017-01-06] MEDS: DOCUSATE SODIUM 100 MG CAPSULE PO SCH ×2 (09:13→20:06)
[2017-01-06] MEDS: NICOTINE 21MG PATCH. TD SCH (09:13)
[2017-01-06] MEDS: ATORVASTATIN CALCIUM 20 MG TABLET PO SCH (09:13)
[2017-01-06] MEDS: QUEtiapine 50 MG TABLET. PO SCH ×3 (09:14→20:07)
--- NOTE | 2017-01-06 09:15 | NUR ---
Behavior Intervention Response and Plan: BIRP Note: Behavior: Assumed Care of patient, patient located in Day Room at shift change. Patient exhibited the following behavior Withdrawn, Disorganized, Anxious. Brief assessment on rounds of vital signs, medication needs, lab studies, and pain. Treatment plan problems 1 & 2. Intervention: Patient assessed and the following interventions initiated safety checks 15 Minute Checks Cognitive Assessment , Head to toe Assessment , Medications. Response: After interactions and interventions patient responded in the following manner, Calm , Appropriate ,Compliant. Continue to assess behaviors and condition will continue to monitor throughout the shift as needed. Patient educated on ADL's, and hand hygiene. Plan: Continue to monitor Master Treatment Plan for patient's progress toward short term goals of Decreased Agitation, Decreased Aggression, longterm goals to return to previous living setting vs placement. Continue to assess patient for changes in above assessment. Monitor for medication needs, pain, and safety concerns. Hourly rounding performed to ensure safe environment.
--- NOTE | 2017-01-06 09:45 | NUR ---
SHIRLEY received message from Pt's son, Coy that was left at 1:30 am apologizing for the conversation had w/asmita SW yesterday afternoon. Coy, again, stated he was not made aware of the search for placement and would like for this SW to discontinue sending referrals until he can meet w/asmita SW later this afternoon. Coy stated he is concerned his mother will be "dumped" at just any facility. Coy stated he is willing to add an additional $500, making the available funds $3500 to ensure his mother get's a "nice place". SHIRLEY will plan to meet w/Coy during visiting hours today to further discuss this issue.
--- NOTE | 2017-01-06 11:30 | NUR ---
THERAPEUTIC RECREATION GROUP NOTE TITLE :Movement to Music: Flexibility- In the Dining Room! ACTIVITY : Movement/ Exercise GOAL : Increase morale, attention, flexibility. Decrease stress/anxiety. DURATION : 30 Minutes RESPONSE : Minimal participation. Pt. was with the group the entire time and needed encouragement and prompting to follow along. She did a few stretches.
--- NOTE | 2017-01-06 14:20 | NUR ---
THERAPEUTIC RECREATION GROUP NOTE TITLE :Higher or Lower ACTIVITY : Activities and Games GOAL : Increase social interaction, problem solving. Maintain or improve mental functioning. Decrease restlessness DURATION : 75 minutes RESPONSE : Minimal participation. Pt. was in and out of group. She stated she did not want to particiapte but when encouraged and prompted, she engaged. Her answers were not clear but she was calm and went along with the game.
--- NOTE | 2017-01-06 14:36 | NUR ---
SHIRLEY received call from [facility] of [facility] regarding possible referral. Coy, Pt's son, contacted the facility and requested they contact this SW for referral information and on site screen. Facility to be out on Monday for screen. SW faxed updated referral to facility. SW will follow up.
--- NOTE | 2017-01-06 14:50 | NUR ---
Group Note [facility] Group Type: [employer] Anyone?! Related skills the game requires to personal life experiences. Start Time: 1:30pm End Time: 2:15pm Problem: Depression Purpose: Learn Coping Skills Level of Participation: none w/game Behaviors or Symptoms Observed: Pt. covering self w/blanket Interventions: Directed Focus, problem solving, validation, social skills, reminisce Response: Pt. did join group of peers outside and spoke w/SW, however, stated she only wanted to observe. Pt. did return inside before group over Plan: continue to follow up and encourage participation
[2017-01-06 15:49] VITALS: BP 107/75
[2017-01-06] MEDS: MIRTAZAPINE 15 MG TABLET PO SCH (20:07)
[2017-01-06] MEDS: traZODone 100 MG TABLET. PO SCH (20:07)
--- NOTE | 2017-01-06 20:43 | PDOC ---
Exam Anson Demential Exam: Anson Note: Please also refer to the separate dictated note~for this date of service dictated separately.~Patient seen individually. Discussed the patient with Nursing staff reviewed the chart.~Reviewed interim history and current functioning. Reviewed vital signs,~Labs/ Radiology~and current medications noted below. Continue current treatment with the changes noted in the dictated addendum note Assessment: Vital Signs: Vital Signs Date Time Temp Pulse Resp B/P (MAP) Pulse Ox O2 Delivery O2 Flow Rate FiO2 01/06/17 15:49 97.5 99 17 107/75 (86) 95 01/06/17 06:09 Room Air I&O Intake and Output 01/07/17 07:00 Intake Total 840 ml Balance 840 ml Intake Oral 840 ml Current Medications: Meds: Current Medications Nicotine (Nicoderm Cq 21mg) 1 patch DAILY TD Last administered on 01/06/17 09: 13; Start 12/24/16 at 09:00; Stop 01/07/17 at 09:00 Risperidone (RisperDAL) 1 mg BID PO Last administered on 12/24/16 09:07; Start 12/23/16 at 22:00; Stop 12/24/16 at 16:36; Status DC Acetaminophen (Tylenol) 650 mg PRN Q4HRS PRN PO PAIN / TEMP; Start 12/23/16 at 21:30 Aspirin (Children'S Aspirin) 81 mg DAILY PO Last administered on 01/06/17 09:13 ; Start 12/24/16 at 09:00 Bisacodyl (Dulcolax Supp) 10 mg PRN DAILY PRN RC CONSTIPATION; Start 12/23/16 at 21:30 Docusate Sodium (Colace) 100 mg BID PO Last administered on 01/06/17 20:06; Start 12/24/16 at 09:00 Famotidine (Pepcid) 20 mg PRN BID PRN PO DYSPEPSIA Last administered on 20:30; Start 12/23/16 at 21:30 Magnesium Hydroxide (Milk Of Magnesia) 2,400 mg PRN DAILY PRN PO CONSTIPATION; Start 12/23/16 at 21:30 Polyethylene Glycol (miraLAX) 17 gm DAILY PO Last administered on 01/06/17 09: 13; Start 12/24/16 at 09:00 Sennosides (Senna) 8.6 mg PRN BID PRN PO CONSTIPATION; Start 12/23/16 at 21:30 Atorvastatin Calcium (Lipitor) 40 mg DAILY PO Last administered on 01/06/17 09: 13; Start 12/24/16 at 09:00 Al Hydroxide/Mg Hydroxide (Mylanta Plus Xs) 15 ml PRN AFTMEALHC PRN PO DYSPEPSIA; Start 12/23/16 at 21:30 Multi-Ingredient Ointment (Analgesic [place]) 1 josiane PRN QID PRN TP MUSCLE PAIN; Start 12/23/16 at 21:30 Olanzapine (ZyPREXA ZYDIS) 2.5 mg PRN Q2HR PRN PO ANXIETY / AGITATION Last administered on 12/28/16 15:39; Start 12/23/16 at 21:30 Risperidone (RisperDAL) 1 mg BID PO Last administered on 12/25/16 19:17; Start 12/24/16 at 21:00; Stop 12/25/16 at 21:44; Status DC Risperidone (RisperDAL) 1 mg HS PO ; Start 12/26/16 at 21:00; Stop 12/26/16 at 21:00; Status DC Risperidone (RisperDAL) 0.5 mg DAILY PO Last administered on 12/26/16 09:33; Start 12/26/16 at 09:00; Stop 12/26/16 at 18:34; Status DC Sertraline HCl (Zoloft) 50 mg DAILY PO Last administered on 01/04/17 08:20; Start 12/26/16 at 09:00; Stop 01/04/17 at 18:44; Status DC Vitamin D (Vitamin D3) 50,000 unit WEEKLY PO Last administered on 01/03/17 08: 56; Start 12/27/16 at 09:00 Mirtazapine (Remeron) 7.5 mg QHS PO Last administered on 12/26/16 21:14; Start 12/26/16 at 21:00; Stop 12/27/16 at 18:37; Status DC Quetiapine Fumarate (SEROquel) 12.5 mg BID92 PO Last administered on 12/28/16 14:07; Start 12/27/16 at 09:00; Stop 12/28/16 at 18:51; Status DC Quetiapine Fumarate (SEROquel) 25 mg HS PO Last administered on 12/26/16 21:13 ; Start 12/26/16 at 21:00; Stop 12/27/16 at 18:37; Status DC Mirtazapine (Remeron) 15 mg QHS PO Last administered on 01/06/17 20:07; Start 12/27/16 at 21:00 Quetiapine Fumarate (SEROquel) 50 mg HS PO Last administered on 12/27/16 19:36 ; Start 12/27/16 at 21:00; Stop 12/28/16 at 18:51; Status DC Trazodone HCl (Desyrel) 50 mg QHS PO Last administered on 12/27/16 19:36; Start 12/27/16 at 21:00; Stop 12/28/16 at 18:53; Status DC Trazodone HCl (Desyrel) 50 mg PRN DAILY PRN PO INSOMNIA, MAY REPEAT IN 1HR; Start 12/27/16 at 18:45 Trazodone HCl (Desyrel) 50 mg PRN QHS PRN PO INSOMNIA, MAY REPEAT X1; Start at 13:15; Stop 12/28/16 at 18:53; Status DC Lorazepam (Ativan Intensol) 2 mg PRN Q2HR PRN SL ANXIETY / AGITATION; Start at 15:30; Stop 12/28/16 at 15:37; Status DC Lorazepam (Ativan Intensol) 0.5 mg PRN Q2HR PRN SL ANXIETY / AGITATION Last administered on 12/28/16 15:46; Start 12/28/16 at 15:45 Quetiapine Fumarate (SEROquel) 75 mg HS PO Last administered on 01/06/17 20:07 ; Start 12/28/16 at 21:00 Quetiapine Fumarate (SEROquel) 50 mg BID92 PO Last administered on 01/06/17 13: 57; Start 12/29/16 at 09:00 Trazodone HCl (Desyrel) 100 mg HS PO Last administered on 01/06/17 20:07; Start 12/28/16 at 21:00 Trazodone HCl (Desyrel) 100 mg PRN QHS PRN PO INSOMNIA MAY REPEAT X1 Last administered on 12/28/16 19:48; Start 12/28/16 at 19:00 Valproic Acid (Depakene) 250 mg BID PO Last administered on 01/06/17 20:07; Start 12/28/16 at 21:00 Cyanocobalamin (Vitamin B-12) 1,000 mcg DAILY PO Last administered on 01/06/17 09:13; Start 01/04/17 at 09:00 Sertraline HCl (Zoloft) 75 mg DAILY PO Last administered on 01/06/17 09:13; Start 01/05/17 at 09:00 Nicotine (Nicoderm Cq 14mg) 1 patch DAILY TD ; Start 01/07/17 at 09:00 Active Scripts Active Reported Haldol (Haloperidol Lactate) 5 Mg/1 Ml Ampul 2 Mg SUBCUT PRN Q4HRS PRN Famotidine 20 Mg Tablet 20 Mg PO PRN BID PRN Senna (Sennosides) 8.6 Mg Tablet 8.6 Mg PO PRN BID PRN Milk Of Magnesia (Magnesium Hydroxide) 400 Mg/5 Ml Oral.susp 2,400 Mg PO PRN DAILY PRN Dulcolax (Bisacodyl) 10 Mg Supp.rect 10 Mg RC PRN DAILY Tylenol (Acetaminophen) 325 Mg Tablet 650 Mg PO Q4HRS PRN Risperidone 1 Mg/1 Ml Disp.syrin 1 Mg PO BID Polyethylene Glycol 3350 255 Gm Powder 17 Gm PO DAILY Docusate Sodium 100 Mg Capsule 100 Mg PO BID Atorvastatin Calcium 40 Mg Tablet 40 Mg PO DAILY Aspirin 81 Mg Tab.chew 81 Mg PO DAILY Diagnosis: Problems: (1) Anxiety disorder (2) Dementia, vascular, with delusions (3) Dementia, vascular, with depression (4) Impulse control disorder RELL PUENTE MD Jan 06, 2017 20:43
--- NOTE | 2017-01-06 21:22 | NUR ---
[facility] [place] Note: Behavior: Assumed Care of patient, patient located in Patient Room at shift change. Patient exhibited the following behavior Withdrawn, Disorganized, Anxious. Brief assessment on rounds of vital signs, medication needs, lab studies, and pain. Treatment plan problems 1 & 2. Intervention: Patient assessed and the following interventions initiated safety checks 15 Minute Checks Cognitive Assessment , Head to toe Assessment , Medications. Response: After interactions and interventions patient responded in the following manner, Calm , Appropriate ,Compliant. Continue to assess behaviors and condition will continue to monitor throughout the shift as needed. Patient educated on ADL's, and hand hygiene. 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 Continue to assess patient for changes in above assessment. Monitor for medication needs, pain, and safety concerns. Hourly rounding performed to ensure safe environment.
--- NOTE | 2017-01-07 02:59 | PN ---
DATE: 01/05/2017 This late entry 01/05/2017 covers elements not covered in my initial note of 01/05/2017. SUBJECTIVE: The patient was staffed at a treatment team meeting with the entire team morning of 01/05/2017, seen individually evening of 01/05/2017. Reviewed the patient's history and level of functioning was very good right before the stroke. At this time, she was living alone by herself, mowing her yard, driving, doing everything independently and all of this change fairly dramatically after the CVA once the son found her the next morning. Sleeping about 7 hours. Appetite 60%. She ate no dinner or snack the day before. Gets a little agitated at times, slammed the door, but otherwise less paranoid. No CV, , pulmonary, eye, ENT system symptoms on review. Reliability poor. I met with her in her room. MENTAL STATUS EXAM: Oriented to herself. Insight, judgment, recent and remote memory, attention, concentration, fund of knowledge poor, consistent with her diagnosis mentioned in initial noted. LABORATORY DATA: Reviewed. IMPRESSION: Major neurocognitive disorder, vascular with depression, delusion, behavioral disturbance; anxiety disorder, unspecified; impulse control disorder, unspecified. PLAN: Continue current psychotropics. Valproic acid level is 71. Review drug interactions, risk/benefit ratio favors no further change at this time. RELL PUENTE MD DR: BRIONNA/gui JOB#: [id number] / [id number]
[2017-01-07 06:00] VITALS: BP 101/65
[2017-01-07 07:09] LABS: BASO % 1 % (0-3); EOS # 0.1 x10^3/uL (0.0-0.7); EOS % 2 % (0-3); HEMATOCRIT 39.5 % (36.0-47.0); HEMOGLOBIN 13.4 g/dL (12.0-15.5); LYMPH % 43 % (24-48); MEAN CORPUSCULAR HEMOGLOBIN 32 pg (25-35); MEAN CORPUSCULAR HGB CONC 34 g/dL (31-37); MEAN CORPUSCULAR VOLUME 93 fL (79-100); MONO # 0.5 x10^3/uL (0.0-1.1); MONO % 11 % (0-9); NEUT % 44 % (31-73); PLATELET COUNT 228 x10^3/uL (140-400); RED BLOOD COUNT 4.27 x10^6/uL (3.50-5.40); RED CELL DISTRIBUTION WIDTH 13.4 % (11.5-14.5); WHITE BLOOD COUNT 4.7 x10^3/uL (4.0-11.0)
[2017-01-07 07:25] LABS: ALBUMIN/GLOBULIN RATIO 0.9 (1.0-1.7); CALCIUM 8.6 mg/dL (8.5-10.1); CREATININE 0.7 mg/dL (0.6-1.0); POTASSIUM 4.1 mmol/L (3.5-5.1); TOTAL BILIRUBIN 0.5 mg/dL (0.2-1.0); TOTAL PROTEIN 6.4 g/dL (6.4-8.2)
[2017-01-07] MEDS: SERTRALINE 25 MG TABLET. PO SCH (08:15)
[2017-01-07] MEDS: DOCUSATE SODIUM 100 MG CAPSULE PO SCH ×2 (08:15→19:25)
[2017-01-07] MEDS: ASPIRIN 81 MG TAB.CHEW PO SCH (08:16)
[2017-01-07] MEDS: VALPROATE ACID 250 MG/5 ML ORAL SOLUTION PO SCH ×2 (08:16→19:25)
[2017-01-07] MEDS: ATORVASTATIN CALCIUM 20 MG TABLET PO SCH (08:16)
[2017-01-07] MEDS: CYANOCOBALAMIN (VITAMIN B-12) 1,000 MCG TABLET. PO SCH (08:16)
[2017-01-07] MEDS: QUEtiapine 50 MG TABLET. PO SCH ×3 (08:16→19:26)
[2017-01-07] MEDS: POLYETHYLENE GLYCOL 3350 17 GM PACKET. PO SCH (08:17)
[2017-01-07] MEDS: NICOTINE 14MG PATCH. TD SCH (08:18)
[2017-01-07] MEDS: NICOTINE 21MG PATCH. TD SCH (09:00)
--- NOTE | 2017-01-07 09:30 | NUR ---
Behavior Intervention Response and Plan: BIRP Note: Behavior: Assumed Care of patient, patient located in Hallway at shift change. Patient exhibited the following behavior Restless, Disorganized, Irritable. Brief assessment on rounds of vital signs, medication needs, lab studies, and pain. Treatment plan problems . Intervention: Patient assessed and the following interventions initiated safety checks 15 Minute Checks Cognitive Assessment , Head to toe Assessment , Medications. Response: After interactions and interventions patient responded in the following manner, Agitated , Resistive ,Withdrawn. Continue to assess behaviors and condition will continue to monitor throughout the shift as needed. Patient educated on ADL's, and hand hygiene. 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 Continue to assess patient for changes in above assessment. Monitor for medication needs, pain, and safety concerns. Hourly rounding performed to ensure safe environment.
[2017-01-07 17:23] VITALS: BP 111/76
[2017-01-07] MEDS: traZODone 100 MG TABLET. PO SCH (19:25)
[2017-01-07] MEDS: MIRTAZAPINE 15 MG TABLET PO SCH (19:26)
--- NOTE | 2017-01-07 22:44 | NUR ---
Behavior Intervention Response and Plan: BIRP Note: Behavior: Assumed Care of patient, patient located in Patient Room at shift change. Patient exhibited the following behavior Withdrawn, Disorganized, Irritable. Brief assessment on rounds of vital signs, medication needs, lab studies, and pain. Treatment plan problems 1-2. Intervention: Patient assessed and the following interventions initiated safety checks 15 Minute Checks Cognitive Assessment , Head to toe Assessment , Medications. Response: After interactions and interventions patient responded in the following manner, Calm, Disorganized ,Withdrawn. Continue to assess behaviors and condition will continue to monitor throughout the shift as needed. Patient educated on ADL's, and hand hygiene. Plan: Continue to monitor Master Treatment Plan for patient's progress toward short term goals of Improved Mood, Medication Compliance, rn long term care goals to return to previous living setting vs placement. Continue to assess patient for changes in above assessment. Monitor for medication needs, pain, and safety concerns. Hourly rounding performed to ensure safe environment.
--- NOTE | 2017-01-07 23:13 | PDOC ---
Exam Anson Demential Exam: Anson Note: Please also refer to the separate dictated note~for this date of service dictated separately.~Patient seen individually. Discussed the patient with Nursing staff reviewed the chart.~Reviewed interim history and current functioning. Reviewed vital signs,~Labs/ Radiology~and current medications noted below. Continue current treatment with the changes noted in the dictated addendum note Assessment: Vital Signs: Vital Signs Date Time Temp Pulse Resp B/P (MAP) Pulse Ox O2 Delivery O2 Flow Rate FiO2 01/07/17 17:23 98.2 107 18 111/76 (88) 96 01/07/17 06:00 Room Air I&O Intake and Output 01/08/17 07:00 Intake Total 1080 ml Balance 1080 ml Intake Oral 1080 ml Labs: Laboratory Tests Test 01/07/17 06:33 White Blood Count 4.7 x10^3/uL (4.0-11.0) Red Blood Count 4.27 x10^6/uL (3.50-5.40) Hemoglobin 13.4 g/dL (12.0-15.5) Hematocrit 39.5 % (36.0-47.0) Mean Corpuscular Volume 93 fL (79-100) Mean Corpuscular Hemoglobin 32 pg (25-35) Mean Corpuscular Hemoglobin Concent 34 g/dL (31-37) Red Cell Distribution Width 13.4 % (11.5-14.5) Platelet Count 228 x10^3/uL (140-400) Neutrophils (%) (Auto) 44 % (31-73) Lymphocytes (%) (Auto) 43 % (24-48) Monocytes (%) (Auto) 11 % (0-9) H Eosinophils (%) (Auto) 2 % (0-3) Basophils (%) (Auto) 1 % (0-3) Neutrophils # (Auto) 2.0 x10^3uL (1.8-7.7) Lymphocytes # (Auto) 2.0 x10^3/uL (1.0-4.8) Monocytes # (Auto) 0.5 x10^3/uL (0.0-1.1) Eosinophils # (Auto) 0.1 x10^3/uL (0.0-0.7) Basophils # (Auto) 0.0 x10^3/uL (0.0-0.2) Sodium Level 144 mmol/L (136-145) Potassium Level 4.1 mmol/L (3.5-5.1) Chloride Level 108 mmol/L (98-107) H Carbon Dioxide Level 31 mmol/L (21-32) Anion Gap 5 (6-14) L Blood Urea Nitrogen 11 mg/dL (7-20) Creatinine 0.7 mg/dL (0.6-1.0) Estimated GFR (Cockcroft-Gault) 83.0 BUN/Creatinine Ratio 16 (6-20) Glucose Level 84 mg/dL (70-99) Calcium Level 8.6 mg/dL (8.5-10.1) Total Bilirubin 0.5 mg/dL (0.2-1.0) Aspartate Amino Transferase (AST) 13 U/L (15-37) L Alanine Aminotransferase (ALT) 13 U/L (14-59) L Alkaline Phosphatase 69 U/L (46-116) Total Protein 6.4 g/dL (6.4-8.2) Albumin 3.0 g/dL (3.4-5.0) L Albumin/Globulin Ratio 0.9 (1.0-1.7) L Current Medications: Meds: Current Medications Nicotine (Nicoderm Cq 21mg) 1 patch DAILY TD Last administered on 01/06/17 09: 13; Start 12/24/16 at 09:00; Stop 01/07/17 at 09:00; Status DC Risperidone (RisperDAL) 1 mg BID PO Last administered on 12/24/16 09:07; Start 12/23/16 at 22:00; Stop 12/24/16 at 16:36; Status DC Acetaminophen (Tylenol) 650 mg PRN Q4HRS PRN PO PAIN / TEMP; Start 12/23/16 at 21:30 Aspirin (Children'S Aspirin) 81 mg DAILY PO Last administered on 01/07/17 08:16 ; Start 12/24/16 at 09:00 Bisacodyl (Dulcolax Supp) 10 mg PRN DAILY PRN RC CONSTIPATION; Start 12/23/16 at 21:30 Docusate Sodium (Colace) 100 mg BID PO Last administered on 01/07/17 19:25; Start 12/24/16 at 09:00 Famotidine (Pepcid) 20 mg PRN BID PRN PO DYSPEPSIA Last administered on 20:30; Start 12/23/16 at 21:30 Magnesium Hydroxide (Milk Of Magnesia) 2,400 mg PRN DAILY PRN PO CONSTIPATION; Start 12/23/16 at 21:30 Polyethylene Glycol (miraLAX) 17 gm DAILY PO Last administered on 01/07/17 08: 17; Start 12/24/16 at 09:00 Sennosides (Senna) 8.6 mg PRN BID PRN PO CONSTIPATION; Start 12/23/16 at 21:30 Atorvastatin Calcium (Lipitor) 40 mg DAILY PO Last administered on 01/07/17 08: 16; Start 12/24/16 at 09:00 Al Hydroxide/Mg Hydroxide (Mylanta Plus Xs) 15 ml PRN AFTMEALHC PRN PO DYSPEPSIA; Start 12/23/16 at 21:30 Multi-Ingredient Ointment (Analgesic [place]) 1 josiane PRN QID PRN TP MUSCLE PAIN; Start 12/23/16 at 21:30 Olanzapine (ZyPREXA ZYDIS) 2.5 mg PRN Q2HR PRN PO ANXIETY / AGITATION Last administered on 12/28/16 15:39; Start 12/23/16 at 21:30 Risperidone (RisperDAL) 1 mg BID PO Last administered on 12/25/16 19:17; Start 12/24/16 at 21:00; Stop 12/25/16 at 21:44; Status DC Risperidone (RisperDAL) 1 mg HS PO ; Start 12/26/16 at 21:00; Stop 12/26/16 at 21:00; Status DC Risperidone (RisperDAL) 0.5 mg DAILY PO Last administered on 12/26/16 09:33; Start 12/26/16 at 09:00; Stop 12/26/16 at 18:34; Status DC Sertraline HCl (Zoloft) 50 mg DAILY PO Last administered on 01/04/17 08:20; Start 12/26/16 at 09:00; Stop 01/04/17 at 18:44; Status DC Vitamin D (Vitamin D3) 50,000 unit WEEKLY PO Last administered on 01/03/17 08: 56; Start 12/27/16 at 09:00 Mirtazapine (Remeron) 7.5 mg QHS PO Last administered on 12/26/16 21:14; Start 12/26/16 at 21:00; Stop 12/27/16 at 18:37; Status DC Quetiapine Fumarate (SEROquel) 12.5 mg BID92 PO Last administered on 12/28/16 14:07; Start 12/27/16 at 09:00; Stop 12/28/16 at 18:51; Status DC Quetiapine Fumarate (SEROquel) 25 mg HS PO Last administered on 12/26/16 21:13 ; Start 12/26/16 at 21:00; Stop 12/27/16 at 18:37; Status DC Mirtazapine (Remeron) 15 mg QHS PO Last administered on 01/07/17 19:26; Start 12/27/16 at 21:00 Quetiapine Fumarate (SEROquel) 50 mg HS PO Last administered on 12/27/16 19:36 ; Start 12/27/16 at 21:00; Stop 12/28/16 at 18:51; Status DC Trazodone HCl (Desyrel) 50 mg QHS PO Last administered on 12/27/16 19:36; Start 12/27/16 at 21:00; Stop 12/28/16 at 18:53; Status DC Trazodone HCl (Desyrel) 50 mg PRN DAILY PRN PO INSOMNIA, MAY REPEAT IN 1HR; Start 12/27/16 at 18:45 Trazodone HCl (Desyrel) 50 mg PRN QHS PRN PO INSOMNIA, MAY REPEAT X1; Start at 13:15; Stop 12/28/16 at 18:53; Status DC Lorazepam (Ativan Intensol) 2 mg PRN Q2HR PRN SL ANXIETY / AGITATION; Start at 15:30; Stop 12/28/16 at 15:37; Status DC Lorazepam (Ativan Intensol) 0.5 mg PRN Q2HR PRN SL ANXIETY / AGITATION Last administered on 12/28/16 15:46; Start 12/28/16 at 15:45 Quetiapine Fumarate (SEROquel) 75 mg HS PO Last administered on 01/07/17 19:26 ; Start 12/28/16 at 21:00 Quetiapine Fumarate (SEROquel) 50 mg BID92 PO Last administered on 01/07/17 14: 00; Start 12/29/16 at 09:00 Trazodone HCl (Desyrel) 100 mg HS PO Last administered on 01/07/17 19:25; Start 12/28/16 at 21:00 Trazodone HCl (Desyrel) 100 mg PRN QHS PRN PO INSOMNIA MAY REPEAT X1 Last administered on 12/28/16 19:48; Start 12/28/16 at 19:00 Valproic Acid (Depakene) 250 mg BID PO Last administered on 01/07/17 19:25; Start 12/28/16 at 21:00 Cyanocobalamin (Vitamin B-12) 1,000 mcg DAILY PO Last administered on 01/07/17 08:16; Start 01/04/17 at 09:00 Sertraline HCl (Zoloft) 75 mg DAILY PO Last administered on 01/07/17 08:15; Start 01/05/17 at 09:00 Nicotine (Nicoderm Cq 14mg) 1 patch DAILY TD Last administered on 01/07/17 08: 18; Start 01/07/17 at 09:00 Active Scripts Active Reported Haldol (Haloperidol Lactate) 5 Mg/1 Ml Ampul 2 Mg SUBCUT PRN Q4HRS PRN Famotidine 20 Mg Tablet 20 Mg PO PRN BID PRN Senna (Sennosides) 8.6 Mg Tablet 8.6 Mg PO PRN BID PRN Milk Of Magnesia (Magnesium Hydroxide) 400 Mg/5 Ml Oral.susp 2,400 Mg PO PRN DAILY PRN Dulcolax (Bisacodyl) 10 Mg Supp.rect 10 Mg RC PRN DAILY Tylenol (Acetaminophen) 325 Mg Tablet 650 Mg PO Q4HRS PRN Risperidone 1 Mg/1 Ml Disp.syrin 1 Mg PO BID Polyethylene Glycol 3350 255 Gm Powder 17 Gm PO DAILY Docusate Sodium 100 Mg Capsule 100 Mg PO BID Atorvastatin Calcium 40 Mg Tablet 40 Mg PO DAILY Aspirin 81 Mg Tab.chew 81 Mg PO DAILY Diagnosis: Problems: (1) Anxiety disorder (2) Dementia, vascular, with delusions (3) Dementia, vascular, with depression (4) Impulse control disorder RELL PUENTE MD Jan 07, 2017 23:13
[2017-01-08 06:11] VITALS: BP 96/66
[2017-01-08] MEDS: ASPIRIN 81 MG TAB.CHEW PO SCH (08:18)
[2017-01-08] MEDS: DOCUSATE SODIUM 100 MG CAPSULE PO SCH ×2 (08:18→20:29)
[2017-01-08] MEDS: VALPROATE ACID 250 MG/5 ML ORAL SOLUTION PO SCH ×2 (08:18→20:27)
[2017-01-08] MEDS: ATORVASTATIN CALCIUM 20 MG TABLET PO SCH (08:19)
[2017-01-08] MEDS: CYANOCOBALAMIN (VITAMIN B-12) 1,000 MCG TABLET. PO SCH (08:19)
[2017-01-08] MEDS: SERTRALINE 25 MG TABLET. PO SCH (08:19)
[2017-01-08] MEDS: QUEtiapine 50 MG TABLET. PO SCH ×3 (08:19→20:29)
[2017-01-08] MEDS: NICOTINE 14MG PATCH. TD SCH (08:19)
[2017-01-08] MEDS: POLYETHYLENE GLYCOL 3350 17 GM PACKET. PO SCH (08:20)
--- NOTE | 2017-01-08 09:30 | NUR ---
Behavior Intervention Response and Plan: BIRP Note: Behavior: Assumed Care of patient, patient located in Dining Room at shift change. Patient exhibited the following behavior Restless, Disorganized, Compliant. Brief assessment on rounds of vital signs, medication needs, lab studies, and pain. Treatment plan problems . Intervention: Patient assessed and the following interventions initiated safety checks 15 Minute Checks Cognitive Assessment , Head to toe Assessment , Medications. Response: After interactions and interventions patient responded in the following manner, Delusions , Cooperative ,Anxious. Continue to assess behaviors and condition will continue to monitor throughout the shift as needed. Patient educated on ADL's, and hand hygiene. Plan: Continue to monitor Master Treatment Plan for patient's progress toward short term goals of Improved Mood, Decreased Agitation, correction goals to return to previous living setting vs placement. Continue to assess patient for changes in above assessment. Monitor for medication needs, pain, and safety concerns. Hourly rounding performed to ensure safe environment.
[2017-01-08 16:59] VITALS: BP 88/60
--- NOTE | 2017-01-08 20:11 | PDOC ---
Exam Anson Demential Exam: Anson Note: Please also refer to the separate dictated note~for this date of service dictated separately.~Patient seen individually. Discussed the patient with Nursing staff reviewed the chart.~Reviewed interim history and current functioning. Reviewed vital signs,~Labs/ Radiology~and current medications noted below. Continue current treatment with the changes noted in the dictated addendum note Assessment: Vital Signs: Vital Signs Date Time Temp Pulse Resp B/P (MAP) Pulse Ox O2 Delivery O2 Flow Rate FiO2 01/08/17 16:59 98.9 91 18 88/60 (69) 96 01/08/17 06:11 Room Air I&O Intake and Output 01/09/17 07:00 Intake Total 600 ml Balance 600 ml Intake Oral 600 ml Current Medications: Meds: Current Medications Nicotine (Nicoderm Cq 21mg) 1 patch DAILY TD Last administered on 01/06/17 09: 13; Start 12/24/16 at 09:00; Stop 01/07/17 at 09:00; Status DC Risperidone (RisperDAL) 1 mg BID PO Last administered on 12/24/16 09:07; Start 12/23/16 at 22:00; Stop 12/24/16 at 16:36; Status DC Acetaminophen (Tylenol) 650 mg PRN Q4HRS PRN PO PAIN / TEMP; Start 12/23/16 at 21:30 Aspirin (Children'S Aspirin) 81 mg DAILY PO Last administered on 01/08/17 08: 18; Start 12/24/16 at 09:00 Bisacodyl (Dulcolax Supp) 10 mg PRN DAILY PRN RC CONSTIPATION; Start 12/23/16 at 21:30 Docusate Sodium (Colace) 100 mg BID PO Last administered on 01/08/17 08:18; Start 12/24/16 at 09:00 Famotidine (Pepcid) 20 mg PRN BID PRN PO DYSPEPSIA Last administered on 20:30; Start 12/23/16 at 21:30 Magnesium Hydroxide (Milk Of Magnesia) 2,400 mg PRN DAILY PRN PO CONSTIPATION; Start 12/23/16 at 21:30 Polyethylene Glycol (miraLAX) 17 gm DAILY PO Last administered on 01/08/17 08: 20; Start 12/24/16 at 09:00 Sennosides (Senna) 8.6 mg PRN BID PRN PO CONSTIPATION; Start 12/23/16 at 21:30 Atorvastatin Calcium (Lipitor) 40 mg DAILY PO Last administered on 01/08/17 08 :19; Start 12/24/16 at 09:00 Al Hydroxide/Mg Hydroxide (Mylanta Plus Xs) 15 ml PRN AFTMEALHC PRN PO DYSPEPSIA; Start 12/23/16 at 21:30 Multi-Ingredient Ointment (Analgesic [place]) 1 josiane PRN QID PRN TP MUSCLE PAIN; Start 12/23/16 at 21:30 Olanzapine (ZyPREXA ZYDIS) 2.5 mg PRN Q2HR PRN PO ANXIETY / AGITATION Last administered on 12/28/16 15:39; Start 12/23/16 at 21:30 Risperidone (RisperDAL) 1 mg BID PO Last administered on 12/25/16 19:17; Start 12/24/16 at 21:00; Stop 12/25/16 at 21:44; Status DC Risperidone (RisperDAL) 1 mg HS PO ; Start 12/26/16 at 21:00; Stop 12/26/16 at 21:00; Status DC Risperidone (RisperDAL) 0.5 mg DAILY PO Last administered on 12/26/16 09:33; Start 12/26/16 at 09:00; Stop 12/26/16 at 18:34; Status DC Sertraline HCl (Zoloft) 50 mg DAILY PO Last administered on 01/04/17 08:20; Start 12/26/16 at 09:00; Stop 01/04/17 at 18:44; Status DC Vitamin D (Vitamin D3) 50,000 unit WEEKLY PO Last administered on 01/03/17 08: 56; Start 12/27/16 at 09:00 Mirtazapine (Remeron) 7.5 mg QHS PO Last administered on 12/26/16 21:14; Start 12/26/16 at 21:00; Stop 12/27/16 at 18:37; Status DC Quetiapine Fumarate (SEROquel) 12.5 mg BID92 PO Last administered on 12/28/16 14:07; Start 12/27/16 at 09:00; Stop 12/28/16 at 18:51; Status DC Quetiapine Fumarate (SEROquel) 25 mg HS PO Last administered on 12/26/16 21:13 ; Start 12/26/16 at 21:00; Stop 12/27/16 at 18:37; Status DC Mirtazapine (Remeron) 15 mg QHS PO Last administered on 01/07/17 19:26; Start 12/27/16 at 21:00 Quetiapine Fumarate (SEROquel) 50 mg HS PO Last administered on 12/27/16 19:36 ; Start 12/27/16 at 21:00; Stop 12/28/16 at 18:51; Status DC Trazodone HCl (Desyrel) 50 mg QHS PO Last administered on 12/27/16 19:36; Start 12/27/16 at 21:00; Stop 12/28/16 at 18:53; Status DC Trazodone HCl (Desyrel) 50 mg PRN DAILY PRN PO INSOMNIA, MAY REPEAT IN 1HR; Start 12/27/16 at 18:45 Trazodone HCl (Desyrel) 50 mg PRN QHS PRN PO INSOMNIA, MAY REPEAT X1; Start at 13:15; Stop 12/28/16 at 18:53; Status DC Lorazepam (Ativan Intensol) 2 mg PRN Q2HR PRN SL ANXIETY / AGITATION; Start at 15:30; Stop 12/28/16 at 15:37; Status DC Lorazepam (Ativan Intensol) 0.5 mg PRN Q2HR PRN SL ANXIETY / AGITATION Last administered on 12/28/16 15:46; Start 12/28/16 at 15:45 Quetiapine Fumarate (SEROquel) 75 mg HS PO Last administered on 01/07/17 19:26 ; Start 12/28/16 at 21:00 Quetiapine Fumarate (SEROquel) 50 mg BID92 PO Last administered on 01/08/17 13 :28; Start 12/29/16 at 09:00 Trazodone HCl (Desyrel) 100 mg HS PO Last administered on 01/07/17 19:25; Start 12/28/16 at 21:00 Trazodone HCl (Desyrel) 100 mg PRN QHS PRN PO INSOMNIA MAY REPEAT X1 Last administered on 12/28/16 19:48; Start 12/28/16 at 19:00 Valproic Acid (Depakene) 250 mg BID PO Last administered on 01/08/17 08:18; Start 12/28/16 at 21:00 Cyanocobalamin (Vitamin B-12) 1,000 mcg DAILY PO Last administered on 08:19; Start 01/04/17 at 09:00 Sertraline HCl (Zoloft) 75 mg DAILY PO Last administered on 01/08/17 08:19; Start 01/05/17 at 09:00 Nicotine (Nicoderm Cq 14mg) 1 patch DAILY TD Last administered on 01/08/17 08: 19; Start 01/07/17 at 09:00 Active Scripts Active Reported Haldol (Haloperidol Lactate) 5 Mg/1 Ml Ampul 2 Mg SUBCUT PRN Q4HRS PRN Famotidine 20 Mg Tablet 20 Mg PO PRN BID PRN Senna (Sennosides) 8.6 Mg Tablet 8.6 Mg PO PRN BID PRN Milk Of Magnesia (Magnesium Hydroxide) 400 Mg/5 Ml Oral.susp 2,400 Mg PO PRN DAILY PRN Dulcolax (Bisacodyl) 10 Mg Supp.rect 10 Mg RC PRN DAILY Tylenol (Acetaminophen) 325 Mg Tablet 650 Mg PO Q4HRS PRN Risperidone 1 Mg/1 Ml Disp.syrin 1 Mg PO BID Polyethylene Glycol 3350 255 Gm Powder 17 Gm PO DAILY Docusate Sodium 100 Mg Capsule 100 Mg PO BID Atorvastatin Calcium 40 Mg Tablet 40 Mg PO DAILY Aspirin 81 Mg Tab.chew 81 Mg PO DAILY Diagnosis: Problems: (1) Anxiety disorder (2) Dementia, vascular, with delusions (3) Dementia, vascular, with depression (4) Impulse control disorder RELL PUENTE MD Jan 08, 2017 20:11
[2017-01-08] MEDS: MIRTAZAPINE 15 MG TABLET PO SCH (20:29)
[2017-01-08] MEDS: traZODone 100 MG TABLET. PO SCH (20:29)
--- NOTE | 2017-01-08 23:11 | NUR ---
Behavior Intervention Response and Plan: BIRP Note: Behavior: Assumed Care of patient, patient located in Patient Room at shift change. Patient exhibited the following behavior Irritable, Resistive, Sarcastic. Brief assessment on rounds of vital signs, medication needs, lab studies, and pain. Treatment plan problems 1-2. Intervention: Patient assessed and the following interventions initiated safety checks 15 Minute Checks Cognitive Assessment , Head to toe Assessment , Medications. Response: After interactions and interventions patient responded in the following manner, Withdrawn , Resistive ,Sarcastic. Continue to assess behaviors and condition will continue to monitor throughout the shift as needed. Patient educated on ADL's, and hand hygiene. Plan: Continue to monitor Master Treatment Plan for patient's progress toward short term goals of Decreased Agitation, Improved Mood, nursing home goals to return to previous living setting vs placement. Continue to assess patient for changes in above assessment. Monitor for medication needs, pain, and safety concerns. Hourly rounding performed to ensure safe environment.
--- NOTE | 2017-01-08 23:53 | PN ---
DATE: 01/07/2017 SUBJECTIVE: This is a late entry 01/07/2017, covers elements not covered in my initial note of . The patient was seen individually evening of 01/07/2017. Discussed with staff and reviewed the chart. The patient slept 6 hours previous evening, somewhat withdrawn, and compliant with medications. Her son, Coy came to visit, but gave no feedback to the nursing staff, but apparently the visit went well. She has been less labile coming out more for activities and meals. Less withdrawn to her room. REVIEW OF SYSTEMS: No CV, , pulmonary, eye, or ENT system symptoms on review. Reliability is poor. MENTAL STATUS EXAM: Oriented to herself. Insight, judgment, recent and remote memory, attention, concentration, and fund of knowledge poor consistent with her diagnosis mentioned in my initial note. LABORATORY DATA: Reviewed. PLAN: Continue current psychotropics. Valproic acid level therapeutic at 71. I had considered reducing Seroquel, but I really think we should wait consolidate on gains and this can be reduced later as an outpatient at the nursing facility. Reviewed drug interactions. Risk/benefit ratio favors no further change at this time. MAN Ketan PUENTE MD DR: BRIONNA/gui JOB#: [id number] / [id number]
[2017-01-09] MEDS: CYANOCOBALAMIN (VITAMIN B-12) 1,000 MCG TABLET. PO SCH (09:00)
--- NOTE | 2017-01-09 09:00 | NUR ---
THERAPEUTIC RECREATION GROUP NOTE TITLE :01/09 [facility] ACTIVITY : Social Events and Holidays GOAL : Facilitate sense of belonging and well-being, increase socialization and social skills. Incorporate traditions. DURATION : 50 Minutes RESPONSE : No participation
[2017-01-09] MEDS: DOCUSATE SODIUM 100 MG CAPSULE PO SCH ×2 (09:32→19:41)
[2017-01-09] MEDS: ASPIRIN 81 MG TAB.CHEW PO SCH (09:32)
[2017-01-09] MEDS: VALPROATE ACID 250 MG/5 ML ORAL SOLUTION PO SCH ×2 (09:32→19:41)
[2017-01-09] MEDS: CHOLECALCIFEROL (VITAMIN D3) 50,000 UNIT CAPSULE PO SCH (09:32)
[2017-01-09] MEDS: QUEtiapine 50 MG TABLET. PO SCH ×3 (09:33→19:41)
[2017-01-09] MEDS: POLYETHYLENE GLYCOL 3350 17 GM PACKET. PO SCH (09:33)
[2017-01-09] MEDS: SERTRALINE 25 MG TABLET. PO SCH (09:33)
[2017-01-09] MEDS: ATORVASTATIN CALCIUM 20 MG TABLET PO SCH (09:33)
[2017-01-09] MEDS: NICOTINE 14MG PATCH. TD SCH (09:33)
[2017-01-09 09:44] VITALS: BP 131/74
--- NOTE | 2017-01-09 11:33 | NUR ---
Behavior Intervention Response and Plan: BIRP Note: Behavior: Assumed Care of patient, patient located in Hallway at shift change. Patient exhibited the following behavior Disorganized, Wandering, Non Compliant with Meds. Brief assessment on rounds of vital signs, medication needs, lab studies, and pain. Treatment plan problems 1-2. Intervention: Patient assessed and the following interventions initiated safety checks 15 Minute Checks Cognitive Assessment , Head to toe Assessment , Medications. Response: After interactions and interventions patient responded in the following manner, Withdrawn , Non Compliant with Meds ,Disorganized. Continue to assess behaviors and condition will continue to monitor throughout the shift as needed. Patient educated on ADL's, and hand hygiene. Plan: Continue to monitor Master Treatment Plan for patient's progress toward short term goals of Medication Compliance, Improved Mood, half-way goals to return to previous living setting vs placement. Continue to assess patient for changes in above assessment. Monitor for medication needs, pain, and safety concerns. Hourly rounding performed to ensure safe environment.
--- NOTE | 2017-01-09 12:40 | PN ---
DATE: 01/06/2017 This late entry of 01/06/2017 covers elements not covered in my initial note of 01/06/2017. SUBJECTIVE: I met with the patient the evening of 01/06/2017. Per nursing report, the patient was withdrawn in the morning, depressed, spending much time in her room, came out in the afternoon and evening, and I met with her in the [facility] area. REVIEW OF SYSTEMS: No CV, , pulmonary, eye, ENT system symptoms on review, reliability poor. MENTAL STATUS EXAMINATION: Oriented to herself, pleasant, verbal. Insight, judgment, recent and remote memory, attention, concentration, fund of knowledge poor, consistent with her diagnosis as mentioned in my initial note. LABORATORY DATA: Reviewed. PLAN: Continue current psychotropics. She seemed to be responding, and I prefer not to reduce the Seroquel just yet though I would like to reduce it just as soon possible, it may end up being once she is discharged. Reviewed drug interactions, risk/benefit ratio favors no further change for now. RELL PUENTE MD DR: BRIONNA/gui JOB#: [id number] / [id number]
--- NOTE | 2017-01-09 12:43 | NUR ---
Pt exit seeking, guarding the door. Pt became increasingly anxious with redirection, almost running down the boyer. PRN Nitinis administered in pt's tea at lunch. Will continue to monitor.
--- NOTE | 2017-01-09 14:05 | NUR ---
THERAPEUTIC RECREATION GROUP NOTE TITLE :Poker-Outside ACTIVITY : Activities and Games GOAL : Increase social interaction, problem solving. Maintain or improve mental functioning. Decrease restlessness DURATION : 60 minutes RESPONSE : Full participation. Pt. was unorganized but pleasant, smiling most of the time. She needed constant prompting and assistance making decisions/bets throughout the card game. She was able to take verbal direction well. She attempted to leave during the middle of group but with encouragement from other patients, she stayed and played until the end. "
--- NOTE | 2017-01-09 14:46 | NUR ---
SW received call from [facility] regarding on site screen. They were to eval PT. today, however, will wait til possibly Monday as they are unsure if they can accept Pt. at this time due to behaviors reported in the notes sent last week. SHIRLEY faxed updated weekend notes for their review and will wait for contact from them in the am regarding on site screen.
--- NOTE | 2017-01-09 15:02 | NUR ---
Group Note SB Group Type: 01/09 Remembrance & other Historical Events in Lifetime Start Time: 1:00pm End Time: 2:00pm Problem: Depression Purpose: Express Feelings Level of Participation: High Behaviors or Symptoms Observed: Pt. excited about time outside Interventions: Reminiscence Response: Pt. able to include self in group discussion. Pt. checked on others as far as their desire to remain in the sun or be moved to the shade. Very appropriate w/group Plan: continue to monitor and encourage participation
[2017-01-09 16:06] VITALS: BP 109/71
[2017-01-09] MEDS: MIRTAZAPINE 15 MG TABLET PO SCH (19:41)
[2017-01-09] MEDS: traZODone 100 MG TABLET. PO SCH (19:43)
--- NOTE | 2017-01-09 19:52 | PDOC ---
Exam Anson Demential Exam: Anson Note: Please also refer to the separate dictated note~for this date of service dictated separately.~Patient seen individually. Discussed the patient with Nursing staff reviewed the chart.~Reviewed interim history and current functioning. Reviewed vital signs,~Labs/ Radiology~and current medications noted below. Continue current treatment with the changes noted in the dictated addendum note Assessment: Vital Signs: Vital Signs Date Time Temp Pulse Resp B/P (MAP) Pulse Ox O2 Delivery O2 Flow Rate FiO2 01/09/17 16:06 98.1 91 18 109/71 (84) 96 01/08/17 06:11 Room Air I&O Intake and Output 01/10/17 07:00 Intake Total 840 ml Balance 840 ml Intake Oral 840 ml Current Medications: Meds: Current Medications Nicotine (Nicoderm Cq 21mg) 1 patch DAILY TD Last administered on 01/06/17 09: 13; Start 12/24/16 at 09:00; Stop 01/07/17 at 09:00; Status DC Risperidone (RisperDAL) 1 mg BID PO Last administered on 12/24/16 09:07; Start 12/23/16 at 22:00; Stop 12/24/16 at 16:36; Status DC Acetaminophen (Tylenol) 650 mg PRN Q4HRS PRN PO PAIN / TEMP; Start 12/23/16 at 21:30 Aspirin (Children'S Aspirin) 81 mg DAILY PO Last administered on 01/09/17 09: 32; Start 12/24/16 at 09:00 Bisacodyl (Dulcolax Supp) 10 mg PRN DAILY PRN RC CONSTIPATION; Start 12/23/16 at 21:30 Docusate Sodium (Colace) 100 mg BID PO Last administered on 01/09/17 19:41; Start 12/24/16 at 09:00 Famotidine (Pepcid) 20 mg PRN BID PRN PO DYSPEPSIA Last administered on 20:30; Start 12/23/16 at 21:30 Magnesium Hydroxide (Milk Of Magnesia) 2,400 mg PRN DAILY PRN PO CONSTIPATION; Start 12/23/16 at 21:30 Polyethylene Glycol (miraLAX) 17 gm DAILY PO Last administered on 01/09/17 09: 33; Start 12/24/16 at 09:00 Sennosides (Senna) 8.6 mg PRN BID PRN PO CONSTIPATION; Start 12/23/16 at 21:30 Atorvastatin Calcium (Lipitor) 40 mg DAILY PO Last administered on 01/09/17 09 :33; Start 12/24/16 at 09:00 Al Hydroxide/Mg Hydroxide (Mylanta Plus Xs) 15 ml PRN AFTMEALHC PRN PO DYSPEPSIA; Start 12/23/16 at 21:30 Multi-Ingredient Ointment (Analgesic [place]) 1 josiane PRN QID PRN TP MUSCLE PAIN; Start 12/23/16 at 21:30 Olanzapine (ZyPREXA ZYDIS) 2.5 mg PRN Q2HR PRN PO ANXIETY / AGITATION Last administered on 12/28/16 15:39; Start 12/23/16 at 21:30 Risperidone (RisperDAL) 1 mg BID PO Last administered on 12/25/16 19:17; Start 12/24/16 at 21:00; Stop 12/25/16 at 21:44; Status DC Risperidone (RisperDAL) 1 mg HS PO ; Start 12/26/16 at 21:00; Stop 12/26/16 at 21:00; Status DC Risperidone (RisperDAL) 0.5 mg DAILY PO Last administered on 12/26/16 09:33; Start 12/26/16 at 09:00; Stop 12/26/16 at 18:34; Status DC Sertraline HCl (Zoloft) 50 mg DAILY PO Last administered on 01/04/17 08:20; Start 12/26/16 at 09:00; Stop 01/04/17 at 18:44; Status DC Vitamin D (Vitamin D3) 50,000 unit WEEKLY PO Last administered on 01/09/17 09: 32; Start 12/27/16 at 09:00 Mirtazapine (Remeron) 7.5 mg QHS PO Last administered on 12/26/16 21:14; Start 12/26/16 at 21:00; Stop 12/27/16 at 18:37; Status DC Quetiapine Fumarate (SEROquel) 12.5 mg BID92 PO Last administered on 12/28/16 14:07; Start 12/27/16 at 09:00; Stop 12/28/16 at 18:51; Status DC Quetiapine Fumarate (SEROquel) 25 mg HS PO Last administered on 12/26/16 21:13 ; Start 12/26/16 at 21:00; Stop 12/27/16 at 18:37; Status DC Mirtazapine (Remeron) 15 mg QHS PO Last administered on 01/09/17 19:41; Start 12/27/16 at 21:00 Quetiapine Fumarate (SEROquel) 50 mg HS PO Last administered on 12/27/16 19:36 ; Start 12/27/16 at 21:00; Stop 12/28/16 at 18:51; Status DC Trazodone HCl (Desyrel) 50 mg QHS PO Last administered on 12/27/16 19:36; Start 12/27/16 at 21:00; Stop 12/28/16 at 18:53; Status DC Trazodone HCl (Desyrel) 50 mg PRN DAILY PRN PO INSOMNIA, MAY REPEAT IN 1HR; Start 12/27/16 at 18:45 Trazodone HCl (Desyrel) 50 mg PRN QHS PRN PO INSOMNIA, MAY REPEAT X1; Start at 13:15; Stop 12/28/16 at 18:53; Status DC Lorazepam (Ativan Intensol) 2 mg PRN Q2HR PRN SL ANXIETY / AGITATION; Start at 15:30; Stop 12/28/16 at 15:37; Status DC Lorazepam (Ativan Intensol) 0.5 mg PRN Q2HR PRN SL ANXIETY / AGITATION Last administered on 12/28/16 15:46; Start 12/28/16 at 15:45 Quetiapine Fumarate (SEROquel) 75 mg HS PO Last administered on 01/09/17 19:41 ; Start 12/28/16 at 21:00 Quetiapine Fumarate (SEROquel) 50 mg BID92 PO Last administered on 01/09/17 15 :11; Start 12/29/16 at 09:00 Trazodone HCl (Desyrel) 100 mg HS PO Last administered on 01/09/17 19:43; Start 12/28/16 at 21:00 Trazodone HCl (Desyrel) 100 mg PRN QHS PRN PO INSOMNIA MAY REPEAT X1 Last administered on 12/28/16 19:48; Start 12/28/16 at 19:00 Valproic Acid (Depakene) 250 mg BID PO Last administered on 01/09/17 19:41; Start 12/28/16 at 21:00 Cyanocobalamin (Vitamin B-12) 1,000 mcg DAILY PO Last administered on 09:00; Start 01/04/17 at 09:00 Sertraline HCl (Zoloft) 75 mg DAILY PO Last administered on 01/09/17 09:33; Start 01/05/17 at 09:00 Nicotine (Nicoderm Cq 14mg) 1 patch DAILY TD Last administered on 01/09/17 09: 33; Start 01/07/17 at 09:00 Active Scripts Active Reported Haldol (Haloperidol Lactate) 5 Mg/1 Ml Ampul 2 Mg SUBCUT PRN Q4HRS PRN Famotidine 20 Mg Tablet 20 Mg PO PRN BID PRN Senna (Sennosides) 8.6 Mg Tablet 8.6 Mg PO PRN BID PRN Milk Of Magnesia (Magnesium Hydroxide) 400 Mg/5 Ml Oral.susp 2,400 Mg PO PRN DAILY PRN Dulcolax (Bisacodyl) 10 Mg Supp.rect 10 Mg RC PRN DAILY Tylenol (Acetaminophen) 325 Mg Tablet 650 Mg PO Q4HRS PRN Risperidone 1 Mg/1 Ml Disp.syrin 1 Mg PO BID Polyethylene Glycol 3350 255 Gm Powder 17 Gm PO DAILY Docusate Sodium 100 Mg Capsule 100 Mg PO BID Atorvastatin Calcium 40 Mg Tablet 40 Mg PO DAILY Aspirin 81 Mg Tab.chew 81 Mg PO DAILY Diagnosis: Problems: (1) Anxiety disorder (2) Dementia, vascular, with delusions (3) Dementia, vascular, with depression (4) Impulse control disorder RELL PUENTE MD Jan 09, 2017 19:52
--- NOTE | 2017-01-09 20:45 | NUR ---
Behavior Intervention Response and Plan: BIRP Note: Behavior: Assumed Care of patient, patient located in Patient Room at shift change. Patient exhibited the following behavior Withdrawn, Calm, Compliant. Brief assessment on rounds of vital signs, medication needs, lab studies, and pain. Treatment plan problems 1-2. Intervention: Patient assessed and the following interventions initiated safety checks 15 Minute Checks Cognitive Assessment , Head to toe Assessment , Medications. Response: After interactions and interventions patient responded in the following manner, Disorganized , Compliant ,Cooperative. Continue to assess behaviors and condition will continue to monitor throughout the shift as needed. Patient educated on ADL's, and hand hygiene. Plan: Continue to monitor Master Treatment Plan for patient's progress toward short term goals of Decreased Agitation, Improved Mood, fci goals to return to previous living setting vs placement. Continue to assess patient for changes in above assessment. Monitor for medication needs, pain, and safety concerns. Hourly rounding performed to ensure safe environment.
--- NOTE | 2017-01-10 01:25 | PN ---
DATE: 01/08/2017 This late entry of 01/08/2017 covers elements not covered in my initial note of 01/08/2017. SUBJECTIVE: I met with the patient on 3 separate occasions, the evening of 01/08/2017. Her niece visited her the evening of 01/08/2017 and since then, the patient has been anxious, restless, trying to leave, looking for exit door and that is what she was fixated on as I met with her. She held my hand, was wanting me to buzz open the exit door, difficult to understand what she is saying. The rest of the day had gone well till after the visit from the niece, which perhaps reminded her where she was, in fact she wants to live here. She has been; otherwise, wandering. REVIEW OF SYSTEMS: No CV, , pulmonary, eye, ENT system symptoms on review. Reliability poor. MENTAL STATUS EXAM: Oriented to herself. Insight, judgment, recent and remote memory, attention, concentration, fund of knowledge poor, consistent with her diagnosis mentioned in my initial note. LABORATORY DATA: Reviewed. PLAN: Continue current psychotropics mentioned in my initial note. Reviewed drug interactions. Risk/benefit ratio favors no further change. Agitation this evening of 01/08/2017 after the niece left was probably a reaction to the visit from family and I would rather not change her psychotropics just yet, but we will reassess on 01/09/2017. RELL PUENTE MD DR: BRIONNA/gui JOB#: [id number] / [id number]
[2017-01-10 06:08] VITALS: BP 111/73
[2017-01-10] MEDS: CHOLECALCIFEROL (VITAMIN D3) 50,000 UNIT CAPSULE PO SCH (09:00)
--- NOTE | 2017-01-10 09:00 | NUR ---
THERAPEUTIC RECREATION GROUP NOTE TITLE :Coloring: [place] ACTIVITY : Relaxation GOAL : Decrease stress, elevate mood, increase concentration/attention, encourage awareness DURATION : 60 Minutes RESPONSE : Full participation. Pt. was alert and engaged the entire time. She was able to color neatly and quietly while many distractions were around her. She needed no prompting to stay on task and she was pleasant to have in group.
[2017-01-10] MEDS: POLYETHYLENE GLYCOL 3350 17 GM PACKET. PO SCH (09:27)
[2017-01-10] MEDS: ASPIRIN 81 MG TAB.CHEW PO SCH (09:27)
[2017-01-10] MEDS: CYANOCOBALAMIN (VITAMIN B-12) 1,000 MCG TABLET. PO SCH (09:27)
[2017-01-10] MEDS: QUEtiapine 50 MG TABLET. PO SCH ×3 (09:27→20:14)
[2017-01-10] MEDS: DOCUSATE SODIUM 100 MG CAPSULE PO SCH ×2 (09:27→20:14)
[2017-01-10] MEDS: VALPROATE ACID 250 MG/5 ML ORAL SOLUTION PO SCH ×2 (09:27→20:14)
[2017-01-10] MEDS: ATORVASTATIN CALCIUM 20 MG TABLET PO SCH (09:27)
[2017-01-10] MEDS: NICOTINE 14MG PATCH. TD SCH (09:27)
[2017-01-10] MEDS: SERTRALINE 25 MG TABLET. PO SCH (09:27)
--- NOTE | 2017-01-10 10:26 | NUR ---
Behavior Intervention Response and Plan: BIRP Note: Behavior: Assumed Care of patient, patient located in Day Room at shift change. Patient exhibited the following behavior Calm, Disorganized, Wandering. Brief assessment on rounds of vital signs, medication needs, lab studies, and pain. Treatment plan problems 1-2. Intervention: Patient assessed and the following interventions initiated safety checks 15 Minute Checks Cognitive Assessment , Head to toe Assessment , Medications. Response: After interactions and interventions patient responded in the following manner, Disorganized , Wandering ,Disorganized. Continue to assess behaviors and condition will continue to monitor throughout the shift as needed. Patient educated on ADL's, and hand hygiene. 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 Continue to assess patient for changes in above assessment. Monitor for medication needs, pain, and safety concerns. Hourly rounding performed to ensure safe environment.
--- NOTE | 2017-01-10 10:28 | NUR ---
SHIRLEY contacted Yariel at [facility] regarding possible admit referral. Facility for memory care starts at $4900. SW stated that may be out of family's dietz range. Admissions encouraged SW to send referral anyways and they would be able to sit down w/family to discuss finance options.
--- NOTE | 2017-01-10 12:22 | NUR ---
SHIRLEY received a call from Anh at [facility] [place] who Pt's son was working w/when Pt. was at [facility]. Per Coy's request, admit referral information was faxed to Anh so that she could also look into possible placement for [place]
--- NOTE | 2017-01-10 14:00 | NUR ---
THERAPEUTIC RECREATION GROUP NOTE TITLE :Name that Tune ACTIVITY : Music, Cognitive Stimulation GOAL : Increase socialization, elevate mood, stimulate memory, Maintain or improve cognitive functioning DURATION : 60 minutes RESPONSE : Full participation. Pt. actively listened to the songs and smiled often. She was social and helpful to others. She tapped her foot to the songs.
[2017-01-10 16:07] VITALS: BP 97/66
--- NOTE | 2017-01-10 19:48 | PDOC ---
Exam Anson Demential Exam: Anson Note: Please also refer to the separate dictated note~for this date of service dictated separately.~Patient seen individually. Discussed the patient with Nursing staff reviewed the chart.~Reviewed interim history and current functioning. Reviewed vital signs,~Labs/ Radiology~and current medications noted below. Continue current treatment with the changes noted in the dictated addendum note Assessment: Vital Signs: Vital Signs Date Time Temp Pulse Resp B/P (MAP) Pulse Ox O2 Delivery O2 Flow Rate FiO2 01/10/17 16:07 98.9 86 18 97/66 (76) 94 01/08/17 06:11 Room Air I&O Intake and Output 01/11/17 06:59 Intake Total 1200 ml Balance 1200 ml Intake Oral 1200 ml Current Medications: Meds: Current Medications Nicotine (Nicoderm Cq 21mg) 1 patch DAILY TD Last administered on 01/06/17 09: 13; Start 12/24/16 at 09:00; Stop 01/07/17 at 09:00; Status DC Risperidone (RisperDAL) 1 mg BID PO Last administered on 12/24/16 09:07; Start 12/23/16 at 22:00; Stop 12/24/16 at 16:36; Status DC Acetaminophen (Tylenol) 650 mg PRN Q4HRS PRN PO PAIN / TEMP; Start 12/23/16 at 21:30 Aspirin (Children'S Aspirin) 81 mg DAILY PO Last administered on 01/10/17 09: 27; Start 12/24/16 at 09:00 Bisacodyl (Dulcolax Supp) 10 mg PRN DAILY PRN RC CONSTIPATION; Start 12/23/16 at 21:30 Docusate Sodium (Colace) 100 mg BID PO Last administered on 01/10/17 09:27; Start 12/24/16 at 09:00 Famotidine (Pepcid) 20 mg PRN BID PRN PO DYSPEPSIA Last administered on 20:30; Start 12/23/16 at 21:30 Magnesium Hydroxide (Milk Of Magnesia) 2,400 mg PRN DAILY PRN PO CONSTIPATION; Start 12/23/16 at 21:30 Polyethylene Glycol (miraLAX) 17 gm DAILY PO Last administered on 01/10/17 09: 27; Start 12/24/16 at 09:00 Sennosides (Senna) 8.6 mg PRN BID PRN PO CONSTIPATION; Start 12/23/16 at 21:30 Atorvastatin Calcium (Lipitor) 40 mg DAILY PO Last administered on 01/10/17 09 :27; Start 12/24/16 at 09:00 Al Hydroxide/Mg Hydroxide (Mylanta Plus Xs) 15 ml PRN AFTMEALHC PRN PO DYSPEPSIA; Start 12/23/16 at 21:30 Multi-Ingredient Ointment (Analgesic Willard) 1 josiane PRN QID PRN TP MUSCLE PAIN; Start 12/23/16 at 21:30 Olanzapine (ZyPREXA ZYDIS) 2.5 mg PRN Q2HR PRN PO ANXIETY / AGITATION Last administered on 12/28/16 15:39; Start 12/23/16 at 21:30 Risperidone (RisperDAL) 1 mg BID PO Last administered on 12/25/16 19:17; Start 12/24/16 at 21:00; Stop 12/25/16 at 21:44; Status DC Risperidone (RisperDAL) 1 mg HS PO ; Start 12/26/16 at 21:00; Stop 12/26/16 at 21:00; Status DC Risperidone (RisperDAL) 0.5 mg DAILY PO Last administered on 12/26/16 09:33; Start 12/26/16 at 09:00; Stop 12/26/16 at 18:34; Status DC Sertraline HCl (Zoloft) 50 mg DAILY PO Last administered on 01/04/17 08:20; Start 12/26/16 at 09:00; Stop 01/04/17 at 18:44; Status DC Vitamin D (Vitamin D3) 50,000 unit WEEKLY PO Last administered on 01/09/17 09: 32; Start 12/27/16 at 09:00 Mirtazapine (Remeron) 7.5 mg QHS PO Last administered on 12/26/16 21:14; Start 12/26/16 at 21:00; Stop 12/27/16 at 18:37; Status DC Quetiapine Fumarate (SEROquel) 12.5 mg BID92 PO Last administered on 12/28/16 14:07; Start 12/27/16 at 09:00; Stop 12/28/16 at 18:51; Status DC Quetiapine Fumarate (SEROquel) 25 mg HS PO Last administered on 12/26/16 21:13 ; Start 12/26/16 at 21:00; Stop 12/27/16 at 18:37; Status DC Mirtazapine (Remeron) 15 mg QHS PO Last administered on 01/09/17 19:41; Start 12/27/16 at 21:00 Quetiapine Fumarate (SEROquel) 50 mg HS PO Last administered on 12/27/16 19:36 ; Start 12/27/16 at 21:00; Stop 12/28/16 at 18:51; Status DC Trazodone HCl (Desyrel) 50 mg QHS PO Last administered on 12/27/16 19:36; Start 12/27/16 at 21:00; Stop 12/28/16 at 18:53; Status DC Trazodone HCl (Desyrel) 50 mg PRN DAILY PRN PO INSOMNIA, MAY REPEAT IN 1HR; Start 12/27/16 at 18:45 Trazodone HCl (Desyrel) 50 mg PRN QHS PRN PO INSOMNIA, MAY REPEAT X1; Start at 13:15; Stop 12/28/16 at 18:53; Status DC Lorazepam (Ativan Intensol) 2 mg PRN Q2HR PRN SL ANXIETY / AGITATION; Start at 15:30; Stop 12/28/16 at 15:37; Status DC Lorazepam (Ativan Intensol) 0.5 mg PRN Q2HR PRN SL ANXIETY / AGITATION Last administered on 12/28/16 15:46; Start 12/28/16 at 15:45 Quetiapine Fumarate (SEROquel) 75 mg HS PO Last administered on 01/09/17 19:41 ; Start 12/28/16 at 21:00 Quetiapine Fumarate (SEROquel) 50 mg BID92 PO Last administered on 01/10/17 14 :59; Start 12/29/16 at 09:00 Trazodone HCl (Desyrel) 100 mg HS PO Last administered on 01/09/17 19:43; Start 12/28/16 at 21:00 Trazodone HCl (Desyrel) 100 mg PRN QHS PRN PO INSOMNIA MAY REPEAT X1 Last administered on 12/28/16 19:48; Start 12/28/16 at 19:00 Valproic Acid (Depakene) 250 mg BID PO Last administered on 01/10/17 09:27; Start 12/28/16 at 21:00 Cyanocobalamin (Vitamin B-12) 1,000 mcg DAILY PO Last administered on 09:27; Start 01/04/17 at 09:00 Sertraline HCl (Zoloft) 75 mg DAILY PO Last administered on 01/10/17 09:27; Start 01/05/17 at 09:00 Nicotine (Nicoderm Cq 14mg) 1 patch DAILY TD Last administered on 01/10/17 09: 27; Start 01/07/17 at 09:00 Active Scripts Active Reported Haldol (Haloperidol Lactate) 5 Mg/1 Ml Ampul 2 Mg SUBCUT PRN Q4HRS PRN Famotidine 20 Mg Tablet 20 Mg PO PRN BID PRN Senna (Sennosides) 8.6 Mg Tablet 8.6 Mg PO PRN BID PRN Milk Of Magnesia (Magnesium Hydroxide) 400 Mg/5 Ml Oral.susp 2,400 Mg PO PRN DAILY PRN Dulcolax (Bisacodyl) 10 Mg Supp.rect 10 Mg RC PRN DAILY Tylenol (Acetaminophen) 325 Mg Tablet 650 Mg PO Q4HRS PRN Risperidone 1 Mg/1 Ml Disp.syrin 1 Mg PO BID Polyethylene Glycol 3350 255 Gm Powder 17 Gm PO DAILY Docusate Sodium 100 Mg Capsule 100 Mg PO BID Atorvastatin Calcium 40 Mg Tablet 40 Mg PO DAILY Aspirin 81 Mg Tab.chew 81 Mg PO DAILY Diagnosis: Problems: (1) Anxiety disorder (2) Dementia, vascular, with delusions (3) Dementia, vascular, with depression (4) Impulse control disorder RELL PUENTE MD Jan 10, 2017 19:48
[2017-01-10] MEDS: MIRTAZAPINE 15 MG TABLET PO SCH (20:14)
[2017-01-10] MEDS: traZODone 100 MG TABLET. PO SCH (20:17)
--- NOTE | 2017-01-10 21:10 | NUR ---
Behavior Intervention Response and Plan: BIRP Note: Behavior: Assumed Care of patient, patient located in Day Room at shift change. Patient exhibited the following behavior Calm, Disorganized, Compliant. Brief assessment on rounds of vital signs, medication needs, lab studies, and pain. Treatment plan problems . Intervention: Patient assessed and the following interventions initiated safety checks 15 Minute Checks Head to toe Assessment , Cognitive Assessment , Medications. Response: After interactions and interventions patient responded in the following manner, Cooperative , Compliant ,Disorganized. Continue to assess behaviors and condition will continue to monitor throughout the shift as needed. Patient educated on ADL's, and hand hygiene. Plan: Continue to monitor Master Treatment Plan for patient's progress toward short term goals of Improved Mood, Medication Compliance, snf goals to return to previous living setting vs placement. Continue to assess patient for changes in above assessment. Monitor for medication needs, pain, and safety concerns. Hourly rounding performed to ensure safe environment.
--- NOTE | 2017-01-11 03:05 | PN ---
DATE: 01/09/2017 This late entry 01/09/2017 covers elements not covered in my initial note of 01/09/2017. SUBJECTIVE: I met with the patient evening of 01/09/2017 in her room. She took her a.m. psychotropic medications, was resisted the night before. During the afternoon, she is quite anxious, exit seeking, received Zyprexa with lunch, did much better after that. Her son Coy visited in the afternoon and discussed transfer to another facility, but she has not been screened by that facility as of 01/09/2017. REVIEW OF SYSTEMS: No CV, , pulmonary, eye, ENT system symptoms on review. Reliability poor. MENTAL STATUS EXAM: Oriented to herself. Insight, judgment, recent and remote memory, attention, concentration, fund of knowledge poor consistent with her diagnosis. LABORATORY DATA: Reviewed. IMPRESSION: Major neurocognitive disorder, vascular with depression, delusion and behavioral disturbance; anxiety disorder, unspecified; impulse control disorder, unspecified. PLAN: Continue psychotropics mentioned in my initial note, Zoloft, Seroquel, Remeron. Depakote is 250 b.i.d. Follow labs level. Adjust further as clinically indicated. RELL PUENTE MD DR: BRIONNA/gui JOB#: [id number] / [id number]
[2017-01-11 06:09] VITALS: BP 100/63
[2017-01-11] MEDS: ATORVASTATIN CALCIUM 20 MG TABLET PO SCH (09:10)
[2017-01-11] MEDS: ASPIRIN 81 MG TAB.CHEW PO SCH (09:11)
[2017-01-11] MEDS: CYANOCOBALAMIN (VITAMIN B-12) 1,000 MCG TABLET. PO SCH (09:11)
[2017-01-11] MEDS: SERTRALINE 25 MG TABLET. PO SCH (09:11)
[2017-01-11] MEDS: NICOTINE 14MG PATCH. TD SCH (09:12)
[2017-01-11] MEDS: POLYETHYLENE GLYCOL 3350 17 GM PACKET. PO SCH (09:12)
[2017-01-11] MEDS: QUEtiapine 50 MG TABLET. PO SCH ×3 (09:12→20:15)
[2017-01-11] MEDS: DOCUSATE SODIUM 100 MG CAPSULE PO SCH ×2 (09:12→20:14)
[2017-01-11] MEDS: DIVALPROEX 125 MG CAP.SPRINK PO SCH ×2 (09:13→20:14)
--- NOTE | 2017-01-11 09:15 | NUR ---
THERAPEUTIC RECREATION GROUP NOTE TITLE :Mood Changers: Laughter, Gratitude, Compliments ACTIVITY : Humor/ Relaxation GOAL : Decrease stress, elevate mood, increase concentration/attention, encourage awareness DURATION : 60 minutes RESPONSE : Full participation. Pt. was alert and engaged the entire time. She actively listened throughout the session. She laughed, contributed to the gratitude discussion, and received/gave compliments appropriately. She was social with another patient towards the end.
--- NOTE | 2017-01-11 10:55 | NUR ---
Behavior Intervention Response and Plan: BIRP Note: Behavior: Assumed Care of patient, patient located in Day Room at shift change. Patient exhibited the following behavior Calm, Disorganized, Cooperative. Brief assessment on rounds of vital signs, medication needs, lab studies, and pain. Treatment plan problems 1-2. Intervention: Patient assessed and the following interventions initiated safety checks 15 Minute Checks Cognitive Assessment , Head to toe Assessment , Medications. Response: After interactions and interventions patient responded in the following manner, Disorganized , Calm ,Cooperative. Continue to assess behaviors and condition will continue to monitor throughout the shift as needed. Patient educated on ADL's, and hand hygiene. Plan: Continue to monitor Master Treatment Plan for patient's progress toward short term goals of Medication Compliance, Improved Mood, alf goals to return to previous living setting vs placement. Continue to assess patient for changes in above assessment. Monitor for medication needs, pain, and safety concerns. Hourly rounding performed to ensure safe environment.
--- NOTE | 2017-01-11 14:10 | NUR ---
THERAPEUTIC RECREATION GROUP NOTE TITLE :ABC's of Leisure ACTIVITY : Leisure Awareness GOAL : Increase knowledge of leisure activities DURATION : 50 Minutes RESPONSE : No participation
--- NOTE | 2017-01-11 15:22 | NUR ---
Group Note [facility] Group Type Anger Map Start Time: 1:10 End Time: 2:10 Problem: Agitation Purpose: Inc Direction following, Increase stimulation, Increased self awareness, socialization Level of Participation: Absent Behaviors or Symptoms Observed: Interventions: Reframing Response: Plan: Group Participation Additional Comments: SW will continue to try to engage pt.
[2017-01-11 16:18] VITALS: BP 127/76
--- NOTE | 2017-01-11 20:00 | PDOC ---
Exam Anson Demential Exam: Anson Note: Please also refer to the separate dictated note~for this date of service dictated separately.~Patient seen individually. Discussed the patient with Nursing staff reviewed the chart.~Reviewed interim history and current functioning. Reviewed vital signs,~Labs/ Radiology~and current medications noted below. Continue current treatment with the changes noted in the dictated addendum note Assessment: Vital Signs: Vital Signs Date Time Temp Pulse Resp B/P (MAP) Pulse Ox O2 Delivery O2 Flow Rate FiO2 01/11/17 16:18 98.4 57 18 127/76 (93) 99 01/08/17 06:11 Room Air I&O Intake and Output 01/12/17 07:00 Intake Total 820 ml Balance 820 ml Intake Oral 820 ml Current Medications: Meds: Current Medications Nicotine (Nicoderm Cq 21mg) 1 patch DAILY TD Last administered on 01/06/17 09: 13; Start 12/24/16 at 09:00; Stop 01/07/17 at 09:00; Status DC Risperidone (RisperDAL) 1 mg BID PO Last administered on 12/24/16 09:07; Start 12/23/16 at 22:00; Stop 12/24/16 at 16:36; Status DC Acetaminophen (Tylenol) 650 mg PRN Q4HRS PRN PO PAIN / TEMP; Start 12/23/16 at 21:30 Aspirin (Children'S Aspirin) 81 mg DAILY PO Last administered on 01/11/17 09: 11; Start 12/24/16 at 09:00 Bisacodyl (Dulcolax Supp) 10 mg PRN DAILY PRN RC CONSTIPATION; Start 12/23/16 at 21:30 Docusate Sodium (Colace) 100 mg BID PO Last administered on 01/11/17 09:12; Start 12/24/16 at 09:00 Famotidine (Pepcid) 20 mg PRN BID PRN PO DYSPEPSIA Last administered on 20:30; Start 12/23/16 at 21:30 Magnesium Hydroxide (Milk Of Magnesia) 2,400 mg PRN DAILY PRN PO CONSTIPATION; Start 12/23/16 at 21:30 Polyethylene Glycol (miraLAX) 17 gm DAILY PO Last administered on 01/11/17 09: 12; Start 12/24/16 at 09:00 Sennosides (Senna) 8.6 mg PRN BID PRN PO CONSTIPATION; Start 12/23/16 at 21:30 Atorvastatin Calcium (Lipitor) 40 mg DAILY PO Last administered on 01/11/17 09 :10; Start 12/24/16 at 09:00 Al Hydroxide/Mg Hydroxide (Mylanta Plus Xs) 15 ml PRN AFTMEALHC PRN PO DYSPEPSIA; Start 12/23/16 at 21:30 Multi-Ingredient Ointment (Analgesic [place]) 1 josiane PRN QID PRN TP MUSCLE PAIN; Start 12/23/16 at 21:30 Olanzapine (ZyPREXA ZYDIS) 2.5 mg PRN Q2HR PRN PO ANXIETY / AGITATION Last administered on 12/28/16 15:39; Start 12/23/16 at 21:30 Risperidone (RisperDAL) 1 mg BID PO Last administered on 12/25/16 19:17; Start 12/24/16 at 21:00; Stop 12/25/16 at 21:44; Status DC Risperidone (RisperDAL) 1 mg HS PO ; Start 12/26/16 at 21:00; Stop 12/26/16 at 21:00; Status DC Risperidone (RisperDAL) 0.5 mg DAILY PO Last administered on 12/26/16 09:33; Start 12/26/16 at 09:00; Stop 12/26/16 at 18:34; Status DC Sertraline HCl (Zoloft) 50 mg DAILY PO Last administered on 01/04/17 08:20; Start 12/26/16 at 09:00; Stop 01/04/17 at 18:44; Status DC Vitamin D (Vitamin D3) 50,000 unit WEEKLY PO Last administered on 01/09/17 09: 32; Start 12/27/16 at 09:00 Mirtazapine (Remeron) 7.5 mg QHS PO Last administered on 12/26/16 21:14; Start 12/26/16 at 21:00; Stop 12/27/16 at 18:37; Status DC Quetiapine Fumarate (SEROquel) 12.5 mg BID92 PO Last administered on 12/28/16 14:07; Start 12/27/16 at 09:00; Stop 12/28/16 at 18:51; Status DC Quetiapine Fumarate (SEROquel) 25 mg HS PO Last administered on 12/26/16 21:13 ; Start 12/26/16 at 21:00; Stop 12/27/16 at 18:37; Status DC Mirtazapine (Remeron) 15 mg QHS PO Last administered on 01/10/17 20:14; Start 12/27/16 at 21:00 Quetiapine Fumarate (SEROquel) 50 mg HS PO Last administered on 12/27/16 19:36 ; Start 12/27/16 at 21:00; Stop 12/28/16 at 18:51; Status DC Trazodone HCl (Desyrel) 50 mg QHS PO Last administered on 12/27/16 19:36; Start 12/27/16 at 21:00; Stop 12/28/16 at 18:53; Status DC Trazodone HCl (Desyrel) 50 mg PRN DAILY PRN PO INSOMNIA, MAY REPEAT IN 1HR; Start 12/27/16 at 18:45 Trazodone HCl (Desyrel) 50 mg PRN QHS PRN PO INSOMNIA, MAY REPEAT X1; Start at 13:15; Stop 12/28/16 at 18:53; Status DC Lorazepam (Ativan Intensol) 2 mg PRN Q2HR PRN SL ANXIETY / AGITATION; Start at 15:30; Stop 12/28/16 at 15:37; Status DC Lorazepam (Ativan Intensol) 0.5 mg PRN Q2HR PRN SL ANXIETY / AGITATION Last administered on 12/28/16 15:46; Start 12/28/16 at 15:45 Quetiapine Fumarate (SEROquel) 75 mg HS PO Last administered on 01/10/17 20:14 ; Start 12/28/16 at 21:00 Quetiapine Fumarate (SEROquel) 50 mg BID92 PO Last administered on 01/11/17 14 :52; Start 12/29/16 at 09:00 Trazodone HCl (Desyrel) 100 mg HS PO Last administered on 01/10/17 20:17; Start 12/28/16 at 21:00 Trazodone HCl (Desyrel) 100 mg PRN QHS PRN PO INSOMNIA MAY REPEAT X1 Last administered on 12/28/16 19:48; Start 12/28/16 at 19:00 Valproic Acid (Depakene) 250 mg BID PO Last administered on 01/10/17 20:14; Start 12/28/16 at 21:00; Stop 01/11/17 at 04:43; Status DC Cyanocobalamin (Vitamin B-12) 1,000 mcg DAILY PO Last administered on 09:11; Start 01/04/17 at 09:00 Sertraline HCl (Zoloft) 75 mg DAILY PO Last administered on 01/11/17 09:11; Start 01/05/17 at 09:00 Nicotine (Nicoderm Cq 14mg) 1 patch DAILY TD Last administered on 01/11/17 09: 12; Start 01/07/17 at 09:00 Divalproex Sodium (Depakote Sprinkles) 250 mg BID PO Last administered on 09:13; Start 01/11/17 at 09:00 Active Scripts Active Reported Haldol (Haloperidol Lactate) 5 Mg/1 Ml Ampul 2 Mg SUBCUT PRN Q4HRS PRN Famotidine 20 Mg Tablet 20 Mg PO PRN BID PRN Senna (Sennosides) 8.6 Mg Tablet 8.6 Mg PO PRN BID PRN Milk Of Magnesia (Magnesium Hydroxide) 400 Mg/5 Ml Oral.susp 2,400 Mg PO PRN DAILY PRN Dulcolax (Bisacodyl) 10 Mg Supp.rect 10 Mg RC PRN DAILY Tylenol (Acetaminophen) 325 Mg Tablet 650 Mg PO Q4HRS PRN Risperidone 1 Mg/1 Ml Disp.syrin 1 Mg PO BID Polyethylene Glycol 3350 255 Gm Powder 17 Gm PO DAILY Docusate Sodium 100 Mg Capsule 100 Mg PO BID Atorvastatin Calcium 40 Mg Tablet 40 Mg PO DAILY Aspirin 81 Mg Tab.chew 81 Mg PO DAILY Diagnosis: Problems: (1) Anxiety disorder (2) Dementia, vascular, with delusions (3) Dementia, vascular, with depression (4) Impulse control disorder RELL PUENTE MD Jan 11, 2017 20:00
[2017-01-11] MEDS: traZODone 100 MG TABLET. PO SCH (20:14)
[2017-01-11] MEDS: MIRTAZAPINE 15 MG TABLET PO SCH (20:15)
--- NOTE | 2017-01-11 20:30 | NUR ---
Behavior Intervention Response and Plan: BIRP Note: Behavior: Assumed Care of patient, patient located in Patient Room at shift change. Patient exhibited the following behavior Anxious, Disorganized, Cooperative. Brief assessment on rounds of vital signs, medication needs, lab studies, and pain. Treatment plan problems 1-2. Intervention: Patient assessed and the following interventions initiated safety checks 15 Minute Checks Cognitive Assessment , Head to toe Assessment , Medications. Response: After interactions and interventions patient responded in the following manner, Disorganized , Calm ,Cooperative. Continue to assess behaviors and condition will continue to monitor throughout the shift as needed. Patient educated on ADL's, and hand hygiene. 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 Continue to assess patient for changes in above assessment. Monitor for medication needs, pain, and safety concerns. Hourly rounding performed to ensure safe environment.
--- NOTE | 2017-01-12 03:30 | PN ---
DATE: 01/10/2017 This late entry of 01/10/2017 covers elements not covered in my initial note of 01/10/2017. SUBJECTIVE: I met with the patient in the evening of 01/10/2017. Per nursing report, the patient is compliant with her medications. No aggression noted, gets withdrawn at times, spends much time in her room, but as I met with her individually, she is pleasant, waving at me from a distance, smiling, but her verbalizations are difficult to understand status post CVA. Speech is word salad per nursing report. REVIEW OF SYSTEMS: No CV, , pulmonary, eye, ENT system symptoms on review. Reliability poor. MENTAL STATUS EXAM: Oriented to herself. Insight, judgment, recent and remote memory, attention, concentration, fund of knowledge poor, consistent with her diagnosis mentioned in my initial noted. LABORATORY DATA: Reviewed. PLAN: Continue current psychotropics, Zoloft 75 mg a day, Remeron 15 mg at bedtime, Seroquel 50 mg at 0900, 1400, 75 mg at bedtime, Depakene 250 mg b.i.d. Valproic acid level is therapeutic at 70. Reviewed drug interactions. Risk/benefit ratio favors no further change at this time. RELL PUENTE MD DR: BRIONNA/gui JOB#: [id number] / [id number]
[2017-01-12 06:16] VITALS: BP 107/71
[2017-01-12] MEDS: DIVALPROEX 125 MG CAP.SPRINK PO SCH ×3 (09:00→19:39)
[2017-01-12] MEDS: POLYETHYLENE GLYCOL 3350 17 GM PACKET. PO SCH ×2 (09:00→09:14)
[2017-01-12] MEDS: ATORVASTATIN CALCIUM 20 MG TABLET PO SCH ×2 (09:00→09:14)
[2017-01-12] MEDS: CYANOCOBALAMIN (VITAMIN B-12) 1,000 MCG TABLET. PO SCH ×2 (09:00→09:14)
[2017-01-12] MEDS: SERTRALINE 25 MG TABLET. PO SCH ×2 (09:00→09:14)
[2017-01-12] MEDS: NICOTINE 14MG PATCH. TD SCH ×2 (09:00→09:15)
[2017-01-12] MEDS: DOCUSATE SODIUM 100 MG CAPSULE PO SCH ×3 (09:00→19:39)
[2017-01-12] MEDS: ASPIRIN 81 MG TAB.CHEW PO SCH ×2 (09:00→09:14)
[2017-01-12] MEDS: QUEtiapine 50 MG TABLET. PO SCH ×4 (09:00→19:39)
--- NOTE | 2017-01-12 09:10 | NUR ---
THERAPEUTIC RECREATION GROUP NOTE TITLE :Movie- REPORTED BY CNAs ACTIVITY : Activities and Games GOAL : Increase alertness, focus, decrease stress DURATION : 90 minutes RESPONSE : No participation
--- NOTE | 2017-01-12 10:49 | NUR ---
Nursing Note: Multiple attempts were made to give pt her medication whole this am. Then medications were hidden in a milkshake and pt still refused.
[2017-01-12] MEDS: LORazepam INTENSOL 2 MG/ML BOTTLE SL PRN (10:56)
--- NOTE | 2017-01-12 11:01 | NUR ---
Nursing Note: Pt approached staff in the hallway tearful complaining that, she shouldn't be here, her son should come and pick her up, no one is helping her and that people want her to take "really big pills." PRN given hidden in Sprite.
--- NOTE | 2017-01-12 11:30 | NUR ---
THERAPEUTIC RECREATION GROUP NOTE TITLE :Movement to Music:Strength ACTIVITY : Movement/ Exercise GOAL : Increase morale, attention, flexibility. Decrease stress/anxiety. DURATION : 30 Minutes RESPONSE : No participation
--- NOTE | 2017-01-12 11:47 | NUR ---
Nursing Note: Pt's son Coy called. Informed him that facility came this am to interview his mother for possible placement and it went well. Transferred him to SHIRLEY Marquez for more information about the facility.
--- NOTE | 2017-01-12 14:29 | NUR ---
Group Note [facility] Group Type: "The Ungame" Start time: 1:00pm End time: 2:00pm Problem: Socializing Purpose: Getting to know each other Level of Participation: High Behavior: or symptom observed: Pt came over in the middle of group and sat on the outside of the skagway. Intervention: Pt was asked if she wanted a chair in order to join the group. Response: Pt sat on the outside of the group and observed. Plan: Group Participation
--- NOTE | 2017-01-12 15:15 | NUR ---
THERAPEUTIC RECREATION GROUP NOTE TITLE :Internal Clock and Daily Schedule ACTIVITY : Education and Life Skills GOAL : Increase self-expression/insight, coping skills, attention. DURATION : 60 minutes RESPONSE : No participation
--- NOTE | 2017-01-12 15:34 | NUR ---
Behavior Intervention Response and Plan: BIRP Note: Behavior: Assumed Care of patient, patient located in Hallway at shift change. Patient exhibited the following behavior Non Compliant, Disorganized, Anxious. Brief assessment on rounds of vital signs, medication needs, lab studies, and pain. Treatment plan problems Vascular Dementia w/ BD and Fall Risk. Intervention: Patient assessed and the following interventions initiated safety checks 15 Minute Checks Cognitive Assessment , Head to toe Assessment , Medications. Response: After interactions and interventions patient responded in the following manner, Wandering , Disorganized ,Anxious. Continue to assess behaviors and condition will continue to monitor throughout the shift as needed. Patient educated on ADL's, and hand hygiene. Plan: Continue to monitor Master Treatment Plan for patient's progress toward short term goals of Medication Compliance, Decreased Aggression, manager terminal goals to return to previous living setting vs placement. Continue to assess patient for changes in above assessment. Monitor for medication needs, pain, and safety concerns. Hourly rounding performed to ensure safe environment.
--- NOTE | 2017-01-12 16:09 | NUR ---
SHIRLEY returned call to Pt's son/dpoa, Coy regarding a facility that screened Pt. earlier in the day. SHIRLEY was to hear back from Yariel at [facility] regarding admit. SHIRLEY left contact info for XAVIER as this SW will not be back in the office until Monday. SHIRLEY will follow up then.
[2017-01-12 16:30] VITALS: BP 108/57
[2017-01-12] MEDS: traZODone 100 MG TABLET. PO SCH (19:39)
[2017-01-12] MEDS: MIRTAZAPINE 15 MG TABLET PO SCH (19:39)
--- NOTE | 2017-01-12 20:14 | PDOC ---
Exam Anson Demential Exam: Anson Note: Please also refer to the separate dictated note~for this date of service dictated separately.~Patient seen individually. Discussed the patient with Nursing staff reviewed the chart.~Reviewed interim history and current functioning. Reviewed vital signs,~Labs/ Radiology~and current medications noted below. Continue current treatment with the changes noted in the dictated addendum note Assessment: Vital Signs: Vital Signs Date Time Temp Pulse Resp B/P (MAP) Pulse Ox O2 Delivery O2 Flow Rate FiO2 01/12/17 16:30 98.2 91 18 108/57 (74) 96 01/08/17 06:11 Room Air I&O Intake and Output 01/13/17 06:59 Intake Total 750 ml Balance 750 ml Intake Oral 750 ml Current Medications: Meds: Current Medications Nicotine (Nicoderm Cq 21mg) 1 patch DAILY TD Last administered on 01/06/17 09: 13; Start 12/24/16 at 09:00; Stop 01/07/17 at 09:00; Status DC Risperidone (RisperDAL) 1 mg BID PO Last administered on 12/24/16 09:07; Start 12/23/16 at 22:00; Stop 12/24/16 at 16:36; Status DC Acetaminophen (Tylenol) 650 mg PRN Q4HRS PRN PO PAIN / TEMP; Start 12/23/16 at 21:30 Aspirin (Children'S Aspirin) 81 mg DAILY PO Last administered on 01/11/17 09: 11; Start 12/24/16 at 09:00 Bisacodyl (Dulcolax Supp) 10 mg PRN DAILY PRN RC CONSTIPATION; Start 12/23/16 at 21:30 Docusate Sodium (Colace) 100 mg BID PO Last administered on 01/12/17 19:39; Start 12/24/16 at 09:00 Famotidine (Pepcid) 20 mg PRN BID PRN PO DYSPEPSIA Last administered on 20:30; Start 12/23/16 at 21:30 Magnesium Hydroxide (Milk Of Magnesia) 2,400 mg PRN DAILY PRN PO CONSTIPATION; Start 12/23/16 at 21:30 Polyethylene Glycol (miraLAX) 17 gm DAILY PO Last administered on 01/11/17 09: 12; Start 12/24/16 at 09:00 Sennosides (Senna) 8.6 mg PRN BID PRN PO CONSTIPATION; Start 12/23/16 at 21:30 Atorvastatin Calcium (Lipitor) 40 mg DAILY PO Last administered on 01/11/17 09 :10; Start 12/24/16 at 09:00 Al Hydroxide/Mg Hydroxide (Mylanta Plus Xs) 15 ml PRN AFTMEALHC PRN PO DYSPEPSIA; Start 12/23/16 at 21:30 Multi-Ingredient Ointment (Analgesic Seymour) 1 josiane PRN QID PRN TP MUSCLE PAIN; Start 12/23/16 at 21:30 Olanzapine (ZyPREXA ZYDIS) 2.5 mg PRN Q2HR PRN PO ANXIETY / AGITATION Last administered on 12/28/16 15:39; Start 12/23/16 at 21:30 Risperidone (RisperDAL) 1 mg BID PO Last administered on 12/25/16 19:17; Start 12/24/16 at 21:00; Stop 12/25/16 at 21:44; Status DC Risperidone (RisperDAL) 1 mg HS PO ; Start 12/26/16 at 21:00; Stop 12/26/16 at 21:00; Status DC Risperidone (RisperDAL) 0.5 mg DAILY PO Last administered on 12/26/16 09:33; Start 12/26/16 at 09:00; Stop 12/26/16 at 18:34; Status DC Sertraline HCl (Zoloft) 50 mg DAILY PO Last administered on 01/04/17 08:20; Start 12/26/16 at 09:00; Stop 01/04/17 at 18:44; Status DC Vitamin D (Vitamin D3) 50,000 unit WEEKLY PO Last administered on 01/03/17 08: 56; Start 12/27/16 at 09:00 Mirtazapine (Remeron) 7.5 mg QHS PO Last administered on 12/26/16 21:14; Start 12/26/16 at 21:00; Stop 12/27/16 at 18:37; Status DC Quetiapine Fumarate (SEROquel) 12.5 mg BID92 PO Last administered on 12/28/16 14:07; Start 12/27/16 at 09:00; Stop 12/28/16 at 18:51; Status DC Quetiapine Fumarate (SEROquel) 25 mg HS PO Last administered on 12/26/16 21:13 ; Start 12/26/16 at 21:00; Stop 12/27/16 at 18:37; Status DC Mirtazapine (Remeron) 15 mg QHS PO Last administered on 01/12/17 19:39; Start 12/27/16 at 21:00 Quetiapine Fumarate (SEROquel) 50 mg HS PO Last administered on 12/27/16 19:36 ; Start 12/27/16 at 21:00; Stop 12/28/16 at 18:51; Status DC Trazodone HCl (Desyrel) 50 mg QHS PO Last administered on 12/27/16 19:36; Start 12/27/16 at 21:00; Stop 12/28/16 at 18:53; Status DC Trazodone HCl (Desyrel) 50 mg PRN DAILY PRN PO INSOMNIA, MAY REPEAT IN 1HR; Start 12/27/16 at 18:45 Trazodone HCl (Desyrel) 50 mg PRN QHS PRN PO INSOMNIA, MAY REPEAT X1; Start at 13:15; Stop 12/28/16 at 18:53; Status DC Lorazepam (Ativan Intensol) 2 mg PRN Q2HR PRN SL ANXIETY / AGITATION; Start at 15:30; Stop 12/28/16 at 15:37; Status DC Lorazepam (Ativan Intensol) 0.5 mg PRN Q2HR PRN SL ANXIETY / AGITATION Last administered on 01/12/17 10:56; Start 12/28/16 at 15:45 Quetiapine Fumarate (SEROquel) 75 mg HS PO Last administered on 01/12/17 19:39 ; Start 12/28/16 at 21:00 Quetiapine Fumarate (SEROquel) 50 mg BID92 PO Last administered on 01/12/17 14 :13; Start 12/29/16 at 09:00 Trazodone HCl (Desyrel) 100 mg HS PO Last administered on 01/12/17 19:39; Start 12/28/16 at 21:00 Trazodone HCl (Desyrel) 100 mg PRN QHS PRN PO INSOMNIA MAY REPEAT X1 Last administered on 12/28/16 19:48; Start 12/28/16 at 19:00 Valproic Acid (Depakene) 250 mg BID PO Last administered on 01/10/17 20:14; Start 12/28/16 at 21:00; Stop 01/11/17 at 04:43; Status DC Cyanocobalamin (Vitamin B-12) 1,000 mcg DAILY PO Last administered on 09:11; Start 01/04/17 at 09:00 Sertraline HCl (Zoloft) 75 mg DAILY PO Last administered on 01/11/17 09:11; Start 01/05/17 at 09:00 Nicotine (Nicoderm Cq 14mg) 1 patch DAILY TD Last administered on 01/11/17 09: 12; Start 01/07/17 at 09:00 Divalproex Sodium (Depakote Sprinkles) 250 mg BID PO Last administered on 19:39; Start 01/11/17 at 09:00 Active Scripts Active Reported Haldol (Haloperidol Lactate) 5 Mg/1 Ml Ampul 2 Mg SUBCUT PRN Q4HRS PRN Famotidine 20 Mg Tablet 20 Mg PO PRN BID PRN Senna (Sennosides) 8.6 Mg Tablet 8.6 Mg PO PRN BID PRN Milk Of Magnesia (Magnesium Hydroxide) 400 Mg/5 Ml Oral.susp 2,400 Mg PO PRN DAILY PRN Dulcolax (Bisacodyl) 10 Mg Supp.rect 10 Mg RC PRN DAILY Tylenol (Acetaminophen) 325 Mg Tablet 650 Mg PO Q4HRS PRN Risperidone 1 Mg/1 Ml Disp.syrin 1 Mg PO BID Polyethylene Glycol 3350 255 Gm Powder 17 Gm PO DAILY Docusate Sodium 100 Mg Capsule 100 Mg PO BID Atorvastatin Calcium 40 Mg Tablet 40 Mg PO DAILY Aspirin 81 Mg Tab.chew 81 Mg PO DAILY Diagnosis: Problems: (1) Anxiety disorder (2) Dementia, vascular, with delusions (3) Dementia, vascular, with depression (4) Impulse control disorder RELL PUENTE MD Jan 12, 2017 20:14
--- NOTE | 2017-01-12 22:53 | NUR ---
Behavior Intervention Response and Plan: BIRP Note: Behavior: Assumed Care of patient, patient located in Patient Room at shift change. Patient exhibited the following behavior Cooperative, Disorganized, Anxious. Brief assessment on rounds of vital signs, medication needs, lab studies, and pain. Treatment plan problems Vascular Dementia w/ BD and Fall Risk. Intervention: Patient assessed and the following interventions initiated safety checks 15 Minute Checks Cognitive Assessment , Head to toe Assessment , Medications. Response: After interactions and interventions patient responded in the following manner, Wandering , Disorganized, Calm. Continue to assess behaviors and condition will continue to monitor throughout the shift as needed. Patient educated on ADL's, and hand hygiene. 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 Continue to assess patient for changes in above assessment. Monitor for medication needs, pain, and safety concerns. Hourly rounding performed to ensure safe environment.
[2017-01-13 05:55] VITALS: BP 98/56
[2017-01-13] MEDS: NICOTINE 14MG PATCH. TD SCH (07:49)
[2017-01-13] MEDS: POLYETHYLENE GLYCOL 3350 17 GM PACKET. PO SCH (07:49)
[2017-01-13] MEDS: SERTRALINE 25 MG TABLET. PO SCH (07:50)
[2017-01-13] MEDS: DIVALPROEX 125 MG CAP.SPRINK PO SCH ×2 (07:50→20:05)
[2017-01-13] MEDS: DOCUSATE SODIUM 100 MG CAPSULE PO SCH ×2 (07:50→20:04)
[2017-01-13] MEDS: CYANOCOBALAMIN (VITAMIN B-12) 1,000 MCG TABLET. PO SCH (07:50)
[2017-01-13] MEDS: ATORVASTATIN CALCIUM 20 MG TABLET PO SCH (07:50)
[2017-01-13] MEDS: QUEtiapine 50 MG TABLET. PO SCH ×3 (07:50→20:05)
--- NOTE | 2017-01-13 08:11 | PN ---
DATE: 01/11/2017 PSYCHIATRIC PROGRESS NOTE This late entry of 01/11/2017 covers elements not covered in my initial note of 01/11/2017. I met with the patient evening of 01/11/2017. The patient remains confused, has expressive aphasia, social, smiling, less irritable, and anxious. REVIEW OF SYSTEMS: No CV, , pulmonary, eye, ENT system symptoms on review. She is not forthcoming on questioning about this due to her confusion. MENTAL STATUS EXAMINATION: Oriented to herself. Insight, judgment, recent and remote memory, attention, concentration, fund of knowledge poor, consistent with her diagnosis mentioned in my initial note. PLAN: Continue current psychotropics mentioned in my initial note, Zoloft, Remeron, Seroquel, and Depakote. Review drug interactions. Risk/benefit ratio favors no further change at this time. Valproic acid level is therapeutic at 70. RELL PUENTE MD DR: BRIONNA/gui JOB#: [id number] / [id number]
--- NOTE | 2017-01-13 08:48 | NUR ---
Behavior Intervention Response and Plan: BIRP Note: Behavior: Assumed Care of patient, patient located in Dining Room at shift change. Patient exhibited the following behavior Disorganized, Compliant, withdrawn. Brief assessment on rounds of vital signs, medication needs, lab studies, and pain. Treatment plan problems . Intervention: Patient assessed and the following interventions initiated safety checks 15 Minute Checks Cognitive Assessment , Head to toe Assessment , Medications. Response: After interactions and interventions patient responded in the following manner, Disorganized , Compliant ,Cooperative. Continue to assess behaviors and condition will continue to monitor throughout the shift as needed. Patient educated on ADL's, and hand hygiene. Plan: Continue to monitor Master Treatment Plan for patient's progress toward short term goals of Decreased Agitation, Decreased Aggression, care home goals to return to previous living setting vs placement. Continue to assess patient for changes in above assessment. Monitor for medication needs, pain, and safety concerns. Hourly rounding performed to ensure safe environment.
--- NOTE | 2017-01-13 10:00 | NUR ---
THERAPEUTIC RECREATION GROUP NOTE TITLE :Ball Bounce and Daily Awareness ACTIVITY : Activities and Games GOAL : Increase alertness, focus, decrease stress DURATION : 60 minutes RESPONSE : No participation. Pt. was wandering the unit, sat in group for a moment but left and did not return.
--- NOTE | 2017-01-13 11:30 | NUR ---
THERAPEUTIC RECREATION GROUP NOTE TITLE :Movement to Music: Flexibility ACTIVITY : Movement/ Exercise GOAL : Increase morale, attention, flexibility. Decrease stress/anxiety. DURATION : 30 Minutes RESPONSE : No participation. Pt. was alert and with the group the entire time but showed no interest.
--- NOTE | 2017-01-13 12:30 | NUR ---
Quin peña called stated [facility] in [place] will accept pt, SW asked if SW could be provided a cash van salesperson, so that discharge plans could be set. Individual stated she will find out the information and email this journalists and other writers as well as pt son together. Quin peña stated Monday discharge. SW will follow up with [facility] as well as pt son.
--- NOTE | 2017-01-13 14:20 | NUR ---
THERAPEUTIC RECREATION GROUP NOTE TITLE :Bingo ACTIVITY : Activities and Games GOAL : Increase alertness, focus, morale, decrease stress, team building, positive communication DURATION : 50 Minutes RESPONSE : No participation.
[2017-01-13 16:40] VITALS: BP 105/70
--- NOTE | 2017-01-13 16:59 | NUR ---
pt up adl to meals and groups. compliant with meds and cares. son to see pt. visit went well. pt has difficulty expressing thoughts.
[2017-01-13] MEDS: traZODone 100 MG TABLET. PO SCH (20:05)
[2017-01-13] MEDS: MIRTAZAPINE 15 MG TABLET PO SCH (20:05)
--- NOTE | 2017-01-13 20:42 | PDOC ---
Exam Anson Demential Exam: Anson Note: Please also refer to the separate dictated note~for this date of service dictated separately.~Patient seen individually. Discussed the patient with Nursing staff reviewed the chart.~Reviewed interim history and current functioning. Reviewed vital signs,~Labs/ Radiology~and current medications noted below. Continue current treatment with the changes noted in the dictated addendum note Assessment: Vital Signs: Vital Signs Date Time Temp Pulse Resp B/P (MAP) Pulse Ox O2 Delivery O2 Flow Rate FiO2 01/13/17 16:40 98.8 90 18 105/70 (82) 96 Room Air I&O Intake and Output 01/14/17 07:00 Intake Total 900 ml Balance 900 ml Intake Oral 900 ml Current Medications: Meds: Current Medications Nicotine (Nicoderm Cq 21mg) 1 patch DAILY TD Last administered on 01/06/17 09: 13; Start 12/24/16 at 09:00; Stop 01/07/17 at 09:00; Status DC Risperidone (RisperDAL) 1 mg BID PO Last administered on 12/24/16 09:07; Start 12/23/16 at 22:00; Stop 12/24/16 at 16:36; Status DC Acetaminophen (Tylenol) 650 mg PRN Q4HRS PRN PO PAIN / TEMP; Start 12/23/16 at 21:30 Aspirin (Children'S Aspirin) 81 mg DAILY PO Last administered on 01/11/17 09: 11; Start 12/24/16 at 09:00 Bisacodyl (Dulcolax Supp) 10 mg PRN DAILY PRN RC CONSTIPATION; Start 12/23/16 at 21:30 Docusate Sodium (Colace) 100 mg BID PO Last administered on 01/13/17 20:04; Start 12/24/16 at 09:00 Famotidine (Pepcid) 20 mg PRN BID PRN PO DYSPEPSIA Last administered on 20:30; Start 12/23/16 at 21:30 Magnesium Hydroxide (Milk Of Magnesia) 2,400 mg PRN DAILY PRN PO CONSTIPATION; Start 12/23/16 at 21:30 Polyethylene Glycol (miraLAX) 17 gm DAILY PO Last administered on 01/13/17 07: 49; Start 12/24/16 at 09:00 Sennosides (Senna) 8.6 mg PRN BID PRN PO CONSTIPATION; Start 12/23/16 at 21:30 Atorvastatin Calcium (Lipitor) 40 mg DAILY PO Last administered on 01/13/17 07 :50; Start 12/24/16 at 09:00 Al Hydroxide/Mg Hydroxide (Mylanta Plus Xs) 15 ml PRN AFTMEALHC PRN PO DYSPEPSIA; Start 12/23/16 at 21:30 Multi-Ingredient Ointment (Analgesic Butler) 1 josiane PRN QID PRN TP MUSCLE PAIN; Start 12/23/16 at 21:30 Olanzapine (ZyPREXA ZYDIS) 2.5 mg PRN Q2HR PRN PO ANXIETY / AGITATION Last administered on 12/28/16 15:39; Start 12/23/16 at 21:30 Risperidone (RisperDAL) 1 mg BID PO Last administered on 12/25/16 19:17; Start 12/24/16 at 21:00; Stop 12/25/16 at 21:44; Status DC Risperidone (RisperDAL) 1 mg HS PO ; Start 12/26/16 at 21:00; Stop 12/26/16 at 21:00; Status DC Risperidone (RisperDAL) 0.5 mg DAILY PO Last administered on 12/26/16 09:33; Start 12/26/16 at 09:00; Stop 12/26/16 at 18:34; Status DC Sertraline HCl (Zoloft) 50 mg DAILY PO Last administered on 01/04/17 08:20; Start 12/26/16 at 09:00; Stop 01/04/17 at 18:44; Status DC Vitamin D (Vitamin D3) 50,000 unit WEEKLY PO Last administered on 01/03/17 08: 56; Start 12/27/16 at 09:00 Mirtazapine (Remeron) 7.5 mg QHS PO Last administered on 12/26/16 21:14; Start 12/26/16 at 21:00; Stop 12/27/16 at 18:37; Status DC Quetiapine Fumarate (SEROquel) 12.5 mg BID92 PO Last administered on 12/28/16 14:07; Start 12/27/16 at 09:00; Stop 12/28/16 at 18:51; Status DC Quetiapine Fumarate (SEROquel) 25 mg HS PO Last administered on 12/26/16 21:13 ; Start 12/26/16 at 21:00; Stop 12/27/16 at 18:37; Status DC Mirtazapine (Remeron) 15 mg QHS PO Last administered on 01/13/17 20:05; Start 12/27/16 at 21:00 Quetiapine Fumarate (SEROquel) 50 mg HS PO Last administered on 12/27/16 19:36 ; Start 12/27/16 at 21:00; Stop 12/28/16 at 18:51; Status DC Trazodone HCl (Desyrel) 50 mg QHS PO Last administered on 12/27/16 19:36; Start 12/27/16 at 21:00; Stop 12/28/16 at 18:53; Status DC Trazodone HCl (Desyrel) 50 mg PRN DAILY PRN PO INSOMNIA, MAY REPEAT IN 1HR; Start 12/27/16 at 18:45 Trazodone HCl (Desyrel) 50 mg PRN QHS PRN PO INSOMNIA, MAY REPEAT X1; Start at 13:15; Stop 12/28/16 at 18:53; Status DC Lorazepam (Ativan Intensol) 2 mg PRN Q2HR PRN SL ANXIETY / AGITATION; Start at 15:30; Stop 12/28/16 at 15:37; Status DC Lorazepam (Ativan Intensol) 0.5 mg PRN Q2HR PRN SL ANXIETY / AGITATION Last administered on 01/12/17 10:56; Start 12/28/16 at 15:45 Quetiapine Fumarate (SEROquel) 75 mg HS PO Last administered on 01/13/17 20:05 ; Start 12/28/16 at 21:00 Quetiapine Fumarate (SEROquel) 50 mg BID92 PO Last administered on 01/13/17 13 :29; Start 12/29/16 at 09:00 Trazodone HCl (Desyrel) 100 mg HS PO Last administered on 01/13/17 20:05; Start 12/28/16 at 21:00 Trazodone HCl (Desyrel) 100 mg PRN QHS PRN PO INSOMNIA MAY REPEAT X1 Last administered on 12/28/16 19:48; Start 12/28/16 at 19:00 Valproic Acid (Depakene) 250 mg BID PO Last administered on 01/10/17 20:14; Start 12/28/16 at 21:00; Stop 01/11/17 at 04:43; Status DC Cyanocobalamin (Vitamin B-12) 1,000 mcg DAILY PO Last administered on 07:50; Start 01/04/17 at 09:00 Sertraline HCl (Zoloft) 75 mg DAILY PO Last administered on 01/13/17 07:50; Start 01/05/17 at 09:00 Nicotine (Nicoderm Cq 14mg) 1 patch DAILY TD Last administered on 01/13/17 07: 49; Start 01/07/17 at 09:00 Divalproex Sodium (Depakote Sprinkles) 250 mg BID PO Last administered on 20:05; Start 01/11/17 at 09:00 Active Scripts Active Reported Haldol (Haloperidol Lactate) 5 Mg/1 Ml Ampul 2 Mg SUBCUT PRN Q4HRS PRN Famotidine 20 Mg Tablet 20 Mg PO PRN BID PRN Senna (Sennosides) 8.6 Mg Tablet 8.6 Mg PO PRN BID PRN Milk Of Magnesia (Magnesium Hydroxide) 400 Mg/5 Ml Oral.susp 2,400 Mg PO PRN DAILY PRN Dulcolax (Bisacodyl) 10 Mg Supp.rect 10 Mg RC PRN DAILY Tylenol (Acetaminophen) 325 Mg Tablet 650 Mg PO Q4HRS PRN Risperidone 1 Mg/1 Ml Disp.syrin 1 Mg PO BID Polyethylene Glycol 3350 255 Gm Powder 17 Gm PO DAILY Docusate Sodium 100 Mg Capsule 100 Mg PO BID Atorvastatin Calcium 40 Mg Tablet 40 Mg PO DAILY Aspirin 81 Mg Tab.chew 81 Mg PO DAILY Diagnosis: Problems: (1) Anxiety disorder (2) Dementia, vascular, with delusions (3) Dementia, vascular, with depression (4) Impulse control disorder RELL PUENTE MD Jan 13, 2017 20:42
--- NOTE | 2017-01-14 02:16 | NUR ---
Behavior Intervention Response and Plan: BIRP Note: Behavior: Assumed Care of patient, patient located in Dining Room at shift change. Patient exhibited the following behavior Disorganized, Compliant, withdrawn. Brief assessment on rounds of vital signs, medication needs, lab studies, and pain. Treatment plan problems . Intervention: Patient assessed and the following interventions initiated safety checks 15 Minute Checks Cognitive Assessment , Head to toe Assessment , Medications. Response: After interactions and interventions patient responded in the following manner, Disorganized , Compliant ,Cooperative. Continue to assess behaviors and condition will continue to monitor throughout the shift as needed. Patient educated on ADL's, and hand hygiene. Plan: Continue to monitor Master Treatment Plan for patient's progress toward short term goals of Decreased Agitation, Decreased Aggression, [facility] goals to return to previous living setting vs placement. Continue to assess patient for changes in above assessment. Monitor for medication needs, pain, and safety concerns. Hourly rounding performed to ensure safe environment.
[2017-01-14 06:14] VITALS: BP 96/60
[2017-01-14 07:06] LABS: ALBUMIN/GLOBULIN RATIO 0.9 (1.0-1.7); CALCIUM 8.6 mg/dL (8.5-10.1); CREATININE 0.8 mg/dL (0.6-1.0); GFR 71.1; POTASSIUM 4.2 mmol/L (3.5-5.1); TOTAL BILIRUBIN 0.4 mg/dL (0.2-1.0); TOTAL PROTEIN 6.3 g/dL (6.4-8.2)
[2017-01-14 07:35] LABS: BASO % 1 % (0-3); EOS # 0.1 x10^3/uL (0.0-0.7); EOS % 2 % (0-3); HEMOGLOBIN 13.4 g/dL (12.0-15.5); LYMPH # 1.9 x10^3/uL (1.0-4.8); LYMPH % 38 % (24-48); MEAN CORPUSCULAR HEMOGLOBIN 32 pg (25-35); MEAN CORPUSCULAR HGB CONC 34 g/dL (31-37); MEAN CORPUSCULAR VOLUME 93 fL (79-100); MONO # 0.6 x10^3/uL (0.0-1.1); MONO % 12 % (0-9); NEUT # 2.3 x10^3uL (1.8-7.7); NEUT % 47 % (31-73); PLATELET COUNT 230 x10^3/uL (140-400); RED BLOOD COUNT 4.19 x10^6/uL (3.50-5.40); RED CELL DISTRIBUTION WIDTH 13.2 % (11.5-14.5); WHITE BLOOD COUNT 4.9 x10^3/uL (4.0-11.0)
[2017-01-14] MEDS: ASPIRIN 81 MG TAB.CHEW PO SCH (08:48)
[2017-01-14] MEDS: ATORVASTATIN CALCIUM 20 MG TABLET PO SCH (08:48)
[2017-01-14] MEDS: DIVALPROEX 125 MG CAP.SPRINK PO SCH ×2 (08:48→20:53)
[2017-01-14] MEDS: POLYETHYLENE GLYCOL 3350 17 GM PACKET. PO SCH (08:48)
[2017-01-14] MEDS: DOCUSATE SODIUM 100 MG CAPSULE PO SCH ×2 (08:48→20:53)
[2017-01-14] MEDS: NICOTINE 14MG PATCH. TD SCH (08:49)
[2017-01-14] MEDS: SERTRALINE 25 MG TABLET. PO SCH (08:49)
[2017-01-14] MEDS: CYANOCOBALAMIN (VITAMIN B-12) 1,000 MCG TABLET. PO SCH (08:49)
[2017-01-14] MEDS: QUEtiapine 50 MG TABLET. PO SCH ×3 (08:49→20:53)
--- NOTE | 2017-01-14 09:10 | PN ---
DATE: 01/12/2017 PSYCHIATRIC PROGRESS NOTE This late entry 01/12/2017 covers elements not covered in my initial note of 01/12/2017. The patient was staffed at treatment team meeting morning of 01/12/2017, seen individually evening of 01/12/2017. The treatment team meeting reviewed the patient's diagnosis, placement options, medications at some length. Appetite 70%, sleeping 6-1/2 to 8-1/2 hours, irritable, withdrawn at times. Speech is word salad, but very pleasant as I met with her the evening of 01/12/2017. REVIEW OF SYSTEMS: No CV, , pulmonary, eye, ENT system symptoms on review. Reliability poor. MENTAL STATUS EXAM: Oriented to herself. Insight, judgment, recent and remote memory, attention, concentration, fund of knowledge poor, consistent with her diagnosis. Speech is word salad. LABORATORY DATA: Reviewed. IMPRESSION: Unchanged from initial note, major neurocognitive disorder, vascular with delusion, depression, behavioral disturbance; anxiety disorder unspecified, impulse control disorder unspecified. PLAN: Continue current psychotropics, reviewed drug interactions, risk/benefit ratio favors no further change at this time. MAN Ketan PUENTE MD DR: BRIONNA/gui JOB#: [id number] / [id number]
--- NOTE | 2017-01-14 11:55 | NUR ---
Behavior Intervention Response and Plan: BIRP Note: Behavior: Assumed Care of patient, patient located in patient room at shift change. Patient exhibited the following behavior Disorganized, Compliant, withdrawn, word salad. Brief assessment on rounds of vital signs, medication needs, lab studies, and pain. Treatment plan problems . Intervention: Patient assessed and the following interventions initiated safety checks 15 Minute Checks Cognitive Assessment , Head to toe Assessment , Medications. Response: After interactions and interventions patient responded in the following manner, Disorganized, Compliant, confused, Cooperative. Continue to assess behaviors and condition will continue to monitor throughout the shift as needed. Patient educated on ADL's, and hand hygiene. Plan: Continue to monitor Master Treatment Plan for patient's progress toward short term goals of Decreased Agitation, Decreased Aggression, snf goals to return to previous living setting vs placement. Continue to assess patient for changes in above assessment. Monitor for medication needs, pain, and safety concerns. Hourly rounding performed to ensure safe environment.
[2017-01-14 15:50] VITALS: BP 95/60
[2017-01-14] MEDS: MIRTAZAPINE 15 MG TABLET PO SCH (20:53)
[2017-01-14] MEDS: traZODone 100 MG TABLET. PO SCH (20:54)
--- NOTE | 2017-01-14 23:01 | PDOC ---
Exam Anson Demential Exam: Anson Note: Please also refer to the separate dictated note~for this date of service dictated separately.~Patient seen individually. Discussed the patient with Nursing staff reviewed the chart.~Reviewed interim history and current functioning. Reviewed vital signs,~Labs/ Radiology~and current medications noted below. Continue current treatment with the changes noted in the dictated addendum note Assessment: Vital Signs: Vital Signs Date Time Temp Pulse Resp B/P (MAP) Pulse Ox O2 Delivery O2 Flow Rate FiO2 01/14/17 15:50 98.3 70 18 95/60 (72) 99 01/13/17 16:40 Room Air I&O Intake and Output 01/15/17 07:00 Intake Total 960 ml Balance 960 ml Intake Oral 960 ml Labs: Laboratory Tests Test 01/14/17 06:37 White Blood Count 4.9 x10^3/uL (4.0-11.0) Red Blood Count 4.19 x10^6/uL (3.50-5.40) Hemoglobin 13.4 g/dL (12.0-15.5) Hematocrit 39.0 % (36.0-47.0) Mean Corpuscular Volume 93 fL (79-100) Mean Corpuscular Hemoglobin 32 pg (25-35) Mean Corpuscular Hemoglobin Concent 34 g/dL (31-37) Red Cell Distribution Width 13.2 % (11.5-14.5) Platelet Count 230 x10^3/uL (140-400) Neutrophils (%) (Auto) 47 % (31-73) Lymphocytes (%) (Auto) 38 % (24-48) Monocytes (%) (Auto) 12 % (0-9) H Eosinophils (%) (Auto) 2 % (0-3) Basophils (%) (Auto) 1 % (0-3) Neutrophils # (Auto) 2.3 x10^3uL (1.8-7.7) Lymphocytes # (Auto) 1.9 x10^3/uL (1.0-4.8) Monocytes # (Auto) 0.6 x10^3/uL (0.0-1.1) Eosinophils # (Auto) 0.1 x10^3/uL (0.0-0.7) Basophils # (Auto) 0.0 x10^3/uL (0.0-0.2) Sodium Level 144 mmol/L (136-145) Potassium Level 4.2 mmol/L (3.5-5.1) Chloride Level 108 mmol/L (98-107) H Carbon Dioxide Level 31 mmol/L (21-32) Anion Gap 5 (6-14) L Blood Urea Nitrogen 11 mg/dL (7-20) Creatinine 0.8 mg/dL (0.6-1.0) Estimated GFR (Cockcroft-Gault) 71.1 BUN/Creatinine Ratio 14 (6-20) Glucose Level 95 mg/dL (70-99) Calcium Level 8.6 mg/dL (8.5-10.1) Total Bilirubin 0.4 mg/dL (0.2-1.0) Aspartate Amino Transferase (AST) 16 U/L (15-37) Alanine Aminotransferase (ALT) 17 U/L (14-59) Alkaline Phosphatase 70 U/L (46-116) Total Protein 6.3 g/dL (6.4-8.2) L Albumin 3.0 g/dL (3.4-5.0) L Albumin/Globulin Ratio 0.9 (1.0-1.7) L Current Medications: Meds: Current Medications Nicotine (Nicoderm Cq 21mg) 1 patch DAILY TD Last administered on 01/06/17 09: 13; Start 12/24/16 at 09:00; Stop 01/07/17 at 09:00; Status DC Risperidone (RisperDAL) 1 mg BID PO Last administered on 12/24/16 09:07; Start 12/23/16 at 22:00; Stop 12/24/16 at 16:36; Status DC Acetaminophen (Tylenol) 650 mg PRN Q4HRS PRN PO PAIN / TEMP; Start 12/23/16 at 21:30 Aspirin (Children'S Aspirin) 81 mg DAILY PO Last administered on 01/14/17 08: 48; Start 12/24/16 at 09:00 Bisacodyl (Dulcolax Supp) 10 mg PRN DAILY PRN RC CONSTIPATION; Start 12/23/16 at 21:30 Docusate Sodium (Colace) 100 mg BID PO Last administered on 01/14/17 20:53; Start 12/24/16 at 09:00 Famotidine (Pepcid) 20 mg PRN BID PRN PO DYSPEPSIA Last administered on 20:30; Start 12/23/16 at 21:30 Magnesium Hydroxide (Milk Of Magnesia) 2,400 mg PRN DAILY PRN PO CONSTIPATION; Start 12/23/16 at 21:30 Polyethylene Glycol (miraLAX) 17 gm DAILY PO Last administered on 01/14/17 08: 48; Start 12/24/16 at 09:00 Sennosides (Senna) 8.6 mg PRN BID PRN PO CONSTIPATION; Start 12/23/16 at 21:30 Atorvastatin Calcium (Lipitor) 40 mg DAILY PO Last administered on 01/14/17 08 :48; Start 12/24/16 at 09:00 Al Hydroxide/Mg Hydroxide (Mylanta Plus Xs) 15 ml PRN AFTMEALHC PRN PO DYSPEPSIA; Start 12/23/16 at 21:30 Multi-Ingredient Ointment (Analgesic [place]) 1 josiane PRN QID PRN TP MUSCLE PAIN; Start 12/23/16 at 21:30 Olanzapine (ZyPREXA ZYDIS) 2.5 mg PRN Q2HR PRN PO ANXIETY / AGITATION Last administered on 12/28/16 15:39; Start 12/23/16 at 21:30 Risperidone (RisperDAL) 1 mg BID PO Last administered on 12/25/16 19:17; Start 12/24/16 at 21:00; Stop 12/25/16 at 21:44; Status DC Risperidone (RisperDAL) 1 mg HS PO ; Start 12/26/16 at 21:00; Stop 12/26/16 at 21:00; Status DC Risperidone (RisperDAL) 0.5 mg DAILY PO Last administered on 12/26/16 09:33; Start 12/26/16 at 09:00; Stop 12/26/16 at 18:34; Status DC Sertraline HCl (Zoloft) 50 mg DAILY PO Last administered on 01/04/17 08:20; Start 12/26/16 at 09:00; Stop 01/04/17 at 18:44; Status DC Vitamin D (Vitamin D3) 50,000 unit WEEKLY PO Last administered on 01/03/17 08: 56; Start 12/27/16 at 09:00 Mirtazapine (Remeron) 7.5 mg QHS PO Last administered on 12/26/16 21:14; Start 12/26/16 at 21:00; Stop 12/27/16 at 18:37; Status DC Quetiapine Fumarate (SEROquel) 12.5 mg BID92 PO Last administered on 12/28/16 14:07; Start 12/27/16 at 09:00; Stop 12/28/16 at 18:51; Status DC Quetiapine Fumarate (SEROquel) 25 mg HS PO Last administered on 12/26/16 21:13 ; Start 12/26/16 at 21:00; Stop 12/27/16 at 18:37; Status DC Mirtazapine (Remeron) 15 mg QHS PO Last administered on 01/14/17 20:53; Start 12/27/16 at 21:00 Quetiapine Fumarate (SEROquel) 50 mg HS PO Last administered on 12/27/16 19:36 ; Start 12/27/16 at 21:00; Stop 12/28/16 at 18:51; Status DC Trazodone HCl (Desyrel) 50 mg QHS PO Last administered on 12/27/16 19:36; Start 12/27/16 at 21:00; Stop 12/28/16 at 18:53; Status DC Trazodone HCl (Desyrel) 50 mg PRN DAILY PRN PO INSOMNIA, MAY REPEAT IN 1HR; Start 12/27/16 at 18:45 Trazodone HCl (Desyrel) 50 mg PRN QHS PRN PO INSOMNIA, MAY REPEAT X1; Start at 13:15; Stop 12/28/16 at 18:53; Status DC Lorazepam (Ativan Intensol) 2 mg PRN Q2HR PRN SL ANXIETY / AGITATION; Start at 15:30; Stop 12/28/16 at 15:37; Status DC Lorazepam (Ativan Intensol) 0.5 mg PRN Q2HR PRN SL ANXIETY / AGITATION Last administered on 01/12/17 10:56; Start 12/28/16 at 15:45 Quetiapine Fumarate (SEROquel) 75 mg HS PO Last administered on 01/14/17 20:53 ; Start 12/28/16 at 21:00 Quetiapine Fumarate (SEROquel) 50 mg BID92 PO Last administered on 01/14/17 13 :21; Start 12/29/16 at 09:00 Trazodone HCl (Desyrel) 100 mg HS PO Last administered on 01/14/17 20:54; Start 12/28/16 at 21:00 Trazodone HCl (Desyrel) 100 mg PRN QHS PRN PO INSOMNIA MAY REPEAT X1 Last administered on 12/28/16 19:48; Start 12/28/16 at 19:00 Valproic Acid (Depakene) 250 mg BID PO Last administered on 01/10/17 20:14; Start 12/28/16 at 21:00; Stop 01/11/17 at 04:43; Status DC Cyanocobalamin (Vitamin B-12) 1,000 mcg DAILY PO Last administered on 08:49; Start 01/04/17 at 09:00 Sertraline HCl (Zoloft) 75 mg DAILY PO Last administered on 01/14/17 08:49; Start 01/05/17 at 09:00 Nicotine (Nicoderm Cq 14mg) 1 patch DAILY TD Last administered on 01/14/17 08: 49; Start 01/07/17 at 09:00 Divalproex Sodium (Depakote Sprinkles) 250 mg BID PO Last administered on 20:53; Start 01/11/17 at 09:00 Active Scripts Active Reported Haldol (Haloperidol Lactate) 5 Mg/1 Ml Ampul 2 Mg SUBCUT PRN Q4HRS PRN Famotidine 20 Mg Tablet 20 Mg PO PRN BID PRN Senna (Sennosides) 8.6 Mg Tablet 8.6 Mg PO PRN BID PRN Milk Of Magnesia (Magnesium Hydroxide) 400 Mg/5 Ml Oral.susp 2,400 Mg PO PRN DAILY PRN Dulcolax (Bisacodyl) 10 Mg Supp.rect 10 Mg RC PRN DAILY Tylenol (Acetaminophen) 325 Mg Tablet 650 Mg PO Q4HRS PRN Risperidone 1 Mg/1 Ml Disp.syrin 1 Mg PO BID Polyethylene Glycol 3350 255 Gm Powder 17 Gm PO DAILY Docusate Sodium 100 Mg Capsule 100 Mg PO BID Atorvastatin Calcium 40 Mg Tablet 40 Mg PO DAILY Aspirin 81 Mg Tab.chew 81 Mg PO DAILY Diagnosis: Problems: (1) Impulse control disorder (2) Dementia, vascular, with depression (3) Dementia, vascular, with delusions (4) Anxiety disorder RELL PUENTE MD Jan 14, 2017 23:01
--- NOTE | 2017-01-15 01:56 | NUR ---
Behavior Intervention Response and Plan: BIRP Note: Behavior: Assumed Care of patient, patient located in Patient Room at shift change. Patient exhibited the following behavior Interactive, Disorganized, Social. Brief assessment on rounds of vital signs, medication needs, lab studies, and pain. Treatment plan problems:1-2 Intervention: Patient assessed and the following interventions initiated safety checks 15 Minute Checks Cognitive Assessment , Head to toe Assessment , Medications. Response: After interactions and interventions patient responded in the following manner, Calm , Disorganized ,Cooperative. Continue to assess behaviors and condition will continue to monitor throughout the shift as needed. Patient educated on ADL's, and hand hygiene. 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 Continue to assess patient for changes in above assessment. Monitor for medication needs, pain, and safety concerns. Hourly rounding performed to ensure safe environment.
[2017-01-15 05:56] VITALS: BP 113/76
--- NOTE | 2017-01-15 06:32 | PN ---
DATE: 01/13/2017 PSYCHIATRIC PROGRESS NOTE This is a late entry for 01/13/2017, covers elements not covered in my initial note of 01/13/2017. SUBJECTIVE: I met with the patient the evening of 01/13/2017. The patient remains confused, has expressive aphasia status post cerebrovascular accident, but less agitated, less paranoid. Her son, Coy came to visit her. She did well during the visit per nursing report. REVIEW OF SYSTEMS: No CV, , pulmonary, eye, ENT system symptoms on review. Reliability poor. MENTAL STATUS EXAM: Oriented to herself. Insight, judgment, recent and remote memory, attention, concentration, fund of knowledge poor, consistent with her diagnosis. She was pleasant, smiling as I met with her, at times patting me on the back, thanking me for coming visiting with her, but fairly oblivious of her circumstances. LABORATORY DATA: Reviewed. IMPRESSION: Unchanged from initial note. PLAN: Continue current psychotropics. Reviewed drug interactions. Risk/benefit ratio favors no further change. RELL PUENTE MD DR: BRIONNA/gui JOB#: [id number] / [id number]
[2017-01-15] MEDS: DOCUSATE SODIUM 100 MG CAPSULE PO SCH ×2 (09:37→20:11)
[2017-01-15] MEDS: ASPIRIN 81 MG TAB.CHEW PO SCH (09:37)
[2017-01-15] MEDS: CYANOCOBALAMIN (VITAMIN B-12) 1,000 MCG TABLET. PO SCH (09:37)
[2017-01-15] MEDS: DIVALPROEX 125 MG CAP.SPRINK PO SCH ×2 (09:37→20:11)
[2017-01-15] MEDS: QUEtiapine 50 MG TABLET. PO SCH ×3 (09:37→20:15)
[2017-01-15] MEDS: ATORVASTATIN CALCIUM 20 MG TABLET PO SCH (09:37)
[2017-01-15] MEDS: POLYETHYLENE GLYCOL 3350 17 GM PACKET. PO SCH (09:37)
[2017-01-15] MEDS: NICOTINE 14MG PATCH. TD SCH (09:38)
[2017-01-15] MEDS: SERTRALINE 25 MG TABLET. PO SCH (09:38)
--- NOTE | 2017-01-15 10:22 | NUR ---
Behavior Intervention Response and Plan: BIRP Note: Behavior: Assumed Care of patient, patient located in patient room at shift change. Patient exhibited the following behavior Disorganized, Compliant, tearful, word salad. Brief assessment on rounds of vital signs, medication needs, lab studies, and pain. Treatment plan problems . Intervention: Patient assessed and the following interventions initiated safety checks 15 Minute Checks Cognitive Assessment , Head to toe Assessment , Medications. Response: After interactions and interventions patient responded in the following manner, Disorganized, Compliant, confused, Cooperative. Continue to assess behaviors and condition will continue to monitor throughout the shift as needed. Patient educated on ADL's, and hand hygiene. Plan: Continue to monitor Master Treatment Plan for patient's progress toward short term goals of Decreased Agitation, Decreased Aggression, care home goals to return to previous living setting vs placement. Continue to assess patient for changes in above assessment. Monitor for medication needs, pain, and safety concerns. Hourly rounding performed to ensure safe environment.
[2017-01-15 16:09] VITALS: BP 132/81
--- NOTE | 2017-01-15 20:06 | PDOC ---
Exam Anson Demential Exam: Anson Note: Please also refer to the separate dictated note~for this date of service dictated separately.~Patient seen individually. Discussed the patient with Nursing staff reviewed the chart.~Reviewed interim history and current functioning. Reviewed vital signs,~Labs/ Radiology~and current medications noted below. Continue current treatment with the changes noted in the dictated addendum note Assessment: Vital Signs: Vital Signs Date Time Temp Pulse Resp B/P (MAP) Pulse Ox O2 Delivery O2 Flow Rate FiO2 01/15/17 16:09 97.9 82 18 132/81 (98) 94 01/13/17 16:40 Room Air I&O Intake and Output 01/16/17 07:00 Intake Total 840 ml Balance 840 ml Intake Oral 840 ml Current Medications: Meds: Current Medications Nicotine (Nicoderm Cq 21mg) 1 patch DAILY TD Last administered on 01/06/17 09: 13; Start 12/24/16 at 09:00; Stop 01/07/17 at 09:00; Status DC Risperidone (RisperDAL) 1 mg BID PO Last administered on 12/24/16 09:07; Start 12/23/16 at 22:00; Stop 12/24/16 at 16:36; Status DC Acetaminophen (Tylenol) 650 mg PRN Q4HRS PRN PO PAIN / TEMP; Start 12/23/16 at 21:30 Aspirin (Children'S Aspirin) 81 mg DAILY PO Last administered on 01/15/17 09: 37; Start 12/24/16 at 09:00 Bisacodyl (Dulcolax Supp) 10 mg PRN DAILY PRN RC CONSTIPATION; Start 12/23/16 at 21:30 Docusate Sodium (Colace) 100 mg BID PO Last administered on 01/15/17 09:37; Start 12/24/16 at 09:00 Famotidine (Pepcid) 20 mg PRN BID PRN PO DYSPEPSIA Last administered on 20:30; Start 12/23/16 at 21:30 Magnesium Hydroxide (Milk Of Magnesia) 2,400 mg PRN DAILY PRN PO CONSTIPATION; Start 12/23/16 at 21:30 Polyethylene Glycol (miraLAX) 17 gm DAILY PO Last administered on 01/15/17 09: 37; Start 12/24/16 at 09:00 Sennosides (Senna) 8.6 mg PRN BID PRN PO CONSTIPATION; Start 12/23/16 at 21:30 Atorvastatin Calcium (Lipitor) 40 mg DAILY PO Last administered on 01/15/17 09 :37; Start 12/24/16 at 09:00 Al Hydroxide/Mg Hydroxide (Mylanta Plus Xs) 15 ml PRN AFTMEALHC PRN PO DYSPEPSIA; Start 12/23/16 at 21:30 Multi-Ingredient Ointment (Analgesic [place]) 1 josiane PRN QID PRN TP MUSCLE PAIN; Start 12/23/16 at 21:30 Olanzapine (ZyPREXA ZYDIS) 2.5 mg PRN Q2HR PRN PO ANXIETY / AGITATION Last administered on 12/28/16 15:39; Start 12/23/16 at 21:30 Risperidone (RisperDAL) 1 mg BID PO Last administered on 12/25/16 19:17; Start 12/24/16 at 21:00; Stop 12/25/16 at 21:44; Status DC Risperidone (RisperDAL) 1 mg HS PO ; Start 12/26/16 at 21:00; Stop 12/26/16 at 21:00; Status DC Risperidone (RisperDAL) 0.5 mg DAILY PO Last administered on 12/26/16 09:33; Start 12/26/16 at 09:00; Stop 12/26/16 at 18:34; Status DC Sertraline HCl (Zoloft) 50 mg DAILY PO Last administered on 01/04/17 08:20; Start 12/26/16 at 09:00; Stop 01/04/17 at 18:44; Status DC Vitamin D (Vitamin D3) 50,000 unit WEEKLY PO Last administered on 01/03/17 08: 56; Start 12/27/16 at 09:00 Mirtazapine (Remeron) 7.5 mg QHS PO Last administered on 12/26/16 21:14; Start 12/26/16 at 21:00; Stop 12/27/16 at 18:37; Status DC Quetiapine Fumarate (SEROquel) 12.5 mg BID92 PO Last administered on 12/28/16 14:07; Start 12/27/16 at 09:00; Stop 12/28/16 at 18:51; Status DC Quetiapine Fumarate (SEROquel) 25 mg HS PO Last administered on 12/26/16 21:13 ; Start 12/26/16 at 21:00; Stop 12/27/16 at 18:37; Status DC Mirtazapine (Remeron) 15 mg QHS PO Last administered on 01/14/17 20:53; Start 12/27/16 at 21:00 Quetiapine Fumarate (SEROquel) 50 mg HS PO Last administered on 12/27/16 19:36 ; Start 12/27/16 at 21:00; Stop 12/28/16 at 18:51; Status DC Trazodone HCl (Desyrel) 50 mg QHS PO Last administered on 12/27/16 19:36; Start 12/27/16 at 21:00; Stop 12/28/16 at 18:53; Status DC Trazodone HCl (Desyrel) 50 mg PRN DAILY PRN PO INSOMNIA, MAY REPEAT IN 1HR; Start 12/27/16 at 18:45 Trazodone HCl (Desyrel) 50 mg PRN QHS PRN PO INSOMNIA, MAY REPEAT X1; Start at 13:15; Stop 12/28/16 at 18:53; Status DC Lorazepam (Ativan Intensol) 2 mg PRN Q2HR PRN SL ANXIETY / AGITATION; Start at 15:30; Stop 12/28/16 at 15:37; Status DC Lorazepam (Ativan Intensol) 0.5 mg PRN Q2HR PRN SL ANXIETY / AGITATION Last administered on 01/12/17 10:56; Start 12/28/16 at 15:45 Quetiapine Fumarate (SEROquel) 75 mg HS PO Last administered on 01/14/17 20:53 ; Start 12/28/16 at 21:00 Quetiapine Fumarate (SEROquel) 50 mg BID92 PO Last administered on 01/15/17 14 :30; Start 12/29/16 at 09:00 Trazodone HCl (Desyrel) 100 mg HS PO Last administered on 01/14/17 20:54; Start 12/28/16 at 21:00 Trazodone HCl (Desyrel) 100 mg PRN QHS PRN PO INSOMNIA MAY REPEAT X1 Last administered on 12/28/16 19:48; Start 12/28/16 at 19:00 Valproic Acid (Depakene) 250 mg BID PO Last administered on 01/10/17 20:14; Start 12/28/16 at 21:00; Stop 01/11/17 at 04:43; Status DC Cyanocobalamin (Vitamin B-12) 1,000 mcg DAILY PO Last administered on 09:37; Start 01/04/17 at 09:00 Sertraline HCl (Zoloft) 75 mg DAILY PO Last administered on 01/15/17 09:38; Start 01/05/17 at 09:00 Nicotine (Nicoderm Cq 14mg) 1 patch DAILY TD Last administered on 01/15/17 09: 38; Start 01/07/17 at 09:00 Divalproex Sodium (Depakote Sprinkles) 250 mg BID PO Last administered on 09:37; Start 01/11/17 at 09:00 Active Scripts Active Reported Haldol (Haloperidol Lactate) 5 Mg/1 Ml Ampul 2 Mg SUBCUT PRN Q4HRS PRN Famotidine 20 Mg Tablet 20 Mg PO PRN BID PRN Senna (Sennosides) 8.6 Mg Tablet 8.6 Mg PO PRN BID PRN Milk Of Magnesia (Magnesium Hydroxide) 400 Mg/5 Ml Oral.susp 2,400 Mg PO PRN DAILY PRN Dulcolax (Bisacodyl) 10 Mg Supp.rect 10 Mg RC PRN DAILY Tylenol (Acetaminophen) 325 Mg Tablet 650 Mg PO Q4HRS PRN Risperidone 1 Mg/1 Ml Disp.syrin 1 Mg PO BID Polyethylene Glycol 3350 255 Gm Powder 17 Gm PO DAILY Docusate Sodium 100 Mg Capsule 100 Mg PO BID Atorvastatin Calcium 40 Mg Tablet 40 Mg PO DAILY Aspirin 81 Mg Tab.chew 81 Mg PO DAILY Diagnosis: Problems: (1) Anxiety disorder (2) Dementia, vascular, with delusions (3) Dementia, vascular, with depression (4) Impulse control disorder RELL PUENTE MD Jan 15, 2017 20:06
[2017-01-15] MEDS: MIRTAZAPINE 15 MG TABLET PO SCH (20:11)
[2017-01-15] MEDS: traZODone 100 MG TABLET. PO SCH (20:11)
--- NOTE | 2017-01-15 22:38 | NUR ---
Behavior Intervention Response and Plan: BIRP Note: Behavior: Assumed Care of patient, patient located in Bed at shift change. Patient exhibited the following behavior Calm, Disorganized, Withdrawn. Brief assessment on rounds of vital signs, medication needs, lab studies, and pain. Treatment plan problems :1-2 Intervention: Patient assessed and the following interventions initiated safety checks 15 Minute Checks Cognitive Assessment , Head to toe Assessment , Medications. Response: After interactions and interventions patient responded in the following manner, Disorganized , Cooperative ,Withdrawn. Continue to assess behaviors and condition will continue to monitor throughout the shift as needed. Patient educated on ADL's, and hand hygiene. 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 Continue to assess patient for changes in above assessment. Monitor for medication needs, pain, and safety concerns. Hourly rounding performed to ensure safe environment.
--- NOTE | 2017-01-16 01:27 | PN ---
DATE: 01/14/2017 This late entry of 01/14/2017 covers elements not covered in my initial note of 01/14/2017. SUBJECTIVE: I met with the patient in the evening of 01/14/2017. She remains confused with significant expressive aphasia, but was pleasant, smiling, as I met with her the evening of 01/14/2017. REVIEW OF SYSTEMS: No CV, , pulmonary, eye, ENT system symptoms on review. Reliability poor. MENTAL STATUS EXAM: Oriented to herself. Insight, judgment, recent and remote memory, attention, concentration, fund of knowledge poor, consistent with diagnosis as mentioned in my initial note. LABORATORY DATA: Reviewed. PLAN: Continue psychotropics mentioned in my initial note. Reviewed drug interactions. Risk/benefit ratio favors no further change. Transition to a lower level of care this coming week. MAN Ketan PUENTE MD DR: BRIONNA/gui JOB#: [id number] / [id number]
[2017-01-16 06:26] VITALS: BP 100/64
[2017-01-16] MEDS: ASPIRIN 81 MG TAB.CHEW PO SCH (09:36)
[2017-01-16] MEDS: DOCUSATE SODIUM 100 MG CAPSULE PO SCH ×2 (09:36→20:09)
[2017-01-16] MEDS: DIVALPROEX 125 MG CAP.SPRINK PO SCH ×2 (09:36→20:09)
[2017-01-16] MEDS: ATORVASTATIN CALCIUM 20 MG TABLET PO SCH (09:39)
[2017-01-16] MEDS: SERTRALINE 25 MG TABLET. PO SCH (09:40)
[2017-01-16] MEDS: QUEtiapine 50 MG TABLET. PO SCH ×3 (09:40→20:10)
[2017-01-16] MEDS: POLYETHYLENE GLYCOL 3350 17 GM PACKET. PO SCH (09:40)
[2017-01-16] MEDS: CYANOCOBALAMIN (VITAMIN B-12) 1,000 MCG TABLET. PO SCH (09:40)
[2017-01-16] MEDS: NICOTINE 14MG PATCH. TD SCH (09:41)
--- NOTE | 2017-01-16 10:00 | NUR ---
THERAPEUTIC RECREATION GROUP NOTE TITLE :Fall Festival Decoration ACTIVITY : Arts/ Crafts GOAL : Increase socialization, fine motor skills, creativity DURATION : 90 Minutes RESPONSE : Minimal participation. Pt. started with the group and colored an entire picture. She was not interested in doing another one and politely excused herself from the group. She did not return.
--- NOTE | 2017-01-16 10:46 | NUR ---
Behavior Intervention Response and Plan: BIRP Note: Behavior: Assumed Care of patient, patient located in patient room at shift change. Patient exhibited the following behavior Disorganized, Compliant, withdrawn, word salad. Brief assessment on rounds of vital signs, medication needs, lab studies, and pain. Treatment plan problems . Intervention: Patient assessed and the following interventions initiated safety checks 15 Minute Checks Cognitive Assessment , Head to toe Assessment , Medications. Response: After interactions and interventions patient responded in the following manner, Disorganized, Compliant, confused, Cooperative. Continue to assess behaviors and condition will continue to monitor throughout the shift as needed. Patient educated on ADL's, and hand hygiene. 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 Continue to assess patient for changes in above assessment. Monitor for medication needs, pain, and safety concerns. Hourly rounding performed to ensure safe environment.
--- NOTE | 2017-01-16 14:00 | NUR ---
THERAPEUTIC RECREATION GROUP NOTE TITLE :Picture Puzzles ACTIVITY : Cognitive Stimulation GOAL : Maintain or improve cognitive functioning and memory. DURATION : 60 Minutes RESPONSE : No participation.
--- NOTE | 2017-01-16 14:07 | NUR ---
Group Note [facility] Group Type Enthusiasm and Attitude Start Time: 1:10 End Time: 2:00pm Problem: Depression Purpose: Increase Motivation,increased positivity, socialization, elevate mood, express feelings, Level of Participation: Absent Behaviors or Symptoms Observed: Interventions: Reframing Response: Plan: Group Participation Additional Comments:
[2017-01-16 16:24] VITALS: BP 94/65
--- NOTE | 2017-01-16 20:00 | PDOC ---
Exam Anson Demential Exam: Anson Note: Please also refer to the separate dictated note~for this date of service dictated separately.~Patient seen individually. Discussed the patient with Nursing staff reviewed the chart.~Reviewed interim history and current functioning. Reviewed vital signs,~Labs/ Radiology~and current medications noted below. Continue current treatment with the changes noted in the dictated addendum note Assessment: Vital Signs: Vital Signs Date Time Temp Pulse Resp B/P (MAP) Pulse Ox O2 Delivery O2 Flow Rate FiO2 01/16/17 16:24 97.6 95 18 94/65 (75) 98 01/13/17 16:40 Room Air I&O Intake and Output 01/17/17 07:00 Intake Total 840 ml Balance 840 ml Intake Oral 840 ml Current Medications: Meds: Current Medications Nicotine (Nicoderm Cq 21mg) 1 patch DAILY TD Last administered on 01/06/17 09: 13; Start 12/24/16 at 09:00; Stop 01/07/17 at 09:00; Status DC Risperidone (RisperDAL) 1 mg BID PO Last administered on 12/24/16 09:07; Start 12/23/16 at 22:00; Stop 12/24/16 at 16:36; Status DC Acetaminophen (Tylenol) 650 mg PRN Q4HRS PRN PO PAIN / TEMP; Start 12/23/16 at 21:30 Aspirin (Children'S Aspirin) 81 mg DAILY PO Last administered on 01/16/17 09: 36; Start 12/24/16 at 09:00 Bisacodyl (Dulcolax Supp) 10 mg PRN DAILY PRN RC CONSTIPATION; Start 12/23/16 at 21:30 Docusate Sodium (Colace) 100 mg BID PO Last administered on 01/16/17 09:36; Start 12/24/16 at 09:00 Famotidine (Pepcid) 20 mg PRN BID PRN PO DYSPEPSIA Last administered on 20:30; Start 12/23/16 at 21:30 Magnesium Hydroxide (Milk Of Magnesia) 2,400 mg PRN DAILY PRN PO CONSTIPATION; Start 12/23/16 at 21:30 Polyethylene Glycol (miraLAX) 17 gm DAILY PO Last administered on 01/16/17 09: 40; Start 12/24/16 at 09:00 Sennosides (Senna) 8.6 mg PRN BID PRN PO CONSTIPATION; Start 12/23/16 at 21:30 Atorvastatin Calcium (Lipitor) 40 mg DAILY PO Last administered on 01/16/17 09 :39; Start 12/24/16 at 09:00 Al Hydroxide/Mg Hydroxide (Mylanta Plus Xs) 15 ml PRN AFTMEALHC PRN PO DYSPEPSIA; Start 12/23/16 at 21:30 Multi-Ingredient Ointment (Analgesic [place]) 1 josiane PRN QID PRN TP MUSCLE PAIN; Start 12/23/16 at 21:30 Olanzapine (ZyPREXA ZYDIS) 2.5 mg PRN Q2HR PRN PO ANXIETY / AGITATION Last administered on 12/28/16 15:39; Start 12/23/16 at 21:30 Risperidone (RisperDAL) 1 mg BID PO Last administered on 12/25/16 19:17; Start 12/24/16 at 21:00; Stop 12/25/16 at 21:44; Status DC Risperidone (RisperDAL) 1 mg HS PO ; Start 12/26/16 at 21:00; Stop 12/26/16 at 21:00; Status DC Risperidone (RisperDAL) 0.5 mg DAILY PO Last administered on 12/26/16 09:33; Start 12/26/16 at 09:00; Stop 12/26/16 at 18:34; Status DC Sertraline HCl (Zoloft) 50 mg DAILY PO Last administered on 01/04/17 08:20; Start 12/26/16 at 09:00; Stop 01/04/17 at 18:44; Status DC Vitamin D (Vitamin D3) 50,000 unit WEEKLY PO Last administered on 01/03/17 08: 56; Start 12/27/16 at 09:00 Mirtazapine (Remeron) 7.5 mg QHS PO Last administered on 12/26/16 21:14; Start 12/26/16 at 21:00; Stop 12/27/16 at 18:37; Status DC Quetiapine Fumarate (SEROquel) 12.5 mg BID92 PO Last administered on 12/28/16 14:07; Start 12/27/16 at 09:00; Stop 12/28/16 at 18:51; Status DC Quetiapine Fumarate (SEROquel) 25 mg HS PO Last administered on 12/26/16 21:13 ; Start 12/26/16 at 21:00; Stop 12/27/16 at 18:37; Status DC Mirtazapine (Remeron) 15 mg QHS PO Last administered on 01/15/17 20:11; Start 12/27/16 at 21:00 Quetiapine Fumarate (SEROquel) 50 mg HS PO Last administered on 12/27/16 19:36 ; Start 12/27/16 at 21:00; Stop 12/28/16 at 18:51; Status DC Trazodone HCl (Desyrel) 50 mg QHS PO Last administered on 12/27/16 19:36; Start 12/27/16 at 21:00; Stop 12/28/16 at 18:53; Status DC Trazodone HCl (Desyrel) 50 mg PRN DAILY PRN PO INSOMNIA, MAY REPEAT IN 1HR; Start 12/27/16 at 18:45 Trazodone HCl (Desyrel) 50 mg PRN QHS PRN PO INSOMNIA, MAY REPEAT X1; Start at 13:15; Stop 12/28/16 at 18:53; Status DC Lorazepam (Ativan Intensol) 2 mg PRN Q2HR PRN SL ANXIETY / AGITATION; Start at 15:30; Stop 12/28/16 at 15:37; Status DC Lorazepam (Ativan Intensol) 0.5 mg PRN Q2HR PRN SL ANXIETY / AGITATION Last administered on 01/12/17 10:56; Start 12/28/16 at 15:45 Quetiapine Fumarate (SEROquel) 75 mg HS PO Last administered on 01/15/17 20:15 ; Start 12/28/16 at 21:00 Quetiapine Fumarate (SEROquel) 50 mg BID92 PO Last administered on 01/16/17 13 :58; Start 12/29/16 at 09:00 Trazodone HCl (Desyrel) 100 mg HS PO Last administered on 01/15/17 20:11; Start 12/28/16 at 21:00 Trazodone HCl (Desyrel) 100 mg PRN QHS PRN PO INSOMNIA MAY REPEAT X1 Last administered on 12/28/16 19:48; Start 12/28/16 at 19:00 Valproic Acid (Depakene) 250 mg BID PO Last administered on 01/10/17 20:14; Start 12/28/16 at 21:00; Stop 01/11/17 at 04:43; Status DC Cyanocobalamin (Vitamin B-12) 1,000 mcg DAILY PO Last administered on 09:40; Start 01/04/17 at 09:00 Sertraline HCl (Zoloft) 75 mg DAILY PO Last administered on 01/16/17 09:40; Start 01/05/17 at 09:00 Nicotine (Nicoderm Cq 14mg) 1 patch DAILY TD Last administered on 01/16/17 09: 41; Start 01/07/17 at 09:00 Divalproex Sodium (Depakote Sprinkles) 250 mg BID PO Last administered on 09:36; Start 01/11/17 at 09:00 Active Scripts Active Reported Haldol (Haloperidol Lactate) 5 Mg/1 Ml Ampul 2 Mg SUBCUT PRN Q4HRS PRN Famotidine 20 Mg Tablet 20 Mg PO PRN BID PRN Senna (Sennosides) 8.6 Mg Tablet 8.6 Mg PO PRN BID PRN Milk Of Magnesia (Magnesium Hydroxide) 400 Mg/5 Ml Oral.susp 2,400 Mg PO PRN DAILY PRN Dulcolax (Bisacodyl) 10 Mg Supp.rect 10 Mg RC PRN DAILY Tylenol (Acetaminophen) 325 Mg Tablet 650 Mg PO Q4HRS PRN Risperidone 1 Mg/1 Ml Disp.syrin 1 Mg PO BID Polyethylene Glycol 3350 255 Gm Powder 17 Gm PO DAILY Docusate Sodium 100 Mg Capsule 100 Mg PO BID Atorvastatin Calcium 40 Mg Tablet 40 Mg PO DAILY Aspirin 81 Mg Tab.chew 81 Mg PO DAILY Diagnosis: Problems: (1) Anxiety disorder (2) Dementia, vascular, with delusions (3) Dementia, vascular, with depression (4) Impulse control disorder RELL PUENTE MD Jan 16, 2017 20:00
[2017-01-16] MEDS: traZODone 100 MG TABLET. PO SCH (20:09)
[2017-01-16] MEDS: MIRTAZAPINE 15 MG TABLET PO SCH (20:09)
[2017-01-17 06:08] VITALS: BP 96/62
--- NOTE | 2017-01-17 06:08 | PN ---
DATE: 01/15/2017 SUBJECTIVE: This is a late entry 01/15/2017, covers elements not covered in my initial note of 01/15/2017. Met with the patient evening of 01/15/2017. Per nursing report, the patient has been tearful at times wanting to leave, does get redirected and reassured. Had a better day on 01/15/2017. REVIEW OF SYSTEMS: No CV, , pulmonary, eye, or ENT system symptoms on review. Reliability poor. MENTAL STATUS EXAM: Oriented to herself. Insight, judgment, recent and remote memory, attention, concentration, fund of knowledge poor, consistent with her diagnosis. Expressive aphasia significant; otherwise, pleasant and smiling as I met with her. LABORATORY DATA: Reviewed. IMPRESSION: Unchanged from initial note. PLAN: Continue psychotropics mentioned in my initial note. Reviewed drug interaction. Risk/benefit ratio favors no further change as of now. RELL PUENTE MD DR: BRIONNA/gui JOB#: [id number] / [id number]
[2017-01-17] MEDS: QUEtiapine 50 MG TABLET. PO SCH ×3 (08:33→20:18)
[2017-01-17] MEDS: NICOTINE 14MG PATCH. TD SCH (08:33)
[2017-01-17] MEDS: CHOLECALCIFEROL (VITAMIN D3) 50,000 UNIT CAPSULE PO SCH (08:33)
[2017-01-17] MEDS: SERTRALINE 25 MG TABLET. PO SCH (08:33)
[2017-01-17] MEDS: POLYETHYLENE GLYCOL 3350 17 GM PACKET. PO SCH (08:33)
[2017-01-17] MEDS: DOCUSATE SODIUM 100 MG CAPSULE PO SCH ×2 (08:33→20:18)
[2017-01-17] MEDS: ASPIRIN 81 MG TAB.CHEW PO SCH (08:33)
[2017-01-17] MEDS: CYANOCOBALAMIN (VITAMIN B-12) 1,000 MCG TABLET. PO SCH (08:33)
[2017-01-17] MEDS: DIVALPROEX 125 MG CAP.SPRINK PO SCH ×2 (08:33→20:19)
[2017-01-17] MEDS: ATORVASTATIN CALCIUM 20 MG TABLET PO SCH (08:34)
--- NOTE | 2017-01-17 10:08 | NUR ---
Behavior Intervention Response and Plan: BIRP Note: Behavior: Assumed Care of patient, patient located in Hallway at shift change. Patient exhibited the following behavior Calm, Cooperative, Withdrawn. Brief assessment on rounds of vital signs, medication needs, lab studies, and pain. Treatment plan problems 1-2. Intervention: Patient assessed and the following interventions initiated safety checks 15 Minute Checks Cognitive Assessment , Head to toe Assessment , Medications. Response: After interactions and interventions patient responded in the following manner, Disorganized , Withdrawn ,Compliant. Continue to assess behaviors and condition will continue to monitor throughout the shift as needed. Patient educated on ADL's, and hand hygiene. 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 Continue to assess patient for changes in above assessment. Monitor for medication needs, pain, and safety concerns. Hourly rounding performed to ensure safe environment.
--- NOTE | 2017-01-17 10:30 | NUR ---
THERAPEUTIC RECREATION GROUP NOTE TITLE :40 Ways to Relax in 5 ACTIVITY : Relaxation GOAL : Decrease stress, elevate mood, increase concentration/attention, encourage awareness DURATION : 60 Minutes RESPONSE : No participation
--- NOTE | 2017-01-17 12:44 | NUR ---
SHIRLEY has left 2 messages for Ni at [facility].
--- NOTE | 2017-01-17 14:00 | NUR ---
THERAPEUTIC RECREATION GROUP NOTE TITLE :Sing along with Keshia ACTIVITY : Music GOAL : Increase socialization, elevate mood, stimulate memory DURATION : 60 minutes RESPONSE : Minimal participation. Pt. joined the group towards the end. She sat quietly and calmly but did not sing along with the songs.
--- NOTE | 2017-01-17 14:31 | NUR ---
SW left a message for Anh at [facility] and PT's son, Coy regarding dc plans. This SW has not received a return call from the facility or [facility] regarding dc plans.
--- NOTE | 2017-01-17 15:04 | NUR ---
SHIRLEY left message and received return call from Pt's son, Coy regarding dc plans. Coy reported to this SW he had just left [facility], signing admission paperwork and organizing Pt's belongings. Coy was told dc would be set for "Monday evening". He was not able to get additional details to the picking machine operator time or further dc needs. Coy told this SW to contact Mirza as he was told today Ni was out of the office. SHIRLEY called [facility] and asked to speak to either Marie or Mirza. SHIRLEY was sent to Mirza's voicemail. SHIRLEY asked for a rep to contact this SW to further plan for dc on Monday.
[2017-01-17 15:55] VITALS: BP 116/83
--- NOTE | 2017-01-17 19:58 | PDOC ---
Exam Anson Demential Exam: Anson Note: Please also refer to the separate dictated note~for this date of service dictated separately.~Patient seen individually. Discussed the patient with Nursing staff reviewed the chart.~Reviewed interim history and current functioning. Reviewed vital signs,~Labs/ Radiology~and current medications noted below. Continue current treatment with the changes noted in the dictated addendum note Assessment: Vital Signs: Vital Signs Date Time Temp Pulse Resp B/P (MAP) Pulse Ox O2 Delivery O2 Flow Rate FiO2 01/17/17 15:55 97.6 80 20 116/83 (94) 97 01/13/17 16:40 Room Air I&O Intake and Output 01/18/17 07:00 Intake Total 120 ml Balance 120 ml Intake Oral 120 ml Current Medications: Meds: Current Medications Nicotine (Nicoderm Cq 21mg) 1 patch DAILY TD Last administered on 01/06/17 09: 13; Start 12/24/16 at 09:00; Stop 01/07/17 at 09:00; Status DC Risperidone (RisperDAL) 1 mg BID PO Last administered on 12/24/16 09:07; Start 12/23/16 at 22:00; Stop 12/24/16 at 16:36; Status DC Acetaminophen (Tylenol) 650 mg PRN Q4HRS PRN PO PAIN / TEMP; Start 12/23/16 at 21:30 Aspirin (Children'S Aspirin) 81 mg DAILY PO Last administered on 01/17/17 08: 33; Start 12/24/16 at 09:00 Bisacodyl (Dulcolax Supp) 10 mg PRN DAILY PRN RC CONSTIPATION; Start 12/23/16 at 21:30 Docusate Sodium (Colace) 100 mg BID PO Last administered on 01/17/17 08:33; Start 12/24/16 at 09:00 Famotidine (Pepcid) 20 mg PRN BID PRN PO DYSPEPSIA Last administered on 20:30; Start 12/23/16 at 21:30 Magnesium Hydroxide (Milk Of Magnesia) 2,400 mg PRN DAILY PRN PO CONSTIPATION; Start 12/23/16 at 21:30 Polyethylene Glycol (miraLAX) 17 gm DAILY PO Last administered on 01/17/17 08: 33; Start 12/24/16 at 09:00 Sennosides (Senna) 8.6 mg PRN BID PRN PO CONSTIPATION; Start 12/23/16 at 21:30 Atorvastatin Calcium (Lipitor) 40 mg DAILY PO Last administered on 01/17/17 08 :34; Start 12/24/16 at 09:00 Al Hydroxide/Mg Hydroxide (Mylanta Plus Xs) 15 ml PRN AFTMEALHC PRN PO DYSPEPSIA; Start 12/23/16 at 21:30 Multi-Ingredient Ointment (Analgesic [place]) 1 josiane PRN QID PRN TP MUSCLE PAIN; Start 12/23/16 at 21:30 Olanzapine (ZyPREXA ZYDIS) 2.5 mg PRN Q2HR PRN PO ANXIETY / AGITATION Last administered on 12/28/16 15:39; Start 12/23/16 at 21:30 Risperidone (RisperDAL) 1 mg BID PO Last administered on 12/25/16 19:17; Start 12/24/16 at 21:00; Stop 12/25/16 at 21:44; Status DC Risperidone (RisperDAL) 1 mg HS PO ; Start 12/26/16 at 21:00; Stop 12/26/16 at 21:00; Status DC Risperidone (RisperDAL) 0.5 mg DAILY PO Last administered on 12/26/16 09:33; Start 12/26/16 at 09:00; Stop 12/26/16 at 18:34; Status DC Sertraline HCl (Zoloft) 50 mg DAILY PO Last administered on 01/04/17 08:20; Start 12/26/16 at 09:00; Stop 01/04/17 at 18:44; Status DC Vitamin D (Vitamin D3) 50,000 unit WEEKLY PO Last administered on 01/17/17 08: 33; Start 12/27/16 at 09:00 Mirtazapine (Remeron) 7.5 mg QHS PO Last administered on 12/26/16 21:14; Start 12/26/16 at 21:00; Stop 12/27/16 at 18:37; Status DC Quetiapine Fumarate (SEROquel) 12.5 mg BID92 PO Last administered on 12/28/16 14:07; Start 12/27/16 at 09:00; Stop 12/28/16 at 18:51; Status DC Quetiapine Fumarate (SEROquel) 25 mg HS PO Last administered on 12/26/16 21:13 ; Start 12/26/16 at 21:00; Stop 12/27/16 at 18:37; Status DC Mirtazapine (Remeron) 15 mg QHS PO Last administered on 01/16/17 20:09; Start 12/27/16 at 21:00 Quetiapine Fumarate (SEROquel) 50 mg HS PO Last administered on 12/27/16 19:36 ; Start 12/27/16 at 21:00; Stop 12/28/16 at 18:51; Status DC Trazodone HCl (Desyrel) 50 mg QHS PO Last administered on 12/27/16 19:36; Start 12/27/16 at 21:00; Stop 12/28/16 at 18:53; Status DC Trazodone HCl (Desyrel) 50 mg PRN DAILY PRN PO INSOMNIA, MAY REPEAT IN 1HR; Start 12/27/16 at 18:45 Trazodone HCl (Desyrel) 50 mg PRN QHS PRN PO INSOMNIA, MAY REPEAT X1; Start at 13:15; Stop 12/28/16 at 18:53; Status DC Lorazepam (Ativan Intensol) 2 mg PRN Q2HR PRN SL ANXIETY / AGITATION; Start at 15:30; Stop 12/28/16 at 15:37; Status DC Lorazepam (Ativan Intensol) 0.5 mg PRN Q2HR PRN SL ANXIETY / AGITATION Last administered on 01/12/17 10:56; Start 12/28/16 at 15:45 Quetiapine Fumarate (SEROquel) 75 mg HS PO Last administered on 01/16/17 20:10 ; Start 12/28/16 at 21:00 Quetiapine Fumarate (SEROquel) 50 mg BID92 PO Last administered on 01/17/17 14 :57; Start 12/29/16 at 09:00 Trazodone HCl (Desyrel) 100 mg HS PO Last administered on 01/16/17 20:09; Start 12/28/16 at 21:00 Trazodone HCl (Desyrel) 100 mg PRN QHS PRN PO INSOMNIA MAY REPEAT X1 Last administered on 12/28/16 19:48; Start 12/28/16 at 19:00 Valproic Acid (Depakene) 250 mg BID PO Last administered on 01/10/17 20:14; Start 12/28/16 at 21:00; Stop 01/11/17 at 04:43; Status DC Cyanocobalamin (Vitamin B-12) 1,000 mcg DAILY PO Last administered on 08:33; Start 01/04/17 at 09:00 Sertraline HCl (Zoloft) 75 mg DAILY PO Last administered on 01/17/17 08:33; Start 01/05/17 at 09:00 Nicotine (Nicoderm Cq 14mg) 1 patch DAILY TD Last administered on 01/17/17 08: 33; Start 01/07/17 at 09:00 Divalproex Sodium (Depakote Sprinkles) 250 mg BID PO Last administered on 08:33; Start 01/11/17 at 09:00 Active Scripts Active Reported Haldol (Haloperidol Lactate) 5 Mg/1 Ml Ampul 2 Mg SUBCUT PRN Q4HRS PRN Famotidine 20 Mg Tablet 20 Mg PO PRN BID PRN Senna (Sennosides) 8.6 Mg Tablet 8.6 Mg PO PRN BID PRN Milk Of Magnesia (Magnesium Hydroxide) 400 Mg/5 Ml Oral.susp 2,400 Mg PO PRN DAILY PRN Dulcolax (Bisacodyl) 10 Mg Supp.rect 10 Mg RC PRN DAILY Tylenol (Acetaminophen) 325 Mg Tablet 650 Mg PO Q4HRS PRN Risperidone 1 Mg/1 Ml Disp.syrin 1 Mg PO BID Polyethylene Glycol 3350 255 Gm Powder 17 Gm PO DAILY Docusate Sodium 100 Mg Capsule 100 Mg PO BID Atorvastatin Calcium 40 Mg Tablet 40 Mg PO DAILY Aspirin 81 Mg Tab.chew 81 Mg PO DAILY Diagnosis: Problems: (1) Anxiety disorder (2) Dementia, vascular, with delusions (3) Dementia, vascular, with depression (4) Impulse control disorder RELL PUENTE MD Jan 17, 2017 19:58
--- NOTE | 2017-01-17 20:00 | NUR ---
Behavior Intervention Response and Plan: BIRP Note: Behavior: Assumed Care of patient, patient located in Day Room at shift change. Patient exhibited the following behavior Calm, Social, Compliant. Brief assessment on rounds of vital signs, medication needs, lab studies, and pain. Treatment plan problems . Intervention: Patient assessed and the following interventions initiated safety checks 15 Minute Checks Cognitive Assessment , Head to toe Assessment , Medications. Response: After interactions and interventions patient responded in the following manner, Interactive , Calm ,Social. Continue to assess behaviors and condition will continue to monitor throughout the shift as needed. Patient educated on ADL's, and hand hygiene. 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 Continue to assess patient for changes in above assessment. Monitor for medication needs, pain, and safety concerns. Hourly rounding performed to ensure safe environment.
[2017-01-17] MEDS: traZODone 100 MG TABLET. PO SCH (20:17)
[2017-01-17] MEDS: MIRTAZAPINE 15 MG TABLET PO SCH (20:19)
[2017-01-18] MEDS ORDERED: MIRT15TA3 PO (00:34)
[2017-01-18] MEDS ORDERED: OLAN5TAB5 PO (00:36)
[2017-01-18] MEDS ORDERED: QUET25TA5 PO (00:39)
[2017-01-18] MEDS ORDERED: QUET50TA5 PO ×3 (00:40→10:16)
[2017-01-18] MEDS ORDERED: SERT25TA PO (00:41)
[2017-01-18] MEDS ORDERED: TRAZ-90 PO ×2 (00:42→00:47)
[2017-01-18] MEDS ORDERED: TRAZ50TA15 PO ×3 (00:44→10:19)
[2017-01-18] MEDS ORDERED: CHOL500021 PO (00:51)
[2017-01-18] MEDS ORDERED: CYAN10005 PO ×2 (00:52→10:08)
[2017-01-18] MEDS ORDERED: DIVA125C PO ×2 (00:56→10:08)
--- NOTE | 2017-01-18 05:34 | PN ---
DATE: 01/16/2017 This late entry for 01/16/2017 covers elements not covered in my initial note of 01/16/2017. SUBJECTIVE: I met with the patient in the evening of 01/16/2017. The patient remains confused, has expressive aphasia, but otherwise redirectable. Speech is word salad. REVIEW OF SYSTEMS: No CV, , pulmonary, eye, ENT system symptoms on review. MENTAL STATUS EXAM: Oriented to herself. Insight, judgment, recent and remote memory, attention, concentration, fund of knowledge poor, consistent with her diagnosis mentioned in my initial note. PLAN: Continue current psychotropics mentioned in my initial note. MAN Ketan PUENTE MD DR: BRIONNA/gui JOB#: [id number] / [id number]
[2017-01-18 05:54] VITALS: BP 98/63
--- NOTE | 2017-01-18 08:02 | NUR ---
[facility] Social Work Discharge Planning Form Patient Name GITA CASTELLON Admit Date: 12/23/16 DISCHARGE PLAN Discharge Destination: new to [place] at [facility] Transportation: Facility to picker operator 01/18/17 at [id number] DISCHARGE TO FACILITY Facility: [place] [facility]. Living Address: [address] [place] [address] [place], , [place] [address] Contact Name: PCP: at facility w/in 10-12 days of dc Psychiatrist: at facility w/in 10-12 days of dc
[2017-01-18] MEDS: SERTRALINE 25 MG TABLET. PO SCH (08:50)
[2017-01-18] MEDS: POLYETHYLENE GLYCOL 3350 17 GM PACKET. PO SCH (08:50)
[2017-01-18] MEDS: CYANOCOBALAMIN (VITAMIN B-12) 1,000 MCG TABLET. PO SCH (08:50)
[2017-01-18] MEDS: DIVALPROEX 125 MG CAP.SPRINK PO SCH (08:50)
[2017-01-18] MEDS: ASPIRIN 81 MG TAB.CHEW PO SCH (08:50)
[2017-01-18] MEDS: NICOTINE 14MG PATCH. TD SCH (08:50)
[2017-01-18] MEDS: DOCUSATE SODIUM 100 MG CAPSULE PO SCH (08:50)
[2017-01-18] MEDS: ATORVASTATIN CALCIUM 20 MG TABLET PO SCH (08:50)
[2017-01-18] MEDS: QUEtiapine 50 MG TABLET. PO SCH (08:50)
[2017-01-18] MEDS ORDERED: ACET325T9 PO (10:01)
[2017-01-18] MEDS ORDERED: ASPI-630 PO (10:01)
[2017-01-18] MEDS ORDERED: BISA10SU2 RC (10:02)
[2017-01-18] MEDS ORDERED: ATOR40TA59 PO (10:02)
[2017-01-18] MEDS ORDERED: CHOL500016 PO (10:04)
--- NOTE | 2017-01-18 10:08 | NUR ---
Group Note [facility] Orientation Group Start Time: 9:05am End Time: 9:35am Problem: Anxiety Purpose: Reduction of Stress, Orientation, Reduction of Anxiety, Socializing Level of Participation: Absent; pt refused. Behaviors or Symptoms Observed: Interventions: Clarification Response: Plan: Group Participation Additional Comments:
[2017-01-18] MEDS ORDERED: DOCU-109 PO (10:09)
[2017-01-18] MEDS ORDERED: FAMO-63 PO (10:10)
[2017-01-18] MEDS ORDERED: MAGN2400 PO (10:11)
[2017-01-18] MEDS ORDERED: METH29OI TP (10:12)
[2017-01-18] MEDS ORDERED: MIRT15TA PO (10:13)
[2017-01-18] MEDS ORDERED: NICO1PAT25 TD (10:13)
[2017-01-18] MEDS ORDERED: OLAN2.5T3 PO (10:14)
[2017-01-18] MEDS ORDERED: POLY17PO5 PO (10:15)
--- NOTE | 2017-01-18 10:15 | NUR ---
THERAPEUTIC RECREATION GROUP NOTE TITLE :Funny Videos and Jokes ACTIVITY : Humor GOAL : Decrease stress, elevate mood DURATION : 75 Minutes RESPONSE : No participation
[2017-01-18] MEDS ORDERED: SENN-79 PO (10:16)
[2017-01-18] MEDS ORDERED: SERT50TA PO (10:17)
--- NOTE | 2017-01-18 12:03 | NUR ---
Behavior Intervention Response and Plan: BIRP Note: Behavior: Assumed Care of patient, patient located in Hallway at shift change. Patient exhibited the following behavior Calm, Disorganized, Wandering. Brief assessment on rounds of vital signs, medication needs, lab studies, and pain. Treatment plan problems 1-2. Intervention: Patient assessed and the following interventions initiated safety checks 15 Minute Checks Cognitive Assessment , Head to toe Assessment , Medications. Response: After interactions and interventions patient responded in the following manner, Disorganized , Wandering ,Compliant. Continue to assess behaviors and condition will continue to monitor throughout the shift as needed. Patient educated on ADL's, and hand hygiene. Plan: Continue to monitor Master Treatment Plan for patient's progress toward short term goals of Decreased Anxiety, Improved Mood, director long term care goals to return to previous living setting vs placement. Continue to assess patient for changes in above assessment. Monitor for medication needs, pain, and safety concerns. Hourly rounding performed to ensure safe environment.
--- NOTE | 2017-01-18 13:30 | NUR ---
Tobacco Discharge Note [facility] Tobacco Hotline called with patient prior to discharge, YES Tobacco cessation medication listed with current medications for discharge. YES Transition Record was faxed to follow-up provider with the following elements: Reason for admission, procedures, tests, principal diagnosis, pending studies, patient instructions, 21/11 contact information for unit, phone number to obtain pending test results, plan for follow-up care, physician follow-up, advanced directive information, and medication list with dose, duration and instructions. This information was included in the following documents: History and physical, lab results, study results, progress notes, social work planning form, DC instruction form, patient visit summary, and medication reconciliation form. Date & time record faxed:01/18/17 1002 Record faxed to:Yariel dutta [facility] Record discussed with/ report given to:VJ for Admission RN to call back
--- NOTE | 2017-01-18 18:28 | PDOC ---
Exam Anson Demential Exam: Anson Note: Please also refer to the separate dictated note~for this date of service dictated separately.~Patient seen individually. Discussed the patient with Nursing staff reviewed the chart.~Reviewed interim history and current functioning. Reviewed vital signs,~Labs/ Radiology~and current medications noted below. Continue current treatment with the changes noted in the dictated addendum note Assessment: Vital Signs: Vital Signs Date Time Temp Pulse Resp B/P (MAP) Pulse Ox O2 Delivery O2 Flow Rate FiO2 01/18/17 05:54 97.8 77 18 98/63 (75) 97 Room Air I&O Intake and Output 01/19/17 07:00 Intake Total 720 ml Balance 720 ml Intake Oral 720 ml Current Medications: Meds: Current Medications Nicotine (Nicoderm Cq 21mg) 1 patch DAILY TD Last administered on 01/06/17 09: 13; Start 12/24/16 at 09:00; Stop 01/07/17 at 09:00; Status DC Risperidone (RisperDAL) 1 mg BID PO Last administered on 12/24/16 09:07; Start 12/23/16 at 22:00; Stop 12/24/16 at 16:36; Status DC Acetaminophen (Tylenol) 650 mg PRN Q4HRS PRN PO PAIN / TEMP; Start 12/23/16 at 21:30; Stop 01/18/17 at 14:39; Status DC Aspirin (Children'S Aspirin) 81 mg DAILY PO Last administered on 01/18/17 08: 50; Start 12/24/16 at 09:00; Stop 01/18/17 at 14:39; Status DC Bisacodyl (Dulcolax Supp) 10 mg PRN DAILY PRN RC CONSTIPATION; Start 12/23/16 at 21:30; Stop 01/18/17 at 14:39; Status DC Docusate Sodium (Colace) 100 mg BID PO Last administered on 01/18/17 08:50; Start 12/24/16 at 09:00; Stop 01/18/17 at 14:39; Status DC Famotidine (Pepcid) 20 mg PRN BID PRN PO DYSPEPSIA Last administered on 20:30; Start 12/23/16 at 21:30; Stop 01/18/17 at 14:39; Status DC Magnesium Hydroxide (Milk Of Magnesia) 2,400 mg PRN DAILY PRN PO CONSTIPATION; Start 12/23/16 at 21:30; Stop 01/18/17 at 14:39; Status DC Polyethylene Glycol (miraLAX) 17 gm DAILY PO Last administered on 01/18/17 08: 50; Start 12/24/16 at 09:00; Stop 01/18/17 at 14:39; Status DC Sennosides (Senna) 8.6 mg PRN BID PRN PO CONSTIPATION; Start 12/23/16 at 21:30 ; Stop 01/18/17 at 14:39; Status DC Atorvastatin Calcium (Lipitor) 40 mg DAILY PO Last administered on 01/18/17 08 :50; Start 12/24/16 at 09:00; Stop 01/18/17 at 14:39; Status DC Al Hydroxide/Mg Hydroxide (Mylanta Plus Xs) 15 ml PRN AFTMEALHC PRN PO DYSPEPSIA; Start 12/23/16 at 21:30; Stop 01/18/17 at 14:39; Status DC Multi-Ingredient Ointment (Analgesic [place]) 1 betzaida PRN QID PRN TP MUSCLE PAIN; Start 12/23/16 at 21:30; Stop 01/18/17 at 14:39; Status DC Olanzapine (ZyPREXA ZYDIS) 2.5 mg PRN Q2HR PRN PO ANXIETY / AGITATION Last administered on 12/28/16 15:39; Start 12/23/16 at 21:30; Stop 01/18/17 at 14:39 ; Status DC Risperidone (RisperDAL) 1 mg BID PO Last administered on 12/25/16 19:17; Start 12/24/16 at 21:00; Stop 12/25/16 at 21:44; Status DC Risperidone (RisperDAL) 1 mg HS PO ; Start 12/26/16 at 21:00; Stop 12/26/16 at 21:00; Status DC Risperidone (RisperDAL) 0.5 mg DAILY PO Last administered on 12/26/16 09:33; Start 12/26/16 at 09:00; Stop 12/26/16 at 18:34; Status DC Sertraline HCl (Zoloft) 50 mg DAILY PO Last administered on 01/04/17 08:20; Start 12/26/16 at 09:00; Stop 01/04/17 at 18:44; Status DC Vitamin D (Vitamin D3) 50,000 unit WEEKLY PO Last administered on 01/17/17 08: 33; Start 12/27/16 at 09:00; Stop 01/18/17 at 14:39; Status DC Mirtazapine (Remeron) 7.5 mg QHS PO Last administered on 12/26/16 21:14; Start 12/26/16 at 21:00; Stop 12/27/16 at 18:37; Status DC Quetiapine Fumarate (SEROquel) 12.5 mg BID92 PO Last administered on 12/28/16 14:07; Start 12/27/16 at 09:00; Stop 12/28/16 at 18:51; Status DC Quetiapine Fumarate (SEROquel) 25 mg HS PO Last administered on 12/26/16 21:13 ; Start 12/26/16 at 21:00; Stop 12/27/16 at 18:37; Status DC Mirtazapine (Remeron) 15 mg QHS PO Last administered on 01/17/17 20:19; Start 12/27/16 at 21:00; Stop 01/18/17 at 14:39; Status DC Quetiapine Fumarate (SEROquel) 50 mg HS PO Last administered on 12/27/16 19:36 ; Start 12/27/16 at 21:00; Stop 12/28/16 at 18:51; Status DC Trazodone HCl (Desyrel) 50 mg QHS PO Last administered on 12/27/16 19:36; Start 12/27/16 at 21:00; Stop 12/28/16 at 18:53; Status DC Trazodone HCl (Desyrel) 50 mg PRN DAILY PRN PO INSOMNIA, MAY REPEAT IN 1HR; Start 12/27/16 at 18:45; Stop 01/18/17 at 14:39; Status DC Trazodone HCl (Desyrel) 50 mg PRN QHS PRN PO INSOMNIA, MAY REPEAT X1; Start at 13:15; Stop 12/28/16 at 18:53; Status DC Lorazepam (Ativan Intensol) 2 mg PRN Q2HR PRN SL ANXIETY / AGITATION; Start at 15:30; Stop 12/28/16 at 15:37; Status DC Lorazepam (Ativan Intensol) 0.5 mg PRN Q2HR PRN SL ANXIETY / AGITATION Last administered on 01/12/17 10:56; Start 12/28/16 at 15:45; Stop 01/18/17 at 14:39 ; Status DC Quetiapine Fumarate (SEROquel) 75 mg HS PO Last administered on 01/17/17 20:18 ; Start 12/28/16 at 21:00; Stop 01/18/17 at 14:39; Status DC Quetiapine Fumarate (SEROquel) 50 mg BID92 PO Last administered on 01/18/17 08 :50; Start 12/29/16 at 09:00; Stop 01/18/17 at 14:39; Status DC Trazodone HCl (Desyrel) 100 mg HS PO Last administered on 01/17/17 20:17; Start 12/28/16 at 21:00; Stop 01/18/17 at 14:39; Status DC Trazodone HCl (Desyrel) 100 mg PRN QHS PRN PO INSOMNIA MAY REPEAT X1 Last administered on 12/28/16 19:48; Start 12/28/16 at 19:00; Stop 01/18/17 at 14:39 ; Status DC Valproic Acid (Depakene) 250 mg BID PO Last administered on 01/10/17 20:14; Start 12/28/16 at 21:00; Stop 01/11/17 at 04:43; Status DC Cyanocobalamin (Vitamin B-12) 1,000 mcg DAILY PO Last administered on 08:50; Start 01/04/17 at 09:00; Stop 01/18/17 at 14:39; Status DC Sertraline HCl (Zoloft) 75 mg DAILY PO Last administered on 01/18/17 08:50; Start 01/05/17 at 09:00; Stop 01/18/17 at 14:39; Status DC Nicotine (Nicoderm Cq 14mg) 1 patch DAILY TD Last administered on 01/18/17 08: 50; Start 01/07/17 at 09:00; Stop 01/18/17 at 14:39; Status DC Divalproex Sodium (Depakote Sprinkles) 250 mg BID PO Last administered on t 08:50; Start 01/11/17 at 09:00; Stop 01/18/17 at 14:39; Status DC Active Scripts Active Reported Trazodone Hcl 50 Mg Tablet 50 Mg PO PRN DAILY PRN Trazodone Hcl 50 Mg Tablet 100 Mg PO PRN QHS PRN Zoloft (Sertraline Hcl) 50 Mg Tablet 75 Mg PO DAILY Senna (Sennosides) 8.6 Mg Tablet 8.6 Mg PO PRN BID PRN Seroquel (Quetiapine Fumarate) 50 Mg Tablet 50 Mg PO BID92 Seroquel (Quetiapine Fumarate) 50 Mg Tablet 75 Mg PO QHS Miralax (Polyethylene Glycol 3350) 17 Gm Powd.pack 17 Gm PO DAILY Zyprexa (Olanzapine) 2.5 Mg Tablet 2.5 Mg PO PRN Q2HR PRN NICODERM CQ 14mg (Nicotine) 1 Each Patch.td24 1 Patch TD DAILY Remeron (Mirtazapine) 15 Mg Tablet 15 Mg PO QHS Analgesic [place] (Methyl Salicylate/Menthol) 28 Gm Oint...g. 1 Betzaida TP PRN QID PRN Milk Of Magnesia (Magnesium Hydroxide) 2,400 Mg/10 Ml Oral.susp 2,400 Mg PO PRN DAILY PRN Pepcid (Famotidine) 20 Mg Tablet 20 Mg PO PRN BID PRN Colace (Docusate Sodium) 100 Mg Capsule 100 Mg PO BID Depakote Sprinkle (Divalproex Sodium) 125 Mg Cap.sprink 250 Mg PO BID Vitamin B-12 (Cyanocobalamin (Vitamin B-12)) 1,000 Mcg Tablet 1,000 Mcg PO DAILY Vitamin D3 (Cholecalciferol (Vitamin D3)) 5,000 Unit Tablet 50,000 Unit PO WEEKLY start date: 12/27/16 Bisacodyl 10 Mg Supp.rect 10 Mg RC PRN DAILY PRN Atorvastatin Calcium 40 Mg Tablet 40 Mg PO DAILY Aspirin 81 Mg Tab.chew 81 Mg PO DAILY Tylenol (Acetaminophen) 325 Mg Tablet 650 Mg PO PRN Q4HRS PRN Depakote Sprinkle (Divalproex Sodium) 125 Mg Cap.sprink 250 Mg PO BID Vitamin B-12 (Cyanocobalamin (Vitamin B-12)) 1,000 Mcg Tablet 1,000 Mcg PO DAILY D3-50 (Cholecalciferol (Vitamin D3)) 50,000 Unit Capsule 50,000 Unit PO WEEKLY Trazodone Hcl 100 Mg Tablet 100 Mg PO HS PRN Trazodone Hcl 50 Mg Tablet 50 Mg PO PRN DAILY Trazodone Hcl 100 Mg Tablet 100 Mg PO HS Zoloft (Sertraline Hcl) 25 Mg Tablet 75 Mg PO DAILY Seroquel (Quetiapine Fumarate) 50 Mg Tablet 50 Mg PO BID92 Seroquel (Quetiapine Fumarate) 25 Mg Tablet 75 Mg PO HS Zyprexa Zydis (Olanzapine) 5 Mg Tab.rapdis 2.5 Mg PO PRN Q2HR PRN MDD 15 mg/24 hrs Mirtazapine 15 Mg Tablet 15 Mg PO HS Famotidine 20 Mg Tablet 20 Mg PO PRN BID PRN Senna (Sennosides) 8.6 Mg Tablet 8.6 Mg PO PRN BID PRN Milk Of Magnesia (Magnesium Hydroxide) 400 Mg/5 Ml Oral.susp 2,400 Mg PO PRN DAILY PRN Dulcolax (Bisacodyl) 10 Mg Supp.rect 10 Mg RC PRN DAILY Tylenol (Acetaminophen) 325 Mg Tablet 650 Mg PO Q4HRS PRN Polyethylene Glycol 3350 255 Gm Powder 17 Gm PO DAILY Docusate Sodium 100 Mg Capsule 100 Mg PO BID Atorvastatin Calcium 40 Mg Tablet 40 Mg PO DAILY Aspirin 81 Mg Tab.chew 81 Mg PO DAILY Diagnosis: Problems: (1) Impulse control disorder (2) Dementia, vascular, with depression (3) Dementia, vascular, with delusions (4) Anxiety disorder RELL PUENTE MD Jan 18, 2017 18:28
--- NOTE | 2017-01-19 05:42 | PN ---
DATE: 01/17/2017 PSYCHIATRIC PROGRESS NOTE This is a late entry 01/17/2017, covers elements not covered in my initial note of 01/17/2017. Met with the patient in the evening of 01/17/2017. The patient refused to come to the dining room for meals; remains confused; expressive aphasia, significant. REVIEW OF SYSTEMS: No CV, , pulmonary, eye system symptoms on review. Reliability poor. MENTAL STATUS EXAM: Oriented to herself. Insight, judgment, recent and remote memory, attention, concentration, fund of knowledge poor, consistent with her diagnosis. LABORATORY DATA: Reviewed. IMPRESSION: Unchanged from initial note. PLAN: Continue current psychotropics. Reviewed drug interactions. Risk/benefit ratio favors no further change, possible transition to a lower level of care, 01/18/2017. MAN Ketan PUENTE MD DR: BRIONNA/gui JOB#: [id number] / [id number]
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
== END 2017-01-18 14:39 | DRG 884 ==
LOC: GEROPSY 19:48
PROVIDERS: ADMIT Psychiatry & Neurology Psychiatry; ATTEND Psychiatry & Neurology Psychiatry
DX: F01.51 Vascular dementia, unspecified severity, with behavioral disturbance (principal); I48.91 Unspecified atrial fibrillation; G30.9 Alzheimer's disease, unspecified; F02.81 Dementia in other diseases classified elsewhere, unspecified severity, with behavioral disturbance; F22 Delusional disorders; R13.10 Dysphagia, unspecified; E78.5 Hyperlipidemia, unspecified; F17.210 Nicotine dependence, cigarettes, uncomplicated; F32.9 Major depressive disorder, single episode, unspecified; F41.1 Generalized anxiety disorder; F63.9 Impulse disorder, unspecified; F80.2 Mixed receptive-expressive language disorder; G47.00 Insomnia, unspecified; I10 Essential (primary) hypertension; K21.9 Gastro-esophageal reflux disease without esophagitis; R27.0 Ataxia, unspecified; K27.9 Peptic ulcer, site unspecified, unspecified as acute or chronic, without hemorrhage or perforation; M19.90 Unspecified osteoarthritis, unspecified site; Z79.899 Other long term (current) drug therapy; I69.320 Aphasia following cerebral infarction; Z87.11 Personal history of peptic ulcer disease; Z91.81 History of falling; Z88.8 Allergy status to other drugs, medicaments and biological substances; Z91.83 Wandering in diseases classified elsewhere; I69.390 Apraxia following cerebral infarction
CPT/HCPCS: 36415; 80053; 80061; 80164; 81001; 82306; 82607; 83036; 83540; 83550; 83735; 84436; 84443; 84480; 85025; 86592; 86593; 93005; 99406